=== PATIENT | male | born 1970 | race Caucasian/White ===

== ENCOUNTER → 2019-06-26 09:06 | Outpatient (BNVA) | payer SELFPAY | PROVIDERS: PCP Nurse Practitioner; Visit Provider Nurse Practitioner Family | DX: I10 Essential (primary) hypertension (principal); F17.200 Nicotine dependence, unspecified, uncomplicated; H00.15 Chalazion left lower eyelid; R06.2 Wheezing | CPT/HCPCS: 80061 ==

== ENCOUNTER → 2020-02-20 15:35 | Outpatient (BNVA) | payer OTHER, SELFPAY | PROVIDERS: PCP Nurse Practitioner; Visit Provider Nurse Practitioner Family | DX: M54.2 Cervicalgia (principal); M25.512 Pain in left shoulder; V89.2XXS Person injured in unspecified motor-vehicle accident, traffic, sequela | CPT/HCPCS: 72040; 73030 ==

== ENCOUNTER → 2020-04-07 14:50 | Outpatient (BNVA) | payer OTHER, SELFPAY | PROVIDERS: PCP Nurse Practitioner; Visit Provider Nurse Practitioner Family | DX: R07.89 Other chest pain (principal) | CPT/HCPCS: 71046 ==

== ENCOUNTER → 2020-11-13 15:59 | Outpatient (BNVA) | payer SELFPAY | PROVIDERS: PCP Nurse Practitioner; Visit Provider Family Medicine | DX: E78.5 Hyperlipidemia, unspecified (principal); I10 Essential (primary) hypertension; Z68.35 Body mass index [BMI] 35.0-35.9, adult; F17.210 Nicotine dependence, cigarettes, uncomplicated | CPT/HCPCS: 80053; 80061; 83721; 84443 ==

== ENCOUNTER 2021-12-22 14:14 | Emergency (ER) | payer SELFPAY ==
[2021-12-22 15:04] VITALS: BP 101/68; PULSE 108; RESP 16; TEMP 36.9; BMI 36.6
--- NOTE | 2021-12-22 15:04 | XRR_ITS ---
PROCEDURE INFORMATION: Exam: XR Chest Exam date and time: 12/22/2021 3:15 PM Age: 51 years old Clinical indication: Chest pressure; Patient HX: History--chest pain since yesterday TECHNIQUE: Imaging protocol: Radiologic exam of the chest. Views: 1 view. COMPARISON: CR XR chest 2V* [id number] 04/07/2020 2:49 PM FINDINGS: Lungs: Cardiac silhouette size, and vascularity are somewhat accentuated, likely related to poor inspiration/expansion however clinical correlation for mild CHF should be obtained. Upper lungs are clear. Lung bases are suboptimally assessed. Pleural spaces: No large pleural effusions however CP angles are partially excluded.. No pneumothorax. Heart/Mediastinum: As above. Bones/joints: No acute osseous findings. Other findings: Single view was submitted. XR/XR chest 1V portable [id number] IMPRESSION: 1. Accentuated cardiac silhouette size and vascularity. See discussion above. 2. No obvious acute consolidation. Suboptimal lung base assessment. Followup including lateral view may be obtained if clinically indicated.
--- NOTE | 2021-12-22 15:18 | ECG_ITS ---
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 Measurements Intervals [place] Rate: 99 P: 20 MD: 155 QRS: 81 QRSD: 86 T: 2 QT: 314 QTc: 403 Interpretive Statements SINUS RHYTHM Compared to ECG 03/27/2019 00:51:37 Sinus tachycardia no longer present Electronically Signed On 12-22-2021 17:28:27 CDT by Riccardo Marie M.D. [email or web address]
[2021-12-22 15:21] LABS: Basophils % 0.3 %; Eosinophils # 0.5 10^3/uL (0.0-0.8); Eosinophils % 5.9 %; Hematocrit 49.7 % (42.0-52.0); Hemoglobin 16.6 g/dL (11.7-16.6); Lymphocytes # 1.6 10^3/uL (0.8-4.8); Lymphocytes % 18.7 %; Mean Corpuscular HGB Conc 33.4 g/dL (30.0-36.0); Mean Corpuscular Hemoglobin 30.5 pg (28.0-34.0); Mean Corpuscular Volume 91.2 fl (80-94); Mean Platelet Volume 11.3 fL (7.4-10.4); Monocytes # 0.9 10^3/uL (0.2-0.9); Monocytes % 9.9 %; Neutrophils # 5.55 10^3/uL (1.8-7.7); Neutrophils % 64.4 %; Nucleated Red Blood Cells % 0 %; Platelet Count 152 10^3/cmm (130-400); Red Blood Count 5.45 10^6/uL (4.1-5.3); Red Cell Distribution Width 13.5 % (12.1-15.1); White Blood Count 8.6 10^3/uL (4.0-10.0)
--- NOTE | 2021-12-22 15:33 | ED_ITS ---
Documented by User: Clyde Peterson DO 12/23/21 08:23 HPI - Chest Pain General: Chief Complaint: Chest Pain Stated Complaint: upper abd pain Time Seen by Provider: 12/22/21 15:04 Source: patient Mode of arrival: ambulatory Limitations: no limitations History of Present Illness: 51-year-old male presents emergency room complaining of shortness of breath and chest scum for the last couple of weeks. Has not had any fever sweats or chills not anything that exacerbates or relieves it he also had some accompanying dizziness states it is worse when he bends over and stands up but has been happening more frequently. He had previously had an angiogram due to chest pain which he tells me was negative this was done about 8 years ago. He is currently on lisinopril as well as Lasix and potassium supplement. Has not had any recent medication changes. He is not diabetic and does not smoke. He has not noticed anything that exacerbates or relieves his symptoms of chest pain. MD complaint: chest pain Onset (ago): week(s) (2) Timing of current episode: episodic Prior episodes: Yes Onset: during rest and during exertion Pain location: left chest Pain radiation: none Severity: mild Quality: tightness Relieving factors: nothing Exacerbating factors: nothing Associated symptoms: Deny abdominal pain, diaphoresis, dyspnea, fever(s), leg edema, nausea, palpitations, sense of impending doom, syncope or vomiting Treatment prior to arrival: none Review of Systems Const: Denies: fever(s), chills, fatigue, malaise or diaphoresis ENMT: Denies: throat pain, ear or mastoid pain, nasal discharge or nasal conge stion Card: Reports: chest pain; Denies: palpitations, irregular heart rhythm or syncope Resp: Denies: dyspnea, productive cough or non-productive cough GI: Denies: abdominal pain, nausea or vomiting : Denies: flank pain, dysuria, urinary frequency or urinary urgency Skin/Breast: Denies: rash or pruritus PFSH ED PFSH: Medical History Dyslipidemia Hypertension Smoker Surgical History History of arthroscopic surgery of shoulder right 2014 History of surgery on left wrist cyst removed Family History Mother Cancer Hypertension Grandmother Diabetes Social History Second hand smoke exposure: No Smoking risk assessment/counseling performed?: Yes Alcohol intake: never Desire information about alcohol rehabilitation?: No Counseling given: No Desire information about substance/drug rehabilitation?: No Counseling given: No Adopted: No Caregiver/support person: No Lives independently: Yes Household members: significant other Housing: Manufactured/Mobile home Marital status: Number of children: 2 Highest education level completed: Some College, No Degree service: No Current occupational status: unemployed Pets and animals: No History of recent travel: No Physical Exam Const: GENERAL APPEARANCE: cooperative and comfortable ORIENTATION/CONSCIOUSNESS: Yes awake, Yes oriented to person, Yes oriented to place and Yes oriented to time HENMT: COMMON NORMALS: normocephalic and atraumatic HEAD & SCALP: no rmocephalic and atraumatic Neck/C-Spine: COMMON NORMALS: no JVD Resp: COMMON NORMALS: normal respiratory effort, No retractions, No use of accessory muscles and clear to auscultation bilaterally AUSCULTATION: clear to auscultation bilaterally Cardio: COMMON NORMALS: no JVD, regular rate, regular rhythm and No murmurs present (Cardio) RATE: regular rate RHYTHM: regular rhythm GI: COMMON NORMALS: Soft to palpation and No hepatosplenomegaly present AUSCULTATION: Yes normoactive bowel sounds PALPATION: Yes Soft to palpation, No Tenderness to palpation present (GI), No Guarding due to palpation present (GI) and Yes No hepatosplenomegaly present Extremity: COMMON NORMALS: normal to inspection, capillary refill normal, no clubbing, cyanosis or edema, no calf tenderness and no pedal edema Neuro: SENSORIUM/ORIENTATION: Yes oriented to person, Yes oriented to place and Yes oriented to time Skin: COMMON NORMALS: no rashes or lesions noted GENERAL SKIN EXAM: no rashes or lesions noted Course Vital Signs: Vital signs: Vital Signs Temperature 98.5 F 12/22/21 15:04 Pulse Rate 75 12/22/21 18:38 Respiratory Rate 18 12/22/21 18:38 Blood Pressure 101/68 12/22/21 18:38 Pulse Oximetry 97 12/22/21 18:38 MDM - Chest Pain Medical Decision Making Care signed out to Dr. Sim at change of shift. See final notes for diagnosis and disposition. Patient presents here with chest pains atypical in nature patient's troponins here are normal did have slightly elevated creatinine but he feels improved here after fluids was able to urinate could have some heat exposure as well causing his symptoms. Feel he is stable for discharge he is to follow-up his PCP in 2 to 4 days return if worsening he understands agrees to plan. Medical Records I reviewed the patient's medical records. Lab Data I reviewed the patient's lab results. : 12/22/21 15:10 12/22/21 15:10 Radiology Impressions Chest X-Ray 12/22/21 15:04 IMPRESSION: 1. Accentuated cardiac silhouette size and vascularity. See discussion above. 2. No obvious acute consolidation. Suboptimal lung base assessment. Followup including lateral view may be obtained if clinically indicated. Laboratory Results WBC 8.6 10^3/uL (4.0-10.0) 12/22/21 15:10 RBC 5.45 10^6/uL (4.1-5.3) H 12/22/21 15:10 Hgb 16.6 g/dL (11.7-16.6) 12/22/21 15:10 Hct 49.7 % (42.0-52.0) 12/22/21 15:10 MCV 91.2 fl (80-94) 12/22/21 15:10 MCH 30.5 pg (28.0-34.0) 12/22/21 15:10 MCHC 33.4 g/dL (30.0-36.0) 12/22/21 15:10 RDW 13.5 % (12.1-15.1) 12/22/21 15:10 Plt Count 152 10^3/cmm (130-400) 12/22/21 15:10 MPV 11.3 fL (7.4-10.4) H 12/22/21 15:10 Neut % (Auto) 64.4 % 12/22/21 15:10 Lymph % (Auto) 18.7 % 12/22/21 15:10 [place] % (Auto) 9.9 % 12/22/21 15:10 Eos % (Auto) 5.9 % 12/22/21 15:10 Baso % (Auto) 0.3 % 12/22/21 15:10 Neut # (Auto) 5.55 10^3/uL (1.8-7.7) 12/22/21 15:10 Lymph # (Auto) 1.6 10^3/uL (0.8-4.8) 12/22/21 15:10 [place] # (Auto) 0.9 10^3/uL (0.2-0.9) 12/22/21 15:10 Eos # (Auto) 0.5 10^3/uL (0.0-0.8) 12/22/21 15:10 Baso # (Auto) 0.0 10^3/uL (0.0-0.1) 12/22/21 15:10 Nucleated RBC % (auto) 0 % 12/22/21 15:10 Nucleated RBCs # 0.0 /100WBC 12/22/21 15:10 Sodium 140 mmol/L (136-145) 12/22/21 15:10 Potassium 4.7 mmol/L (3.5-5.1) 12/22/21 15:10 Chloride 100 mmol/L (98-107) 12/22/21 15:10 Carbon Dioxide 26 mmol/L (22-29) 12/22/21 15:10 Anion Gap 18.7 (5-19) 12/22/21 15:10 BUN 42 mg/dL (6-20) H 12/22/21 15:10 Creatinine 2.0 mg/dL (0.7-1.2) H 12/22/21 15:10 GFR Calculation 35.4 mL/min (90-130) L 12/22/21 15:10 Glucose 101 mg/dL (65-115) 12/22/21 15:10 Calculated Osmolality 301 mOsm/kg (285-295) H 12/22/21 15:10 Calcium 10.0 mg/dL (8.5-10.5) 12/22/21 15:10 Total Bilirubin 0.3 mg/dL (0.15-1.2) 12/22/21 15:10 AST 14 U/L (0-40) 12/22/21 15:10 ALT 14 U/L (0-41) 12/22/21 15:10 Alkaline Phosphatase 87 IU/L (40-130) 12/22/21 15:10 Troponin T Baseline 8 ng/L (0-15) 12/22/21 15:10 Troponin T 120 Minute 6.00 ng/L (0-15) 12/22/21 17:01 Delta Troponin T 2 ABS# (0-10) 12/22/21 17:01 Total Protein 8.5 g/dL (6.6-8.7) 12/22/21 15:10 Albumin 4.6 g/dL (3.5-5.2) 12/22/21 15:10 Globulin 3.9 g/dL (1.3-4.6) 12/22/21 15:10 Lipase 46 U/L (13-60) 12/22/21 15:10 Discharge Plan Discharge Patient Disposition: Home Clinical Impression: Chest pain Condition: Stable Prescriptions: No Action aspirin [Adult Low Dose Aspirin] 81 mg tablet,delayed release (DR/EC) 81 mg PO DAILY 0RF rizatriptan [Maxalt] 10 mg tablet See Rx Instructions PO .COMPLEX Qty: 14 2RF Rx Instructions: take 1 tab at onset of headache; if no relief may repeat 1 tab after at least 2 hrs; max = 2 tabs/24 hr PO furosemide 20 mg tablet See Rx Instructions .ROUTE .COMPLEX Qty: 30 0RF Dose Instruction: Take 1 tablet by mouth once daily Rx Instructions: Take 1 tablet by mouth once daily lisinopril 40 mg tablet See Rx Instructions .ROUTE .COMPLEX Qty: 30 3RF Dose Instruction: Take 1 tablet by mouth once daily Rx Instructions: Take 1 tablet by mouth once daily triamcinolone acetonide 0.1 % cream 1 applic topical BID Qty: 30 1RF potassium chloride 10 mEq capsule, extended release 10 meq PO DAILY Qty: 30 2RF Discharge Orders: Discharge ED (Routine); Ordered 12/22/21 Ordered By: Jorge Sim Referrals: Marla Cheatham, RUSSIAN HISTORY PROFESSOR-C [Primary Care Provider] - Discharge Diet: Advance as tolerated Discharge Activity: Resume usual activity Patient Instructions: Chest Pain (ED) Coding Level of Care Code ED Manager Of It for Chg Fwd Exam Comprehensive Documented by User: Jorge Sim MD 12/22/21 19:00 HPI - Chest Pain General: Chief Complaint: Chest Pain Stated Complaint: upper abd pain Time Seen by Provider: 12/22/21 15:04 PFSH ED PFSH: Medical History Dyslipidemia Hypertension Smoker Surgical History History of arthroscopic surgery of shoulder right 2014 History of surgery on left wrist cyst removed Family History Mother Cancer Hypertension Grandmother Diabetes Social History Second hand smoke exposure: No Smoking risk assessment/counseling performed?: Yes Alcohol intake: never Desire information about alcohol rehabilitation?: No Counseling given: No Desire information about substance/drug rehabilitation?: No Counseling given: No Adopted: No Caregiver/support person: No Lives independently: Yes Household members: significant other Housing: Manufactured/Mobile home Marital status: Number of children: 2 Highest education level completed: Some College, No Degree service: No Current occupational status: unemployed Pets and animals: No History of recent travel: No Course Vital Signs: Vital signs: Vital Signs Temperature 98.5 F 12/22/21 15:04 Pulse Rate 75 12/22/21 18:38 Respiratory Rate 18 12/22/21 18:38 Blood Pressure 101/68 12/22/21 18:38 Pulse Oximetry 97 12/22/21 18:38 MDM - Chest Pain Medical Decision Making Patient presents here with chest pains atypical in nature patient's troponins here are normal did have slightly elevated creatinine but he feels improved here after fluids was able to urinate could have some heat exposure as well causing his symptoms. Feel he is stable for discharge he is to follow-up his PCP in 2 to 4 days return if worsening he understands agrees to plan. Lab Data : 12/22/21 15:10 12/22/21 15:10 Radiology Impressions Chest X-Ray 12/22/21 15:04 IMPRESSION: 1. Accentuated cardiac silhouette size and vascularity. See discussion above. 2. No obvious acute consolidation. Suboptimal lung base assessment. Followup including lateral view may be obtained if clinically indicated. Laboratory Results WBC 8.6 10^3/uL (4.0-10.0) 12/22/21 15:10 RBC 5.45 10^6/uL (4.1-5.3) H 12/22/21 15:10 Hgb 16.6 g/dL (11.7-16.6) 12/22/21 15:10 Hct 49.7 % (42.0-52.0) 12/22/21 15:10 MCV 91.2 fl (80-94) 12/22/21 15:10 MCH 30.5 pg (28.0-34.0) 12/22/21 15:10 MCHC 33.4 g/dL (30.0-36.0) 12/22/21 15:10 RDW 13.5 % (12.1-15.1) 12/22/21 15:10 Plt Count 152 10^3/cmm (130-400) 12/22/21 15:10 MPV 11.3 fL (7.4-10.4) H 12/22/21 15:10 Neut % (Auto) 64.4 % 12/22/21 15:10 Lymph % (Auto) 18.7 % 12/22/21 15:10 [place] % (Auto) 9.9 % 12/22/21 15:10 Eos % (Auto) 5.9 % 12/22/21 15:10 Baso % (Auto) 0.3 % 12/22/21 15:10 Neut # (Auto) 5.55 10^3/uL (1.8-7.7) 12/22/21 15:10 Lymph # (Auto) 1.6 10^3/uL (0.8-4.8) 12/22/21 15:10 [place] # (Auto) 0.9 10^3/uL (0.2-0.9) 12/22/21 15:10 Eos # (Auto) 0.5 10^3/uL (0.0-0.8) 12/22/21 15:10 Baso # (Auto) 0.0 10^3/uL (0.0-0.1) 12/22/21 15:10 Nucleated RBC % (auto) 0 % 12/22/21 15:10 Nucleated RBCs # 0.0 /100WBC 12/22/21 15:10 Sodium 140 mmol/L (136-145) 12/22/21 15:10 Potassium 4.7 mmol/L (3.5-5.1) 12/22/21 15:10 Chloride 100 mmol/L (98-107) 12/22/21 15:10 Carbon Dioxide 26 mmol/L (22-29) 12/22/21 15:10 Anion Gap 18.7 (5-19) 12/22/21 15:10 BUN 42 mg/dL (6-20) H 12/22/21 15:10 Creatinine 2.0 mg/dL (0.7-1.2) H 12/22/21 15:10 GFR Calculation 35.4 mL/min (90-130) L 12/22/21 15:10 Glucose 101 mg/dL (65-115) 12/22/21 15:10 Calculated Osmolality 301 mOsm/kg (285-295) H 12/22/21 15:10 Calcium 10.0 mg/dL (8.5-10.5) 12/22/21 15:10 Total Bilirubin 0.3 mg/dL (0.15-1.2) 12/22/21 15:10 AST 14 U/L (0-40) 12/22/21 15:10 ALT 14 U/L (0-41) 12/22/21 15:10 Alkaline Phosphatase 87 IU/L (40-130) 12/22/21 15:10 Troponin T Baseline 8 ng/L (0-15) 12/22/21 15:10 Troponin T 120 Minute 6.00 ng/L (0-15) 12/22/21 17:01 Delta Troponin T 2 ABS# (0-10) 12/22/21 17:01 Total Protein 8.5 g/dL (6.6-8.7) 12/22/21 15:10 Albumin 4.6 g/dL (3.5-5.2) 12/22/21 15:10 Globulin 3.9 g/dL (1.3-4.6) 12/22/21 15:10 Lipase 46 U/L (13-60) 12/22/21 15:10 Discharge Plan Discharge Patient Disposition: Home Clinical Impression: Chest pain Condition: Stable Prescriptions: No Action aspirin [Adult Low Dose Aspirin] 81 mg tablet,delayed release (DR/EC) 81 mg PO DAILY 0RF rizatriptan [Maxalt] 10 mg tablet See Rx Instructions PO .COMPLEX Qty: 14 2RF Rx Instructions: take 1 tab at onset of headache; if no relief may repeat 1 tab after at least 2 hrs; max = 2 tabs/24 hr PO furosemide 20 mg tablet See Rx Instructions .ROUTE .COMPLEX Qty: 30 0RF Dose Instruction: Take 1 tablet by mouth once daily Rx Instructions: Take 1 tablet by mouth once daily lisinopril 40 mg tablet See Rx Instructions .ROUTE .COMPLEX Qty: 30 3RF Dose Instruction: Take 1 tablet by mouth once daily Rx Instructions: Take 1 tablet by mouth once daily triamcinolone acetonide 0.1 % cream 1 applic topical BID Qty: 30 1RF potassium chloride 10 mEq capsule, extended release 10 meq PO DAILY Qty: 30 2RF Discharge Orders: Discharge ED (Routine); Ordered 12/22/21 Ordered By: Jorge Sim Referrals: Marla Cheatham, RUSSIAN HISTORY PROFESSOR-C [Primary Care Provider] - Discharge Diet: Advance as tolerated Discharge Activity: Resume usual activity Patient Instructions: Chest Pain (ED) Coding Level of Care Code ED Manager Of It for Peggyg Fwd Exam Comprehensive
[2021-12-22 15:38] LABS: Troponin(5th) Baseline 8 ng/L (0-15)
[2021-12-22 15:47] LABS: Alanine Aminotransferase 14 U/L (0-41); Albumin Level 4.6 g/dL (3.5-5.2); Alkaline Phosphatase 87 IU/L (40-130); Anion Gap 18.7 (5-19); Aspartate Amino Transferase 14 U/L (0-40); Blood Urea Nitrogen 42 mg/dL (6-20); Carbon Dioxide 26 mmol/L (22-29); Chloride 100 mmol/L (98-107); Globulin 3.9 g/dL (1.3-4.6); Glomerular Filtration Rate 35.4 mL/min (90-130); Glucose 101 mg/dL (65-115); Lipase 46 U/L (13-60); Osmolality Calculated 301 mOsm/kg (285-295); Potassium 4.7 mmol/L (3.5-5.1); Sodium 140 mmol/L (136-145); Total Bilirubin 0.3 mg/dL (0.15-1.2); Total Protein 8.5 g/dL (6.6-8.7)
[2021-12-22] MEDS: sodium chloride 0.9% 1,000 ML 999 ML IV ×2 (16:56→16:58)
[2021-12-22 18:29] LABS: Troponin 5 2HR Delta 2 ABS# (0-10)
[2021-12-22 18:38] VITALS: BP 101/68; PULSE 75; RESP 18; O2SAT 97
== END 2021-12-22 19:16 | disposition home or self-care (01) ==
PROVIDERS: Emergency Medicine; Family Medicine; Emergency Provider Emergency Medicine; PCP Nurse Practitioner
DX: R07.9 Chest pain, unspecified (principal); Z79.82 Long term (current) use of aspirin; I10 Essential (primary) hypertension; E78.5 Hyperlipidemia, unspecified
CPT/HCPCS: 71045; 80053; 83690; 84484; 85025; 93005; 96360; 99285; J7030

== ENCOUNTER 2022-02-05 12:23 | Emergency (ER) | payer SELFPAY ==
[2022-02-05 12:36] VITALS: BP 121/82; PULSE 90; RESP 16; TEMP 36.8; O2SAT 96; BMI 36.6
--- NOTE | 2022-02-05 12:40 | ECG_ITS ---
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 Measurements Intervals [place] Rate: 87 P: 32 ME: 171 QRS: 40 QRSD: 97 T: 34 QT: 327 QTc: 394 Interpretive Statements SINUS RHYTHM INTERPRETATION BASED ON A DEFAULT AGE OF 40 YEARS Compared to ECG 12/22/2021 15:12:36 No significant changes Electronically Signed On 02-06-2022 9:19:51 CDT by Donny Scales M.D. [id number] f
--- NOTE | 2022-02-05 12:43 | XR_ITS ---
WS: [id number] Portable AP upright chest, 02/05/2022 Clinical Data: Chest Pain Comparison: Portable chest, 12/22/2021. Findings: No nodules, masses or effusions are seen. The heart is slightly enlarged. The pulmonary vas cularity is not increased. No pneumonia or pneumothorax is seen. XR/XR chest 1V portable [id number] Impression: Mild cardiomegaly.
--- NOTE | 2022-02-05 12:50 | W.ED.CHESTPA ---
HPI - Chest Pain General: Chief Complaint: Chest Pain Stated Complaint: Chest Pain Time Seen by Provider: 02/05/22 12:47 Source: patient and family Mode of arrival: ambulatory Limitations: no limitations History of Present Illness: This patient is in the emergency department today because he is concerned about fatigue upper chest and shoulder and arm pain. He states the symptoms of been coming on over the past week perhaps 2 weeks. He states he just does not feel right. He states he feels fatigued and less energetic than normal. 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 He denies any associated shortness of breath or nausea or sweating with the symptoms. He states he thinks he has been drinking quite a bit of fluids and been eating relatively normal. He has not had any other constitutional symptoms such as a cough, fever, joint pains body aches otherwise. He states he is not been exposed to any infectious disease that he is aware. No one else is ill at home. He is a tobacco user and occasionally wheezes but he does not use his inhaler very much. He states his sleep is been relatively normal although again he is felt this fatigue over the past 2 weeks. He states he is not sad or depressed. He does not drink alcohol. He has hypertension and takes lisinopril and previously took furosemide but is does no longer take that medication and its not clear why he was taking it. He states that he has been told he had heart failure he had no peripheral edema etc. MD complaint: chest heaviness and chest discomfort Onset: during exertion Pain location: substernal Pain radiation: left shoulder and right shoulder Quality: tightness and aching Relieving factors: rest Exacerbating factors: exertion Associated symptoms: Deny dyspnea, fever(s), nausea, palpitations or vomiting Risk Factors: Coronary artery disease risk factors: smoking history and hypertension Review of Systems Const: Denies: fever(s), chills or body aches Eyes: Denies: change in vision ENMT: Denies: odynophagia, dental pain, nasal discharge or nasal congestion Card: Reports: pre-syncope; Denies: palpitations, irregular heart rhythm or swelling of feet/ankles Resp: Reports: wheezing (Occasionally); Denies: dyspnea, productive cough or non-productive cough GI: Denies: nausea, vomiting or diarrhea : Denies: flank pain, difficulty urinating, dysuria or urinary frequency Skin/Breast: Denies: rash Neuro: Denies: headache(s), numbness in extremities, weakness in extremities, sensory changes or difficulty walking Psych: Denies: anxiety, depression, sleeping less or change in appetite Endo: Denies: polyuria or polydipsia Raj/Lymph: Denies: easy bruising PFSH ED PFSH: Medical History Dyslipidemia Hypertension Smoker Surgical History History of arthroscopic surgery of shoulder right 2014 History of surgery on left wrist cyst removed Family History Mother Cancer Hypertension Grandmother Diabetes Social History Smoking and tobacco status: never smoked Second hand smoke exposure: No Smoking risk assessment/counseling performed?: Yes Alcohol intake: never Desire information about alcohol rehabilitation?: No Counseling given: No Desire information about substance/drug rehabilitation?: No Counseling given: No Adopted: No Caregiver/support person: No Lives independently: Yes Household members: significant other Housing: Manufactured/Mobile home Marital status: Number of children: 2 Highest education level completed: Some College, No Degree service: No Current occupational status: unemployed Pets and animals: No History of recent travel: No Physical Exam Narrative: EXAM NARRATIVE: Patient is comfortable, cooperative, alert. Const: COMMON NORMALS: no acute distress, patient oriented x3, healthy appearing and alert NUTRITIONAL APPEARANCE: overweight HENMT: COMMON NORMALS: normocephalic, atraumatic, moist oral mucous membranes and oropharynx normal HEAD & SCALP: normocephalic and atraumatic FACE & SINUS: normal facial exam Eye: COMMON NORMALS: Equal, round and reactive pupils present, EOMs intact bilaterally and conjunctivae normal CONJUNCTIVA: Yes conjunctivae normal PUPIL: Yes Equal, round and reactive pupils present Neck/C-Spine: COMMON NORMALS: full ROM CERVICAL SPINE: No Cervical spine tenderness, No Paracervical muscle tenderness, No Paracervical spasm and No Trapezius muscle tenderness Lymph: LYMPHATIC: no lymphadenopathy noted Chest: COMMONS NORMALS: normal inspection of the chest and normal palpation of entire chest wall Resp: COMMON NORMALS: normal respiratory effort, No use of accessory muscles, clear to auscultation bilaterally and percussion normal EFFORT & INSPECTION: Yes able to speak in complete sentences AUSCULTATION: clear to auscultation bilaterally PERCUSSION: percussion normal Cardio: COMMON NORMALS: regular rate, regular rhythm, No murmurs present (Cardio) and Peripheral pulses 2+ throughout RATE: regular rate RHYTHM: regular rhythm PERIPHERAL PULSES: Peripheral pulses 2+ throughout GI: COMMON NORMALS: Normal to inspection, nondistended, normoactive bowel sounds present, Soft to palpation, non-tender and no masses PALPATION: Yes Soft to palpation : COMMON NORMALS: Yes no CVA tenderness BLADDER/KIDNEY EXAM: Yes no CVA tenderness Back/Pelvis: COMMON NORMALS: no CVA tenderness, thoracic and lumbar spine normal to inspection, no thoracic nor lumbar tenderness, thoraco-lumbar ROM normal and straight leg raise negative bilaterally Extremity: COMMON NORMALS: normal to inspection, full ROM, capillary refill normal, no joint enlargement, no clubbing, cyanosis or edema, no calf tenderness and no pedal edema Neuro: COMMON NORMALS: patient oriented x3, moves all extremities, no focal motor deficits, no sensory deficits noted and gait normal SENSORIUM/ORIENTATION: Yes alert CRANIAL NERVES: Yes CN normal except as noted Psych: COMMON NORMALS: mental status grossly normal and cooperative Skin: COMMON NORMALS: no rashes or lesions noted, no wounds and turgor normal GENERAL SKIN EXAM: no rashes or lesions noted and turgor normal Course Reevaluation(s): Reevaluation #1: Patient is remained pain-free since admission to the emergency department. He has received a liter of fluids while in the emergency department as well. His studies were reviewed with both he and his spouse and a plan of care was discussed. He is stable at this time to be discharged with outpatient follow-up. Time: 16:24 Vital Signs: Vital signs: Vital Signs Temperature 98.2 F 02/05/22 12:36 Pulse Rate 90 02/05/22 12:36 Respiratory Rate 16 02/05/22 12:36 Blood Pressure 121/82 02/05/22 12:36 Pulse Oximetry 96 02/05/22 12:36 Oxygen Delivery Me thod 02/05/22 12:36 MDM - Chest Pain Medical Decision Making Patient who presented to the emergency department with a history of having some symptoms suggestive of possible angina. He states he is notices some chest discomfort and some shoulder discomfort when he is at work. He works at quite a vigorous occupation at the [employer]. He states that that when he is at rest he usually does not develop any of these symptoms. His clinical examination was unrevealing for any signs of musculoskeletal etiology today. His work-up did not reveal any evidence of troponin elevation EKG changes or rhythm changes while in the emergency department. He did show signs of mild volume depletion and he was rehydrated in the emergency department. He is stable without any evidence of ACS or other worrisome condition at this time but he needs additional provocative testing and follow-up. His will call her gameroom technician on Tuesday to arrange a follow-up appointment. He is stable at this time we discussed return precautions and both he and his spouse acknowledged the discussion and were appreciative of care. Medical Records I reviewed the patient's medical records. Lab Data I reviewed the patient's lab results. : 02/05/22 13:19 02/05/22 13:19 Radiology Impressions Chest X-Ray 02/05/22 12:43 Impression: Mild cardiomegaly. Laboratory Results WBC 6.2 10^3/uL (4.0-10.0) 02/05/22 13:19 RBC 5.03 10^6/uL (4.1-5.3) 02/05/22 13:19 Hgb 15.2 g/dL (11.7-16.6) 02/05/22 13:19 Hct 48.0 % (42.0-52.0) 02/05/22 13:19 MCV 95.4 fl (80-94) H 02/05/22 13:19 MCH 30.2 pg (28.0-34.0) 02/05/22 13:19 MCHC 31.7 g/dL (30.0-36.0) 02/05/22 13:19 RDW 13.4 % (12.1-15.1) 02/05/22 13:19 Plt Count 144 10^3/cmm (130-400) 02/05/22 13:19 MPV 11.3 fL (7.4-10.4) H 02/05/22 13:19 Neut % (Auto) 58.6 % 02/05/22 13:19 Lymph % (Auto) 25.5 % 02/05/22 13:19 [place] % (Auto) 9.3 % 02/05/22 13:19 Eos % (Auto) 5.9 % 02/05/22 13:19 Baso % (Auto) 0.5 % 02/05/22 13:19 Neut # (Auto) 3.66 10^3/uL (1.8-7.7) 02/05/22 13:19 Lymph # (Auto) 1.6 10^3/uL (0.8-4.8) 02/05/22 13:19 [place] # (Auto) 0.6 10^3/uL (0.2-0.9) 02/05/22 13:19 Eos # (Auto) 0.4 10^3/uL (0.0-0.8) 02/05/22 13:19 Baso # (Auto) 0.0 10^3/uL (0.0-0.1) 02/05/22 13:19 Nucleated RBC % (auto) 0 % 02/05/22 13:19 Nucleated RBCs # 0.0 /100WBC 02/05/22 13:19 Sodium 141 mmol/L (136-145) 02/05/22 13:19 Potassium 4.8 mmol/L (3.5-5.1) 02/05/22 13:19 Chloride 102 mmol/L (98-107) 02/05/22 13:19 Carbon Dioxide 28 mmol/L (22-29) 02/05/22 13:19 Anion Gap 15.8 (5-19) 02/05/22 13:19 BUN 29 mg/dL (6-20) H 02/05/22 13:19 Creatinine 1.2 mg/dL (0.7-1.2) 02/05/22 13:19 GFR Calculation 63.8 mL/min (90-130) L 02/05/22 13:19 Glucose 97 mg/dL (65-115) 02/05/22 13:19 Calculated Osmolality 298 mOsm/kg (285-295) H 02/05/22 13:19 Calcium 9.5 mg/dL (8.5-10.5) 02/05/22 13:19 Total Bilirubin 0.4 mg/dL (0.15-1.2) 02/05/22 13:19 AST 15 U/L (0-40) 02/05/22 13:19 ALT 12 U/L (0-41) 02/05/22 13:19 Alkaline Phosphatase 81 U/L (40-130) 02/05/22 13:19 Troponin T Baseline 6 ng/L (0-15) 02/05/22 13:19 Troponin T 120 Minute 6.00 ng/L (0-15) 02/05/22 15:18 Delta Troponin T 0 ABS# (0-10) 02/05/22 15:18 Total Protein 7.0 g/dL (6.6-8.7) 02/05/22 13:19 Albumin 4.4 g/dL (3.5-5.2) 02/05/22 13:19 Globulin 2.6 g/dL (1.3-4.6) 02/05/22 13:19 EKG Data EKG 1: I personally reviewed and interpreted this EKG as follows: EKG interpretation time: 12:48 Interpretation: Resting EKG reveals ventricular rate of 87 bpm consistent with sinus rhythm. Intervals IA QTC are normal. QRS duration is normal. [place] is normal. No acute ST-T wave changes noted at this time. EKG 2: I personally reviewed and interpreted this EKG as follows: Interpretation: Second EKG this visit reveals normal sinus rhythm with a ventricular rate of 63 bpm. No change in this electrocardiogram compared with earlier cardiogram this date. Normal intervals and normal axis. No ST-T wave changes. Discharge Plan Discharge Patient Disposition: Home Clinical Impression: Chest pain, Essential hypertension Condition: Stable Prescriptions: New nitroglycerin 0.4 mg tablet, sublingual 0.4 mg sublingual Q5M PRN (Reason: chest pain) Qty: 60 0RF Rx Instructions: do not exceed 3 doses per episode No Action aspirin [Adult Low Dose Aspirin] 81 mg tablet,delayed release (DR/EC) 81 mg PO DAILY Krill Oil ([place] 3 and 6) 1000-130(40-80) mg Capsule 1 cap PO DAILY lisinopril 40 mg tablet 40 mg PO DAILY Discharge Orders: Discharge ED (Routine); Ordered 02/05/22 Ordered By: Vincent Torres Referrals: Marla Cheatham, TRANSPORTATION OPERATIONS MANAGER-C [Primary Care Provider] - Discharge Diet: Usual diet Discharge Activity: Increase activity as tolerated Patient Instructions: Opioid Safety Activity Restrictions/Additional Instructions: Call your spouse's gameroom technician on Tuesday to arrange a follow-up this coming week. We have also provided a prescription for nitroglycerin tablets to use should you develop chest pressure pain or discomfort. Use 1 of those under your tongue every 5 minutes for maximum of 3 tablets over 15 minutes. If you continue to have chest pain call 911 or proceed to the nearest emergency department immediately. Continue all your other usual medications. Also ensure that you drink at least 2 quarts of water or sports drinks daily. Coding Level of Care Code ED Toll Relief Operator for Efra Fwd Exam Comprehensive
--- NOTE | 2022-02-05 13:27 | PC.NURSE ---
pt placed on continuous spo2, nibp, and cm.
[2022-02-05 13:45] LABS: Basophils % 0.5 %; Eosinophils # 0.4 10^3/uL (0.0-0.8); Eosinophils % 5.9 %; Hemoglobin 15.2 g/dL (11.7-16.6); Lymphocytes # 1.6 10^3/uL (0.8-4.8); Lymphocytes % 25.5 %; Mean Corpuscular HGB Conc 31.7 g/dL (30.0-36.0); Mean Corpuscular Hemoglobin 30.2 pg (28.0-34.0); Mean Corpuscular Volume 95.4 fl (80-94); Mean Platelet Volume 11.3 fL (7.4-10.4); Monocytes # 0.6 10^3/uL (0.2-0.9); Monocytes % 9.3 %; Neutrophils # 3.66 10^3/uL (1.8-7.7); Neutrophils % 58.6 %; Nucleated Red Blood Cells % 0 %; Platelet Count 144 10^3/cmm (130-400); Red Blood Count 5.03 10^6/uL (4.1-5.3); Red Cell Distribution Width 13.4 % (12.1-15.1); White Blood Count 6.2 10^3/uL (4.0-10.0)
[2022-02-05 14:02] LABS: Alanine Aminotransferase 12 U/L (0-41); Albumin Level 4.4 g/dL (3.5-5.2); Alkaline Phosphatase 81 U/L (40-130); Anion Gap 15.8 (5-19); Aspartate Amino Transferase 15 U/L (0-40); Blood Urea Nitrogen 29 mg/dL (6-20); Calcium 9.5 mg/dL (8.5-10.5); Carbon Dioxide 28 mmol/L (22-29); Chloride 102 mmol/L (98-107); Globulin 2.6 g/dL (1.3-4.6); Glomerular Filtration Rate 63.8 mL/min (90-130); Glucose 97 mg/dL (65-115); Osmolality Calculated 298 mOsm/kg (285-295); Potassium 4.8 mmol/L (3.5-5.1); Sodium 141 mmol/L (136-145); Total Bilirubin 0.4 mg/dL (0.15-1.2)
[2022-02-05 14:10] LABS: Troponin(5th) Baseline 6 ng/L (0-15)
[2022-02-05] MEDS: sodium chloride 0.9% 1,000 ML 999 ML IV (14:53)
--- NOTE | 2022-02-05 15:11 | ECG_ITS ---
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 Measurements Intervals [place] Rate: 63 P: 24 WI: 155 QRS: 47 QRSD: 99 T: 34 QT: 376 QTc: 388 Interpretive Statements SINUS RHYTHM Compared to ECG 02/05/2022 12:40:52 No significant changes Electronically Signed On 02-06-2022 9:27:53 CDT by Donny Scales M.D. [id number]
[2022-02-05 15:30] VITALS: BP 127/88; PULSE 64; RESP 15; O2SAT 96
[2022-02-05 16:02] LABS: Troponin 5 2HR Delta 0 ABS# (0-10)
[2022-02-05 16:30] VITALS: BP 121/72; PULSE 82; RESP 17; O2SAT 97
== END 2022-02-05 16:53 | disposition home or self-care (01) ==
PROVIDERS: Emergency Medicine; Emergency Provider Emergency Medicine; PCP Nurse Practitioner
DX: R07.9 Chest pain, unspecified (principal); I10 Essential (primary) hypertension; Z79.82 Long term (current) use of aspirin; E78.5 Hyperlipidemia, unspecified
CPT/HCPCS: 71045; 80053; 84484; 85025; 93005; 99285; J7030

== ENCOUNTER 2022-03-21 19:12 | Emergency (ER) | payer SELFPAY ==
[2022-03-21 19:15] VITALS: BP 181/105; PULSE 81; RESP 18; TEMP 36.6; BMI 36.6
--- NOTE | 2022-03-21 19:30 | XRR_ITS ---
PROCEDURE INFORMATION: Exam: XR Chest Exam date and time: 03/21/2022 7:37 PM Age: 51 years old Clinical indication: Pain; Chest pressure; Additional info: Chest tightness TECHNIQUE: Imaging protocol: Radiologic exam of the chest. Views: 1 view. COMPARISON: CR XR chest 1V portable [id number] 02/05/2022 1:07 PM FINDINGS: Lungs: Lungs are clear bilaterally. Pleural spaces: No pleural effusion. No pneumothorax. Heart/Mediastinum: Stable mild enlargement of the cardiac silhouette. Mediastinal contours are unremarkable. Bones/joints: Unremarkable for age. XR/XR chest 1V portable [id number] IMPRESSION: 1. No acute cardiopulmonary process. 2. Incidental/nonacute findings are listed in the report.
--- NOTE | 2022-03-21 19:32 | ECG_ITS ---
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 Measurements Intervals [place] Rate: 85 P: 33 DE: 172 QRS: 9 QRSD: 104 T: 48 QT: 341 QTc: 407 Interpretive Statements SINUS RHYTHM Compared to ECG 02/05/2022 15:11:38 No significant changes Electronically Signed On 03-22-2022 21:19:23 CDT by Pat Zuniga M.D. [id number]
[2022-03-21] MEDS: nitroglycerin 1 gm/inch oint Pkt 1 INCH TOPICAL (19:58)
[2022-03-21] MEDS: aspirin 325 mg Tablet PO (19:58)
[2022-03-21 19:59] VITALS: BP 167/111; PULSE 85; RESP 16; O2SAT 95
[2022-03-21 19:59] LABS: Basophils % 0.7 %; Eosinophils # 0.3 10^3/uL (0.0-0.8); Eosinophils % 5.8 %; Hematocrit 47.5 % (42.0-52.0); Hemoglobin 15.3 g/dL (11.7-16.6); Lymphocytes # 1.6 10^3/uL (0.8-4.8); Lymphocytes % 27.8 %; Mean Corpuscular HGB Conc 32.2 g/dL (30.0-36.0); Mean Corpuscular Hemoglobin 30.7 pg (28.0-34.0); Mean Corpuscular Volume 95.4 fl (80-94); Mean Platelet Volume 11.5 fL (7.4-10.4); Monocytes # 0.6 10^3/uL (0.2-0.9); Monocytes % 9.4 %; Neutrophils # 3.27 10^3/uL (1.8-7.7); Neutrophils % 56.1 %; Nucleated Red Blood Cells % 0 %; Platelet Count 120 10^3/cmm (130-400); Red Blood Count 4.98 10^6/uL (4.1-5.3); Red Cell Distribution Width 13.5 % (12.1-15.1); White Blood Count 5.8 10^3/uL (4.0-10.0)
[2022-03-21] MEDS: ondansetron 2 mg/ML SDV 2 mL 4 MG IVP (19:59)
[2022-03-21 20:18] LABS: Troponin(5th) Baseline 6 ng/L (0-15)
--- NOTE | 2022-03-21 20:23 | ED_ITS ---
HPI - Chest Pain General: Chief Complaint: Chest Pain Stated Complaint: High B/P, right arm pian Time Seen by Provider: 03/21/22 19:35 Source: patient History of Present Illness: 51-year-old male presents with 2 to 3 days of chest and left neck discomfort. He denies any fever. He does report a chronic cough, as he is a smoker. He has no history of coronary disease. He checked his blood pressure today, and its been quite high. The highest was in the 180s systolic. He has been taking his lisinopril faithfully. He has had a mild headache today with his blood pressure being elevated. MD complaint: chest discomfort Pertinent past history: other Onset (ago): day(s) Timing of current episode: episodic Prior episodes: Yes Onset: during rest Pain location: left chest Pain radiation: neck Severity: moderate Quality: aching Relieving factors: nothing Exacerbating factors: nothing Context: other Associated symptoms: Reports palpitations; Deny abdominal pain, diaphoresis, dyspnea, fever(s), leg edema, nausea or vomiting Review of Systems Const: Denies: fever(s) or diaphoresis Eyes: Reports: change in vision (mild, resolved now. ) Card: Reports: chest pain and palpitations; Denies: edema Resp: Denies: dyspnea GI: Denies: abdominal pain, nausea or vomiting Neuro: Reports: headache(s) PFSH ED PFSH: Medical History Dyslipidemia Hypertension Smoker Surgical History History of arthroscopic surgery of shoulder right 2013 History of surgery on left wrist cyst removed Family History Mother Cancer Hypertension Grandmother Diabetes Social History Smoking and tobacco status: never smoked Second hand smoke exposure: No Smoking risk assessment/counseling performed?: Yes Alcohol intake: never Desire information about alcohol rehabilitation?: No Counseling given: No Desire information about substance/drug rehabilitation?: No Counseling given: No Adopted: No Caregiver/support person: No Lives independently: Yes Household members: significant other Housing: Manufactured/Mobile home Marital status: Number of children: 2 Highest education level completed: Some College, No Degree service: No Current occupational status: unemployed Pets and animals: No History of recent travel: No Physical Exam Const: COMMON NORMALS: no acute distress GENERAL APPEARANCE: cooperative and anxious; not ill appearing HENMT: COMMON NORMALS: atraumatic and Normal external nose present HEAD & S CALP: atraumatic FACE & SINUS: normal facial exam NOSE: Normal external nose present and Normal nares present Eye: COMMON NORMALS: Equal, round and reactive pupils present and EOMs intact bilaterally PUPIL: Yes Equal, round and reactive pupils present Neck/C-Spine: GENERAL: Yes trachea midline Chest: CHEST: Yes tenderness Resp: COMMON NORMALS: normal respiratory effort, No use of accessory muscles and clear to auscultation bilaterally AUSCULTATION: clear to auscultation bilaterally Cardio: COMMON NORMALS: regular rate and regular rhythm RATE: regular rate RHYTHM: regular rhythm GI: COMMON NORMALS: Normal to inspection, nondistended, normoactive bowel sounds present Extremity: COMMON NORMALS: no pedal edema Neuro: SOCO COMA SCALE: document GCS findings Soco coma scale eye openin g: Spontaneous Allen coma scale verbal response: Orientated Allen coma scale motor response: Obey commands Soco coma scale total score: 15 Psych: COMMON NORMALS: mental status grossly normal Skin: COMMON NORMALS: no rashes or lesions noted GENERAL SKIN EXAM: no rashes or lesions noted Course Vital Signs: Vital signs: Vital Signs Temperature 97.9 F 03/21/22 19:15 Pulse Rate 85 03/21/22 19:59 Respiratory Rate 16 03/21/22 19:59 Blood Pressure 158/90 03/21/22 20:41 Pulse Oximetry 98 03/21/22 20:41 Oxygen Delivery Me thod 03/21/22 20:41 MDM - Chest Pain Medical Decision Making Blood pressure now 158/90. Heart rate is 82. Sats 93% on room air. Respirations 16. He is more relaxed. Morphine and Versed were not given, due to the patient having to drive. Discomfort is gone. Headache is improved.. His EKG is normal, with a normal sinus rhythm, normal axis, and no acute ST changes. Rate is 85. His troponin is 6. With pain for 2 to 3 days, would expect his troponin to be elevated by now. His BMP is normal. Hemoglobin 15. Other labs are not remarkable. He will be allowed discharge home. We will set him up for an outpatient stress. Lab Data : 03/21/22 19:45 10/09/22 19:45 Radiology Impressions Chest X-Ray 03/21/22 19:30 IMPRESSION: 1. No acute cardiopulmonary process. 2. Incidental/nonacute findings are listed in the report. Laboratory Results WBC 5.8 10^3/uL (4.0-10.0) 03/21/22 19:45 RBC 4.98 10^6/uL (4.1-5.3) 03/21/22 19:45 Hgb 15.3 g/dL (11.7-16.6) 03/21/22 19:45 Hct 47.5 % (42.0-52.0) 03/21/22 19:45 MCV 95.4 fl (80-94) H 03/21/22 19:45 MCH 30.7 pg (28.0-34.0) 03/21/22 19:45 MCHC 32.2 g/dL (30.0-36.0) 03/21/22 19:45 RDW 13.5 % (12.1-15.1) 03/21/22 19:45 Plt Count 120 10^3/cmm (130-400) L 03/21/22 19:45 MPV 11.5 fL (7.4-10.4) H 03/21/22 19:45 Neut % (Auto) 56.1 % 03/21/22 19:45 Lymph % (Auto) 27.8 % 03/21/22 19:45 [place] % (Auto) 9.4 % 03/21/22 19:45 Eos % (Auto) 5.8 % 03/21/22 19:45 Baso % (Auto) 0.7 % 03/21/22 19:45 Neut # (Auto) 3.27 10^3/uL (1.8-7.7) 03/21/22 19:45 Lymph # (Auto) 1.6 10^3/uL (0.8-4.8) 03/21/22 19:45 [place] # (Auto) 0.6 10^3/uL (0.2-0.9) 03/21/22 19:45 Eos # (Auto) 0.3 10^3/uL (0.0-0.8) 03/21/22 19:45 Baso # (Auto) 0.0 10^3/uL (0.0-0.1) 03/21/22 19:45 Nucleated RBC % (auto) 0 % 03/21/22 19:45 Nucleated RBCs # 0.0 /100WBC 03/21/22 19:45 Sodium 142 mmol/L (136-145) 03/21/22 19:45 Potassium 4.1 mmol/L (3.5-5.1) 03/21/22 19:45 Chloride 106 mmol/L (98-107) 03/21/22 19:45 Carbon Dioxide 25 mmol/L (22-29) 03/21/22 19:45 Anion Gap 15.1 (5-19) 03/21/22 19:45 BUN 20 mg/dL (6-20) 03/21/22 19:45 Creatinine 1.1 mg/dL (0.7-1.2) 03/21/22 19:45 GFR Calculation 70.6 mL/min (90-130) L 03/21/22 19:45 Glucose 93 mg/dL (65-115) 03/21/22 19:45 Calculated Osmolality 296 mOsm/kg (285-295) H 03/21/22 19:45 Calcium 9.5 mg/dL (8.5-10.5) 03/21/22 19:45 Total Bilirubin 0.2 mg/dL (0.15-1.2) 03/21/22 19:45 AST 11 U/L (0-40) 03/21/22 19:45 ALT 10 U/L (0-41) 03/21/22 19:45 Alkaline Phosphatase 81 U/L (40-130) 03/21/22 19:45 Creatine Kinase 71 U/L (39-308) 03/21/22 19:45 Troponin T Baseline 6 ng/L (0-15) 03/21/22 19:45 NT-Pro-B Natriuret Pep 30 pg/mL (0-125) 03/21/22 19:45 Total Protein 7.1 g/dL (6.6-8.7) 03/21/22 19:45 Albumin 3.9 g/dL (3.5-5.2) 03/21/22 19:45 Globulin 3.2 g/dL (1.3-4.6) 03/21/22 19:45 Discharge Plan Discharge Patient Disposition: Home Clinical Impression: Chest pain, Hypertension Condition: Stable Prescriptions: No Action aspirin [Adult Low Dose Aspirin] 81 mg tablet,delayed release (DR/EC) 81 mg PO DAILY triamcinolone acetonide 0.1 % cream 1 applic topical BID Qty: 30 1RF Krill Oil ([place] 3 and 6) 1000-130(40-80) mg Capsule 1 cap PO DAILY lisinopril 40 mg tablet 40 mg PO DAILY nitroglycerin 0.4 mg tablet, sublingual 0.4 mg sublingual Q5M PRN (Reason: chest pain) Qty: 60 0RF Rx Instructions: do not exceed 3 doses per episode Discharge Orders: Discharge ED (Routine); Ordered 03/21/22 Ordered By: Michael Donohue Referrals: Winsome Carlson MD [Primary Care Provider] - 1-3 days Patient Instructions: Chest Pain (ED), Hypertension (ED) Activity Restrictions/Additional Instructions: Check your blood pressure twice daily. If your blood pressure is significantly elevated, and you are symptomatic, you may try your nitroglycerin to bring the blood pressure down. Return for any repeated episodes of chest discomfort, shortness of breath, or any other concerning symptoms. An outpatient stress test will be set up for you. You should get a call from case management this week regarding this. Results should go to your PCP. Report your blood pressure numbers to your doctor in follow-up this week. Coding Level of Care Code ED Director Reactor Projects for Efra Fwarturo Exam Comprehensive
[2022-03-21 20:25] LABS: NT Pro B Type Natriuretic Pept 30 pg/mL (0-125)
[2022-03-21 20:39] LABS: Alanine Aminotransferase 10 U/L (0-41); Albumin Level 3.9 g/dL (3.5-5.2); Alkaline Phosphatase 81 U/L (40-130); Anion Gap 15.1 (5-19); Aspartate Amino Transferase 11 U/L (0-40); Blood Urea Nitrogen 20 mg/dL (6-20); Calcium 9.5 mg/dL (8.5-10.5); Carbon Dioxide 25 mmol/L (22-29); Chloride 106 mmol/L (98-107); Creatine Phosphokinase 71 U/L (39-308); Globulin 3.2 g/dL (1.3-4.6); Glomerular Filtration Rate 70.6 mL/min (90-130); Glucose 93 mg/dL (65-115); Osmolality Calculated 296 mOsm/kg (285-295); Potassium 4.1 mmol/L (3.5-5.1); Sodium 142 mmol/L (136-145); Total Bilirubin 0.2 mg/dL (0.15-1.2); Total Protein 7.1 g/dL (6.6-8.7)
[2022-03-21 20:41] VITALS: BP 158/90; O2SAT 98
--- NOTE | 2022-03-23 12:27 | DCPLANNER ---
Addendum entered by Rhonda Lorenzana 08/31/22 09:02: Patient had a stress test scheduled - patient did attend appointment Original Note: stakeholder manager had message to schedule an outpatient stress test for patient. stakeholder manager called patient to confirm that patient wanted the stress test ordered and to confirm who patient sees for primary care. Patient stated that he did want the test ordered and that patient sees Dr. Carlson at [facility] for primary care. stakeholder manager faxed signed order to centralized scheduling, who will call patient with appointment information. stakeholder manager sent notification to the office of Dr. Carlson, informing primary care physician that the ER physician ordered stress test for patient.
== END 2022-03-21 21:11 | disposition home or self-care (01) ==
PROVIDERS: Emergency Provider Emergency Medicine; PCP Family Medicine
DX: R07.9 Chest pain, unspecified (principal); I10 Essential (primary) hypertension; E78.5 Hyperlipidemia, unspecified; Z79.82 Long term (current) use of aspirin
CPT/HCPCS: 71045; 80053; 82550; 83880; 84484; 85025; 93005; 96374; 99285; J2405

== ENCOUNTER 2022-03-24 16:34 | Emergency (ER) | payer SELFPAY ==
[2022-03-24 17:05] VITALS: BP 122/91; PULSE 84; RESP 18; TEMP 36.8; O2SAT 93; BMI 37.3
[2022-03-24 17:16] VITALS: BP 137/85; PULSE 82; RESP 18; O2SAT 94
--- NOTE | 2022-03-24 17:17 | ED_ITS ---
HPI - General Adult General: Chief complaint: General Medical Stated complaint: hypertension Time Seen by Provider: 03/24/22 17:17 History of Present Illness: 51-year-old male patient comes in today for complaints of elevated blood pressure. Patient also reported some left shoulder pain and radiating to neck along with a headache. Patient was given clonidine at the physician's office but it did not improve his blood pressure and he was referred to the ER. On arrival to the ER patient's blood pressures returned to normal. Patient reports improvement in his symptoms. Associated symptoms: Reports headache(s); Deny chest pain or dyspnea Review of Systems Const: Denies: fever(s) Card: Denies: chest pain Resp: Denies: dyspnea Musc: Reports: neck pain Neuro: Reports: headache(s) PFSH ED PFSH: Medical History Dyslipidemia Hypertension Smoker Surgical History History of arthroscopic surgery of shoulder right 2014 History of surgery on left wrist cyst removed Family History Mother Cancer Hypertension Grandmother Diabetes Social History Smoking and tobacco status: never smoked Second hand smoke exposure: No Smoking risk assessment/counseling performed?: Yes Alcohol intake: never Desire information about alcohol rehabilitation?: No Counseling given: No Desire information about substance/drug rehabilitation?: No Counseling given: No Adopted: No Caregiver/support person: No Lives independently: Yes Household members: significant other Housing: Manufactured/Mobile home Marital status: Number of children: 2 Highest education level completed: Some College, No Degree service: No Current occupational status: unemployed Pets and animals: No History of recent travel: No Physical Exam Const: COMMON NORMALS: alert HENMT: COMMON NORMALS: normocephalic HEAD & SCALP: normocephalic Eye: GENERAL EYE: appearance normal, both eyes and all related structures Neck/C-Spine: COMMON NORMALS: full ROM Resp: COMMON NORMALS: normal respiratory effort and clear to auscultation bilaterally AUSCULTATION: clear to auscultation bilaterally Cardio: COMMON NORMALS: regular rate and regular rhythm RATE: regular rate RHYTHM: regular rhythm Extremity: COMMON NORMALS: no pedal edema Neuro: SENSORIUM/ORIENTATION: Yes alert Skin: COMMON NORMALS: turgor normal GENERAL SKIN EXAM: turgor normal Course Vital Signs: Vital signs: Vital Signs Temperature 98.3 F 03/24/22 17:05 Pulse Rate 82 03/24/22 17:16 Respiratory Rate 18 03/24/22 17:16 Blood Pressure 137/85 03/24/22 17:16 Pulse Oximetry 94 03/24/22 17:16 Oxygen Delivery Me thod 03/24/22 17:16 MDM - General Adult Medical Decision Making Patient was sent to the emergency room from his primary care for concerns of a headache, left side shoulder pain, and elevated blood pressure. On arrival to the ER patient was normotensive. Respirations were even lungs were clear to auscultation. Patient was reporting improvement in headache and neck pain. Differential diagnosis includes hypertensive emergency, ACS, stroke syndrome, anxiety. CBC and CMP were unremarkable. Troponin initial was 6. EKG shows no ST elevation or signs of STEMI. Chest x-ray shows mild cardiomegaly but otherwise normal. CT of the head noted no acute intracranial hemorrhage mass- effect or signs. Patient has significant improvement. Reviewed exam with patient with recommendations for starting blood pressure medication and following up with primary care. Patient was started on blood pressure medication today at the primary care office and we will start that regimen and follow-up. Lab Data : 03/24/22 17:40 03/24/22 17:40 Radiology Impressions Chest X-Ray 03/24/22 17:23 IMPRESSION: Cardiomegaly, negative for infiltrate. Head CT 03/24/22 17:23 IMPRESSION: Negative for intracranial hemorrhage or mass effect Laboratory Results WBC 6.4 10^3/uL (4.0-10.0) 03/24/22 17:40 RBC 4.87 10^6/uL (4.1-5.3) 03/24/22 17:40 Hgb 15.0 g/dL (11.7-16.6) 03/24/22 17:40 Hct 45.7 % (42.0-52.0) 03/24/22 17:40 MCV 93.8 fl (80-94) 03/24/22 17:40 MCH 30.8 pg (28.0-34.0) 03/24/22 17:40 MCHC 32.8 g/dL (30.0-36.0) 03/24/22 17:40 RDW 13.2 % (12.1-15.1) 03/24/22 17:40 Plt Count 118 10^3/cmm (130-400) L 03/24/22 17:40 MPV 11.0 fL (7.4-10.4) H 03/24/22 17:40 Neut % (Auto) 60.1 % 03/24/22 17:40 Lymph % (Auto) 21.7 % 03/24/22 17:40 [place] % (Auto) 10.6 % 03/24/22 17:40 Eos % (Auto) 6.8 % 03/24/22 17:40 Baso % (Auto) 0.5 % 03/24/22 17:40 Neut # (Auto) 3.87 10^3/uL (1.8-7.7) 03/24/22 17:40 Lymph # (Auto) 1.4 10^3/uL (0.8-4.8) 03/24/22 17:40 [place] # (Auto) 0.7 10^3/uL (0.2-0.9) 03/24/22 17:40 Eos # (Auto) 0.4 10^3/uL (0.0-0.8) 03/24/22 17:40 Baso # (Auto) 0.0 10^3/uL (0.0-0.1) 03/24/22 17:40 Nucleated RBC % (auto) 0 % 03/24/22 17:40 Nucleated RBCs # 0.0 /100WBC 03/24/22 17:40 Sodium 138 mmol/L (136-145) 03/24/22 17:40 Potassium 4.0 mmol/L (3.5-5.1) 03/24/22 17:40 Chloride 102 mmol/L (98-107) 03/24/22 17:40 Carbon Dioxide 26 mmol/L (22-29) 03/24/22 17:40 Anion Gap 14.0 (5-19) 03/24/22 17:40 BUN 21 mg/dL (6-20) H 03/24/22 17:40 Creatinine 0.9 mg/dL (0.7-1.2) 03/24/22 17:40 GFR Calculation 89.0 mL/min (90-130) L 03/24/22 17:40 Glucose 95 mg/dL (65-115) 03/24/22 17:40 Calculated Osmolality 289 mOsm/kg (285-295) 03/24/22 17:40 Calcium 9.4 mg/dL (8.5-10.5) 03/24/22 17:40 Total Bilirubin 0.2 mg/dL (0.15-1.2) 03/24/22 17:40 AST 12 U/L (0-40) 03/24/22 17:40 ALT 11 U/L (0-41) 03/24/22 17:40 Alkaline Phosphatase 76 U/L (40-130) 03/24/22 17:40 Troponin T Baseline 6 ng/L (0-15) 03/24/22 17:40 NT-Pro-B Natriuret Pep 17 pg/mL (0-125) 03/24/22 17:40 Total Protein 7.2 g/dL (6.6-8.7) 03/24/22 17:40 Albumin 3.9 g/dL (3.5-5.2) 03/24/22 17:40 Globulin 3.3 g/dL (1.3-4.6) 03/24/22 17:40 EKG Data EKG 1: EKG interpretation date: 03/24/22 EKG interpretation time: 21:32 Prior EKG tracings: not available for review Interpretation: EKG shows a 81 bpm regular rhythm sinus. No ectopy or ST elevation is noted. No prior exam was available for comparison. Computer generated interpretation: Chest X-Ray 03/24/22 17:23 IMPRESSION: Cardiomegaly, negative for infiltrate. Head CT 03/24/22 17:23 IMPRESSION: Negative for intracranial hemorrhage or mass effect Discharge Plan Discharge Patient Disposition: Home Clinical Impression: Hypertension Condition: Stable Prescriptions: New clonidine HCl 0.1 mg tablet 0.1 mg PO BID Qty: 20 0RF No Action aspirin [Adult Low Dose Aspirin] 81 mg tablet,delayed release (DR/EC) 81 mg PO DAILY amlodipine 5 mg tablet 5 mg PO DAILY Qty: 30 3RF valsartan [Diovan] 160 mg tablet 160 mg PO DAILY Qty: 30 1RF triamcinolone acetonide 0.1 % cream 1 applic topical BID Qty: 30 1RF Krill Oil (Willis 3 and 6) 1000-130(40-80) mg Capsule 1 cap PO DAILY nitroglycerin 0.4 mg tablet, sublingual 0.4 mg sublingual Q5M PRN (Reason: chest pain) Qty: 60 0RF Rx Instructions: do not exceed 3 doses per episode Discharge Orders: Discharge ED (Routine); Ordered 03/24/22 Ordered By: Pradeep Mack Referrals: Winsome Carlson MD [Primary Care Provider] - Discharge Diet: Usual diet Discharge Activity: Increase activity as tolerated Patient Instructions: Hypertension (ED) Activity Restrictions/Additional Instructions: Use clonidine as needed for elevated blood pressure. Drink plenty of water. Continue with routine medications. Follow-up with primary care in 3 to 5 days for recheck. Return to ED for new concerns. Coding Level of Care Code ED Vitreo Retinal Surgeon for Peggyg Fwd Exam Comprehensive
--- NOTE | 2022-03-24 17:23 | XRR_ITS ---
PROCEDURE INFORMATION: Exam: XR Chest Exam date and time: 03/24/2022 5:40 PM Age: 51 years old Clinical indication: Other: Chest pain; Additional info: Hypertension, chest pain, headache TECHNIQUE: Imaging protocol: Radiologic exam of the chest. Views: 1 view. COMPARISON: CR (CHEST, ) 03/21/2022 7:37 PM FINDINGS: Lungs: Unremarkable. No consolidation. Pleural spaces: Unremarkable. No pleural effusion. No pneumothorax. Heart/Mediastinum: Cardiomegaly. Bones/joints: Unremarkable. XR/XR chest 1V portable [id number] IMPRESSION: Cardiomegaly, negative for infiltrate.
--- NOTE | 2022-03-24 17:23 | CTR_ITS ---
PROCEDURE INFORMATION: Exam: CT Head Without Contrast Exam date and time: 03/24/2022 6:48 PM Age: 51 years old Clinical indication: Pain; Headache; Additional info: Headache, hypertension TECHNIQUE: Imaging protocol: Computed tomography of the head without contrast. Radiation optimization: All CT scans at this facility use at least one of these dose optimization techniques: automated exposure control; mA and/or kV adjustment per patient size (includes targeted exams where dose is matched to clinical indication); or iterative reconstruction. COMPARISON: CR XR cervical spine 3V* [id number] 02/20/2020 3:36 PM RADIATION DOSE METRICS: Total DLP (mGy-cm): 1214.08 FINDINGS: Brain: Normal. No hemorrhage. Unremarkable white matter. No mass effect. Cerebral ventricles: No ventriculomegaly. Paranasal sinuses: Right maxillary sinus mucous retention cyst versus polyp partially visualized. Mastoid air cells: Visualized mastoid air cells are well aerated. Bones/joints: Unremarkable. No acute fracture. Soft tissues: Unremarkable. CT/CT head wo con* [id number] IMPRESSION: Negative for intracranial hemorrhage or mass effect
--- NOTE | 2022-03-24 17:24 | ECG_ITS ---
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 Measurements Intervals [place] Rate: 81 P: 12 HI: 165 QRS: 12 QRSD: 93 T: 38 QT: 344 QTc: 402 Interpretive Statements SINUS RHYTHM Compared to ECG 03/21/2022 19:32:11 No significant changes Electronically Signed On 03-25-2022 12:54:16 CDT by Nelly Mcghee M.D. [id number] f
[2022-03-24 17:51] LABS: Basophils % 0.5 %; Eosinophils # 0.4 10^3/uL (0.0-0.8); Eosinophils % 6.8 %; Hematocrit 45.7 % (42.0-52.0); Lymphocytes # 1.4 10^3/uL (0.8-4.8); Lymphocytes % 21.7 %; Mean Corpuscular HGB Conc 32.8 g/dL (30.0-36.0); Mean Corpuscular Hemoglobin 30.8 pg (28.0-34.0); Mean Corpuscular Volume 93.8 fl (80-94); Monocytes # 0.7 10^3/uL (0.2-0.9); Monocytes % 10.6 %; Neutrophils # 3.87 10^3/uL (1.8-7.7); Neutrophils % 60.1 %; Nucleated Red Blood Cells % 0 %; Platelet Count 118 10^3/cmm (130-400); Red Blood Count 4.87 10^6/uL (4.1-5.3); Red Cell Distribution Width 13.2 % (12.1-15.1); White Blood Count 6.4 10^3/uL (4.0-10.0)
[2022-03-24 18:21] LABS: Troponin(5th) Baseline 6 ng/L (0-15)
[2022-03-24 18:29] LABS: Alanine Aminotransferase 11 U/L (0-41); Albumin Level 3.9 g/dL (3.5-5.2); Alkaline Phosphatase 76 U/L (40-130); Aspartate Amino Transferase 12 U/L (0-40); Blood Urea Nitrogen 21 mg/dL (6-20); Calcium 9.4 mg/dL (8.5-10.5); Carbon Dioxide 26 mmol/L (22-29); Chloride 102 mmol/L (98-107); Globulin 3.3 g/dL (1.3-4.6); Glucose 95 mg/dL (65-115); NT Pro B Type Natriuretic Pept 17 pg/mL (0-125); Osmolality Calculated 289 mOsm/kg (285-295); Sodium 138 mmol/L (136-145); Total Bilirubin 0.2 mg/dL (0.15-1.2); Total Protein 7.2 g/dL (6.6-8.7)
== END 2022-03-24 19:50 | disposition home or self-care (01) ==
PROVIDERS: Emergency Provider Nurse Practitioner Family; PCP Family Medicine
DX: I10 Essential (primary) hypertension (principal); Z79.82 Long term (current) use of aspirin; E78.5 Hyperlipidemia, unspecified
CPT/HCPCS: 70450; 71045; 80053; 83880; 84484; 85025; 93005; 99285

== ENCOUNTER 2022-05-18 08:13 | Inpatient (IN) | payer MEDICAID, SELFPAY ==
[2022-05-18] VITALS (14 sets, daily range): BP systolic 129–161; BP diastolic 72–107; PULSE 75–106; RESP 12–18; TEMP 36.7; O2SAT 91–98
--- NOTE | 2022-05-18 08:22 | XR_ITS ---
WS: [id number] Portable AP upright chest, 05/18/2022 Clinical Data: Chest pain Comparison: Portable chest, 03/24/2022 Findings: No nodules, masses or effusions are seen. The heart is slightly enlarged. The pulmonary vas cularity is not increased. No pneumonia or pneumothorax is seen. Monitor leads are on the chest wall. XR/XR chest 1V portable [id number] Impression: Negative chest.
--- NOTE | 2022-05-18 08:29 | ECG_ITS ---
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 Measurements Intervals [place] Rate: 88 P: 31 LA: 172 QRS: 28 QRSD: 108 T: 48 QT: 349 QTc: 424 Interpretive Statements SINUS RHYTHM Compared to ECG 03/24/2022 17:01:34 No significant changes Electronically Signed On 05-18-2022 12:55:15 STONE DECORATOR by Nelly Mcghee M.D. [id number]
--- NOTE | 2022-05-18 08:36 | W.ED.CHESTPA ---
HPI - Chest Pain General: Chief Complaint: Chest Pain Stated Complaint: chest pain Time Seen by Provider: 05/18/22 08:22 Source: patient Mode of arrival: ambulatory History of Present Illness: 51-year-old male presents emergency room complaining of chest pain that he has had off and on for the last several months. He has been seen for twice in the emergency room is not had any stress testing done. Said chest pain that began yesterday with activity usually relieved with rest he has had some shortness of breath with it as well as some headache. When he arrived here he complained of pressure and a sensation of around 3 out of 10 while at rest it did improve if we give him nitroglycerin topically. He is brought. Not previously had any cardiac evaluation. He has been taking a baby aspirin daily which had been started on previously because of episodes of chest pain. Patient has a history of hypertension hyperlipidemia and tobacco use. MD complaint: chest pain Timing of current episode: episodic Prior episodes: Yes Onset: during exertion Pain radiation: back Severity: moderate Quality: tightness, aching and heaviness Relieving factors: nitroglycerin and rest Exacerbating factors: exertion Associated symptoms: Deny abdominal pain, diaphoresis, dyspnea, fever(s), leg edema, nausea, palpitations, sense of impending doom, syncope or vomiting Treatment prior to arrival: nitroglycerin Review of Systems Const: Denies: fever(s), chills, fatigue, malaise or diaphoresis ENMT: Denies: throat pain, ear or mastoid pain, nasal discharge or nasal congestion Card: Reports: chest pain; Denies: palpitations, irregular heart rhythm, edema or syncope Resp: Denies: dyspnea GI: Denies: abdominal pain, nausea or vomiting : Denies: flank pain, dysuria, urinary frequency or urinary urgency Skin/Breast: Denies: rash or pruritus PFSH ED PFSH: Medical History Dyslipidemia Hypertension Smoker Surgical History History of arthroscopic surgery of shoulder right 2013 History of surgery on left wrist cyst removed Family History Mother Cancer Hypertension Grandmother Diabetes Social History Smoking and tobacco status: never smoked Second hand smoke exposure: No Smoking risk assessment/counseling performed?: Yes Alcohol intake: never Desire information about alcohol rehabilitation?: No Counseling given: No Desire information about substance/drug rehabilitation?: No Counseling given: No Adopted: No Caregiver/support person: No Lives independently: Yes Household members: significant other Housing: Manufactured/Mobile home Marital status: Number of children: 2 Highest education level completed: Some College, No Degree service: No Current occupational status: unemployed Pets and animals: No History of recent travel: No Physical Exam Const: GENERAL APPEARANCE: cooperative and comfortable ORIENTATION/CONSCIOUSNESS: Yes awake, Yes oriented to person, Yes oriented to place and Yes oriented to time HENMT: COMMON NORMALS: normocephalic, atraumatic and hearing grossly normal bilaterally HEAD & SCALP: normocephalic and atraumatic Resp: COMMON NORMALS: normal respiratory effort, No retractions, No use of accessory muscles and clear to auscultation bilaterally AUSCULTATION: clear to auscultation bilaterally Cardio: COMMON NORMALS: regular rate, regular rhythm and No murmurs present (Cardio) RATE: regular rate RHYTHM: regular rhythm GI: COMMON NORMALS: Soft to palpation and No hepatosplenomegaly present AUSCULTATION: Yes normoactive bowel sounds PALPATION: Yes Soft to palpation, No Tenderness to palpation present (GI), No Guarding due to palpation present (GI) and Yes No hepatosplenomegaly present Extremity: COMMON NORMALS: normal to inspection, capillary refill normal, no clubbing, cyanosis or edema, no calf tenderness and no pedal edema Neuro: SENSORIUM/ORIENTATION: Yes oriented to person, Yes oriented to place and Yes oriented to time Skin: COMMON NORMALS: no rashes or lesions noted GENERAL SKIN EXAM: no rashes or lesions noted Course Vital Signs: Vital signs: Vital Signs Temperature 98.1 F 05/18/22 08:28 Pulse Rate 78 05/18/22 11:42 Respiratory Rate 18 05/18/22 08:28 Blood Pressure 147/92 05/18/22 11:42 Pulse Oximetry 93 05/18/22 11:42 Oxygen Delivery Me thod 05/18/22 11:42 MDM - Chest Pain Medical Decision Making Patient sounds like he is having progressively worsening anginal-like pain. Worse activity better with rest since also relieved with nitro he has multiple risk factors EKG does not show any acute his troponins initially was 6 his second troponin was also 6. Given his risk factors and escalating degree of symptoms the last several months will admit for early cardiac stress testing. He did get relief improvement of his discomfort with the application of topical nitroglycerin. Medical Records I reviewed the patient's medical records. Lab Data I reviewed the patient's lab results. 05/18/22 08:35 05/18/22 08:35 Radiology Impressions Chest X-Ray 05/18/22 08:22 Impression: Negative chest. Laboratory Results WBC 5.9 10^3/uL (4.0-10.0) 05/18/22 08:35 RBC 5.24 10^6/uL (4.1-5.3) 05/18/22 08:35 Hgb 16.1 g/dL (11.7-16.6) 05/18/22 08:35 Hct 49.5 % (42.0-52.0) 05/18/22 08:35 MCV 94.5 fl (80-94) H 05/18/22 08:35 MCH 30.7 pg (28.0-34.0) 05/18/22 08:35 MCHC 32.5 g/dL (30.0-36.0) 05/18/22 08:35 RDW 13.1 % (12.1-15.1) 05/18/22 08:35 Plt Count 141 10^3/cmm (130-400) 05/18/22 08:35 MPV 10.8 fL (7.4-10.4) H 05/18/22 08:35 Neut % (Auto) 60.0 % 05/18/22 08:35 Lymph % (Auto) 24.7 % 05/18/22 08:35 [place] % (Auto) 8.3 % 05/18/22 08:35 Eos % (Auto) 6.4 % 05/18/22 08:35 Baso % (Auto) 0.3 % 05/18/22 08:35 Neut # (Auto) 3.55 10^3/uL (1.8-7.7) 05/18/22 08:35 Lymph # (Auto) 1.5 10^3/uL (0.8-4.8) 05/18/22 08:35 [place] # (Auto) 0.5 10^3/uL (0.2-0.9) 05/18/22 08:35 Eos # (Auto) 0.4 10^3/uL (0.0-0.8) 05/18/22 08:35 Baso # (Auto) 0.0 10^3/uL (0.0-0.1) 05/18/22 08:35 Nucleated RBC % (auto) 0 % 05/18/22 08:35 Nucleated RBCs # 0.0 /100WBC 05/18/22 08:35 Sodium 139 mmol/L (136-145) 05/18/22 08:35 Potassium 4.2 mmol/L (3.5-5.1) 05/18/22 08:35 Chloride 102 mmol/L (98-107) 05/18/22 08:35 Carbon Dioxide 27 mmol/L (22-29) 05/18/22 08:35 Anion Gap 14.2 (5-19) 05/18/22 08:35 BUN 18 mg/dL (6-20) 05/18/22 08:35 Creatinine 1.0 mg/dL (0.7-1.2) 05/18/22 08:35 GFR Calculation 78.8 mL/min (90-130) L 05/18/22 08:35 Glucose 129 mg/dL (65-115) H 05/18/22 08:35 Estimat Average Glucose 114 05/18/22 08:25 Hemoglobin A1c 5.6 % (4.0-6.0) 05/18/22 08:25 Calculated Osmolality 292 mOsm/kg (285-295) 05/18/22 08:35 Calcium 9.4 mg/dL (8.5-10.5) 05/18/22 08:35 Total Bilirubin 0.3 mg/dL (0.15-1.2) 05/18/22 08:35 Direct Bilirubin 0.20 mg/dL (0.00-0.30) 05/18/22 08:35 AST 16 U/L (0-40) 05/18/22 08:35 ALT 12 U/L (0-41) 05/18/22 08:35 Alkaline Phosphatase 89 U/L (40-130) 05/18/22 08:35 Troponin T Baseline 6 ng/L (0-15) 05/18/22 08:35 Troponin T 120 Minute 6.00 ng/L (0-15) 05/18/22 10:38 Delta Troponin T 0 ABS# (0-10) 05/18/22 10:38 Total Protein 7.2 g/dL (6.6-8.7) 05/18/22 08:35 Albumin 4.1 g/dL (3.5-5.2) 05/18/22 08:35 Globulin 3.1 g/dL (1.3-4.6) 05/18/22 08:35 TSH 1.15 uIU/mL (0.27-4.20) 05/18/22 08:35 Discharge Plan Discharge Patient Disposition: Admitted As Inpatient Admit Provider: Eleno Monk Clinical Impression: Angina pectoris, Essential hypertension, Smoker, Dyslipidemia Condition: Stable Coding Level of Care Code ED Systems Librarian for Peggyg Fwd Exam Detailed
[2022-05-18] MEDS: aspirin 81 mg Chew Tablet 324 MG PO (08:43)
[2022-05-18] MEDS: nitroglycerin 1 gm/inch oint Pkt 1 INCH TOPICAL (08:47)
[2022-05-18 08:50] LABS: Basophils % 0.3 %; Eosinophils # 0.4 10^3/uL (0.0-0.8); Eosinophils % 6.4 %; Hematocrit 49.5 % (42.0-52.0); Hemoglobin 16.1 g/dL (11.7-16.6); Lymphocytes # 1.5 10^3/uL (0.8-4.8); Lymphocytes % 24.7 %; Mean Corpuscular HGB Conc 32.5 g/dL (30.0-36.0); Mean Corpuscular Hemoglobin 30.7 pg (28.0-34.0); Mean Corpuscular Volume 94.5 fl (80-94); Mean Platelet Volume 10.8 fL (7.4-10.4); Monocytes # 0.5 10^3/uL (0.2-0.9); Monocytes % 8.3 %; Neutrophils # 3.55 10^3/uL (1.8-7.7); Nucleated Red Blood Cells % 0 %; Platelet Count 141 10^3/cmm (130-400); Red Blood Count 5.24 10^6/uL (4.1-5.3); Red Cell Distribution Width 13.1 % (12.1-15.1); White Blood Count 5.9 10^3/uL (4.0-10.0)
[2022-05-18 09:08] LABS: Anion Gap 14.2 (5-19); Blood Urea Nitrogen 18 mg/dL (6-20); Calcium 9.4 mg/dL (8.5-10.5); Carbon Dioxide 27 mmol/L (22-29); Chloride 102 mmol/L (98-107); Creatinine Clr Calc Pharmacy 119.2293; Glomerular Filtration Rate 78.8 mL/min (90-130); Glucose 129 mg/dL (65-115); Osmolality Calculated 292 mOsm/kg (285-295); Potassium 4.2 mmol/L (3.5-5.1); Sodium 139 mmol/L (136-145)
[2022-05-18 09:09] LABS: Troponin(5th) Baseline 6 ng/L (0-15)
--- NOTE | 2022-05-18 10:46 | ECG_ITS ---
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 Measurements Intervals [place] Rate: 77 P: 29 IA: 176 QRS: 25 QRSD: 104 T: 46 QT: 366 QTc: 417 Interpretive Statements SINUS RHYTHM Compared to ECG 05/18/2022 08:29:11 No significant changes Electronically Signed On 05-18-2022 12:58:34 STOCKROOM SUPERVISOR by Nelly Mcghee M.D. [id number]
[2022-05-18 11:08] LABS: Troponin 5 2HR Delta 0 ABS# (0-10)
--- NOTE | 2022-05-18 13:09 | P.HP_ITS ---
Providers/Chief Complaint Admitting Physician: Eleno Monk MD Primary Care Provider: Winsome Carlson MD Chief Complaint: chest pain History of Present Illness Raul Morales is a 51 year old male who presents to the emergency department complaining of chest discomfort. He reports he has had at least 3 different episodes. His first episode was about a week ago, at work. It was chest pressure, occurring with exertion, and going away with rest. The next episode was yesterday. This episode was substernal lower chest discomfort, with radiation to his neck and jaw, occurring with exertion. He had some sublingual nitroglycerin given by the emergency department on a previous ER visit where blood pressure was markedly high. He reports he took this, and chest discomfort went away. Today, he had recurrence of his discomfort at work with exertion so he came to the emergency department, worried he might have a myocardial infarction on the job. He reports no history of heart disease in the past. He states he had a angiogram about 9 years ago for some discomfort at [place] and did not have significant disease at that time. He reports he does smoke, has a family history of heart disease, and is treated for hypertension. Other symptomatology occurring with the chest discomfort with flushing and shortness of breath. He had no nausea. He does report some anxiety at times. He reports he does not have significant heartburn, or stomach symptoms but he does use BC powder twice daily for muscle aches and pains. He has been given an aspirin, and started on some Nitropaste. Review of Systems General: Reports: 10 or more systems reviewed and unremarkable except in HPI and below Const: Denies: fever(s) Eyes: Denies: change in vision ENMT: Denies: throat pain Card: Reports: chest pain Resp: Denies: dyspnea GI: Denies: abdominal pain, nausea, hematochezia or melena : Denies: flank pain Musc: Denies: neck pain Skin/Breast: Denies: rash Neuro: Denies: headache(s) Psych: Reports: anxiety; Denies: depression Endo: Denies: polyuria Raj/Lymph: Denies: easy bruising All/Imm: Denies: urticaria Medications/Allergies Home Medications Medication Instructions Recorded Confirmed Last Taken Type aspirin 81 mg tablet,delayed 81 mg PO DAILY 06/25/19 05/18/22 05/18/22 History release (Adult Low Dose Aspirin) nitroglycerin 0.4 mg sublingual 0.4 mg sublingual Q5M PRN chest 02/05/22 1 07/19/21 05/17/22 Rx tablet pain #60 tabs amlodipine 5 mg tablet 5 mg PO DAILY #30 tabs 03/24/22 05/18/22 05/17/22 Rx valsartan 160 mg tablet (Diovan) 160 mg PO DAILY #30 tabs 03/24/22 05/18/22 05/18/22 Rx furosemide 20 mg tablet 20 mg PO DAILY 30 days #30 tabs 03/25/22 05/18/22 05/18/22 Rx clonidine HCl 0.1 mg tablet 0.1 mg PO BID PRN Hypertension 05/18/22 05/18/22 Unknown History ibuprofen 200 mg capsule 400 mg PO Q6H PRN Pain 05/18/22 05/18/22 Unknown History triamcinolone acetonide 0.1 % 1 applic topical BID PRN Rash 05/18/22 05/18/22 Unknown History topical cream Allergies Allergy/AdvReac Type Severity Reaction Status Date / Time simvastatin Allergy ADR-Muscle Verified 05/18/22 09:03 Pain PFSH Acute PFSH: Medical History Dyslipidemia Hypertension Smoker Surgical History History of arthroscopic surgery of shoulder right 2014 History of surgery on left wrist cyst removed Family History Mother Cancer Hypertension Grandmother Diabetes Social History Smoking and tobacco status: never smoked Second hand smoke exposure: No Smoking risk assessment/counseling performed?: Yes Alcohol intake: never Desire information about alcohol rehabilitation?: No Counseling given: No Desire information about substance/drug rehabilitation?: No Counseling given: No Adopted: No Caregiver/support person: No Lives independently: Yes Household members: significant other Housing: Manufactured/Mobile home Marital status: Number of children: 2 Highest education level completed: Some College, No Degree service: No Current occupational status: unemployed Pets and animals: No History of recent travel: No Vitals/I&O/Wt Last Vital Signs Temp 98.1 F 05/18/22 08:28 Pulse 78 05/18/22 11:42 Resp 18 05/18/22 08:28 BP 147/92 05/18/22 11:42 Pulse Ox 93 05/18/22 11:42 O2 Del Method 05/18/22 11:42 Weight last 48 hrs Weight 124.738 kg Physical Exam Narrative: General exam is a white male, somewhat nervous, reporting his discomfort is essentially gone currently. HEENT: Atraumatic normocephalic. Pupils equally round. Oropharynx clear. Neck is supple no lymphadenopathy or thyromegaly Cardiovascular regular in rhythm without murmur, no S3 or S4 Lungs clear no wheezing or crackles Abdomen is soft nontender with positive bowel sounds. No obvious organomegaly exams deferred Extremities no cyanosis clubbing or edema, cap refill brisk. Skin no rash Neuro no obvious focal deficits. Data 05/18/22 08:35 05/18/22 08:35 Other Labs: EKG is normal sinus rhythm, normal axis, no acute changes Chest x-ray demonstrates cardiomegaly but no infiltrate Blood sugar slightly elevated LFTs checked 2 months ago and normal Troponin 6 with repeat of 6 A&P Assessment and plan (1) Chest pain: Patient with 3 episodes of recurrent chest pain, occurring with exertion, with radiation to arms and jaw. Has relief with nitroglycerin. Troponins, negative EKG nondiagnostic Check echocardiogram Continue nitroglycerin ointment Continue aspirin Check lipid profile, TSH Cardiology consultation (2) Tobacco dependency: Nicotine patch. Discussed with patient. (3) Hypertension: Continue home medications Plan Add Protonix, avoid BC powder Other medical problems as listed in past medical history Full code Lovenox for DVT prophylaxis Attestations Medical Necessity Statement*: Will require less than 2 midnight stay for evaluation and treatment of chest discomfort. Coding Level of Care Code Acute Margarine Churn Operator for Chg Fwd Diagnoses Chest pain R07.9 Tobacco dependency F17.200 Hypertension I10
--- NOTE | 2022-05-18 13:16 | USCV_ITS ---
Raul Morales Age: 51 Gender: M : 1970 Exam Date: 05/18/2022 13:25 Ordering Phys: Eleno Monk MD Technologist: TIERRA [place] [facility] [place]: CHEST PAIN BP: 131 / 90 HR: 76 Rhythm: Sinus Technical Quality: Poor MEASUREMENTS (Male / Female) Normal Values 2D ECHO LV Ejection Fraction MOD 2C 40.2 % LV Ejection Fraction 2C AL 38.5 % LA Diameter 2.8 cm LA Width 3.2 cm LA Height 4.7 cm RA Width 3.8 cm RA Height 3.8 cm Aorta at Sinotubular Diameter 2.9 cm IVC Diameter 1.5 cm M-MODE Aortic Annulus Diameter 3.1 cm LA Ao Ratio MM 0.8 MV E Point Septal Separation 0.7 cm DOPPLER AV Peak Velocity 157.0 cm/s LVOT Peak Velocity 101.0 cm/s MV Peak Velocity 72.0 cm/s MV Area PHT 3.0 cm squared Mitral E to A Ratio 1.1 MV E' Velocity 72.0 cm/s TR Peak Velocity 142.3 cm/s TR Peak Gradient 8.1 mmHg TR Mean Velocity 114.7 cm/s TR Mean Gradient 5.4 mmHg TR Velocity Time Integral 35.8 cm TV Peak E Velocity 46.0 cm/s Right Atrial Pressure 3.0 mmHg Pulmonary Artery Systolic Pressu 11.1 mmHg PV Peak Velocity 124.0 cm/s RV Acceleration Time 0.1 s RV Ejection Time 0.2 s RV AcT/ET 0.4 FINDINGS Left Ventricle Examination is poor without echo contrast. Echo contrast reveals the left ventricular size and function are likely normal. The ejection fraction is probably 55 to 60%. Grade 1 diastolic dysfunction. Right Ventricle Normal right ventricular size and systolic function. Normal right ventricular systolic pressure. Right Atrium Right atrium not well visualized. Left Atrium Normal left atrial size. Mitral Valve Structurally normal mitral valve without significant stenosis or prolapse. There is no mitral regurgitation. Aortic Valve Structurally normal aortic valve without significant sclerosis or stenosis. There is no aortic regurgitation. Tricuspid Valve Tricuspid valve not well visualized. No tricuspid valve regurgitation. Pulmonic Valve Pulmonic valve not well visualized. Pericardium Normal pericardium without effusion. Aorta Normal ascending aorta dimension. IVC Inferior vena cava not visualized. CONCLUSIONS Examination is poor without echo contrast. Echo contrast reveals the left ventricular size and function are likely normal. The ejection fraction is probably 55 to 60%. Grade 1 diastolic dysfunction. There are no prior echocardiogram studies to compare. Dr. Donny Scales MD (Electronically Signed) Final Date: 18 May 2022 15:58 S
[2022-05-18 13:46] LABS: Alanine Aminotransferase 12 U/L (0-41); Albumin Level 4.1 g/dL (3.5-5.2); Alkaline Phosphatase 89 U/L (40-130); Aspartate Amino Transferase 16 U/L (0-40); Globulin 3.1 g/dL (1.3-4.6); Thyroid Stimulating Hormone 1.15 uIU/mL (0.27-4.20); Total Bilirubin 0.3 mg/dL (0.15-1.2); Total Protein 7.2 g/dL (6.6-8.7)
[2022-05-18] MEDS: perflutren protein-a microsphr 0.22 mg/mL SDV 3 mL IV (13:57)
[2022-05-18 13:59] LABS: Estmated Average Glucose 114; Hemoglobin A1C 5.6 % (4.0-6.0)
--- NOTE | 2022-05-18 14:23 | ECG_ITS ---
[facility] Test Date: 2022-05-18 Pat Name: Raul Morales Department: Room: 104 Gender: Male Watch Leader: : 1970 Requested By: Clyde Mayberry Order Number: [id number] Palak MD: Nelly Mcghee M.D. Measurements Intervals [place] Rate: 82 P: 34 AL: 182 QRS: 13 QRSD: 105 T: 43 QT: 370 QTc: 433 Interpretive Statements SINUS RHYTHM Compared to ECG 05/18/2022 10:46:27 No significant changes Electronically Signed On 05-18-2022 18:52:02 FUNCTIONAL MENTAL DISABILITY TEACHER by Nelly Mcghee M.D. [id number]
--- NOTE | 2022-05-18 14:47 | P.CONIM_ITS ---
Providers/Reason For Consult Consulting Physician/Specialty*: Cardiovascular medicine Reason for Consult*: Chest pain Requesting Physician: Lacho Attending Physician: Eleno Monk MD Primary Care Provider: Winsome Carlson MD History of Present Illness History of Present Illness Raul Morales is a 51 year old male with no known history of heart disease. He has risk factors in that he is slightly obese and is a smoker with dyslipidemia and hypertension. He had an angiogram in [place] about 10 years ago which he says was normal. He has been having chest pain for several days. The first 1 was about a week ago which was described as exertional pressure with radiation to his arms. It was relieved with rest. Yesterday he had a similar episode and took some nitroglycerin. This relieved the discomfort. He got the nitroglycerin after coming to the emergency room a week ago. He was back in the emergency room a second time and now today a third time with more episodes of pain. He was also here in March with an episode of chest pain. All of those work-ups have been negative. Review of Systems Narrative: Review of systems is negative. Medications/Allergies Home Medications Medication Instructions Recorded Confirmed Last Taken Type aspirin 81 mg tablet,delayed 81 mg PO DAILY 06/25/19 05/18/22 05/18/22 History release (Adult Low Dose Aspirin) nitroglycerin 0.4 mg sublingual 0.4 mg sublingual Q5M PRN chest 02/05/22 05/18/22 05/17/22 Rx tablet pain #60 tabs amlodipine 5 mg tablet 5 mg PO DAILY #30 tabs 03/24/22 05/18/22 05/17/22 Rx valsartan 160 mg tablet (Diovan) 160 mg PO DAILY #30 tabs 03/24/22 05/18/22 05/18/22 Rx furosemide 20 mg tablet 20 mg PO DAILY 30 days #30 tabs 03/25/22 05/18/22 05/18/22 Rx clonidine HCl 0.1 mg tablet 0.1 mg PO BID PRN Hypertension 05/18/22 05/18/22 Unknown History ibuprofen 200 mg capsule 400 mg PO Q6H PRN Pain 05/18/22 05/18/22 Unknown History triamcinolone acetonide 0.1 % 1 applic topical BID PRN Rash 05/18/22 05/18/22 Unknown History topical cream Allergies Allergy/AdvReac Type Severity Reaction Status Date / Time simvastatin Allergy ADR-Muscle Verified 05/18/22 09:03 Pain PFSH Acute PFSH: Medical History Dyslipidemia Hypertension Smoker Surgical History History of arthroscopic surgery of shoulder right 2014 History of surgery on left wrist cyst removed Family History Mother Cancer Hypertension Grandmother Diabetes Social History Smoking and tobacco status: never smoked Second hand smoke exposure: No Smoking risk assessment/counseling performed?: Yes Alcohol intake: never Desire information about alcohol rehabilitation?: No Counseling given: No Desire information about substance/drug rehabilitation?: No Counseling given: No Adopted: No Caregiver/support person: No Lives independently: Yes Household members: significant other Housing: Manufactured/Mobile home Marital status: Number of children: 2 Highest education level completed: Some College, No Degree service: No Current occupational status: unemployed Pets and animals: No History of recent travel: No Vitals/I&O/Wt Last Vital Signs Temp 98.1 F 05/18/22 08:28 Pulse 78 05/18/22 11:42 Resp 18 05/18/22 08:28 BP 147/92 05/18/22 11:42 Pulse Ox 93 05/18/22 11:42 O2 Del Method 05/18/22 11:42 Weight last 48 hrs Weight 275 lb Physical Exam Narrative: GENERAL: General he looks and feels well, is somewhat anxious. HEENT: Exam within normal limits. NECK: Supple without jugular vein distention. The carotid upstroke is normal without bruits. BACK: Exam normal. LUNGS: Clear. HEART: Regular rate and rhythm. ABDOMEN: Benign without organomegaly or tenderness. EXTREMITIES: No edema. NEUROLOGIC: Exam normal. SKIN: Unremarkable. Data 05/18/22 08:35 05/18/22 08:35 A&P Assessment and plan (1) Hypertension: (2) Tobacco dependency: (3) Chest pain: (4) Kidney stone: (5) Migraine headache without aura: (6) Dyslipidemia: (7) Smoker: Consult Attestations Medical Necessity Statement: He needs coronary angiography. He will keep coming back to the emergency room until the issue is settled. This could easily be anxiety but could also be coronary disease. His work-ups, troponins and EKGs have all been negative but he has several risk factors and his story is very consistent with angina pectoris. We will schedule him for 7:00 in the morning. Coding Level of Care Code New Pt Acute Instructional Consultant for Chg Fwd Patient Type New History Detailed Exam Detailed Medical Decision Making Moderate Complexity Diagnoses Hypertension I10 Tobacco dependency F17.200 Chest pain R07.9 Kidney stone N20.0 Migraine headache without aura G43.009 Dyslipidemia E78.5 Smoker F17.200
[2022-05-18] MEDS: nitroglycerin 1 gm/inch oint Pkt 0.5 INCH TOPICAL ×2 (15:33→20:28)
[2022-05-18 15:50] LABS: Anion Gap 13.9 (5-19); Blood Urea Nitrogen 17 mg/dL (6-20); Calcium 9.6 mg/dL (8.5-10.5); Carbon Dioxide 28 mmol/L (22-29); Chloride 99 mmol/L (98-107); Glomerular Filtration Rate 78.8 mL/min (90-130); Glucose 125 mg/dL (65-115); Osmolality Calculated 287 mOsm/kg (285-295); Potassium 3.9 mmol/L (3.5-5.1); Sodium 137 mmol/L (136-145)
[2022-05-18 16:14] LABS: Troponin 5 6HR Delta 0 ng/L (0-12)
[2022-05-18] MEDS: enoxaparin 40 mg/0.4 mL Syringe SUBCUT (17:11)
[2022-05-19] VITALS (64 sets, daily range): BP systolic 117–177; BP diastolic 71–118; PULSE 67–86; RESP 11–25; TEMP 36.7; O2SAT 91–98
[2022-05-19] MEDS: acetaminophen 325 mg Tablet 650 MG PO (00:04)
[2022-05-19 05:08] LABS: Basophils % 0.4 %; Eosinophils # 0.4 10^3/uL (0.0-0.8); Eosinophils % 5.4 %; Hematocrit 49.8 % (42.0-52.0); Hemoglobin 15.6 g/dL (11.7-16.6); Lymphocytes # 1.5 10^3/uL (0.8-4.8); Lymphocytes % 21.4 %; Mean Corpuscular HGB Conc 31.3 g/dL (30.0-36.0); Mean Corpuscular Hemoglobin 30.1 pg (28.0-34.0); Mean Platelet Volume 11.7 fL (7.4-10.4); Monocytes # 0.6 10^3/uL (0.2-0.9); Monocytes % 8.2 %; Neutrophils # 4.36 10^3/uL (1.8-7.7); Neutrophils % 64.3 %; Nucleated Red Blood Cells % 0 %; Platelet Count 133 10^3/cmm (130-400); Red Blood Count 5.19 10^6/uL (4.1-5.3); Red Cell Distribution Width 13.2 % (12.1-15.1); White Blood Count 6.8 10^3/uL (4.0-10.0)
[2022-05-19 05:25] LABS: Chol HDL Ratio 5.45 mg/dL (1.0-5.00); Cholesterol 229 mg/dL (0-200); HDL Cholesterol 42 mg/dL (60-100); LDL Cholesterol Calculated 156 mg/dL (50-129); LDL HDL Ratio 3.71 RATIO (0.00-3.22); Triglycerides 157 mg/dL (0-150)
[2022-05-19] MEDS: diphenhydrAMINE 50 mg Capsule PO (05:52)
[2022-05-19] MEDS: sodium chloride 0.9% 1,000 ML 50 ML IV (05:52)
--- NOTE | 2022-05-19 05:59 | XACV_ITS ---
Exam Room: [facility] Ht: 183 cm Wt: 124 kg BSA: 2.56 m2 Gender: Male : 1970 Any Known Allergies: Other Exam Priority: Routine Procedure(s): Procedure Description: Diagnostic procedure Procedure Description: PCI procedure Procedure Description: Left Heart Catheterization Procedure Description: Drug Eluting Coronary Stent Procedure Description: Coronary Angiography Diagnostic Cath Status: Urgent Diagnostic Findings * Heavy smoker with other risk factors with new onset angina, very typical discomfort. Angiography reveals right coronary artery dominance. The left main trifurcates into the left anterior descending, circumflex and ramus intermedius arteries. The LAD contains mild diffuse luminal irregularities throughout and in the midportion some more severe disease up to 30 or 40%. There is a large ramus intermedius artery with a 99% stenosis proximally. The circumflex is relatively small and contains mild diffuse luminal irregularities. The right coronary artery is a very large dominant vessel and ends distally as the posterior left ventricular branch and posterior descending artery. There are minor diffuse luminal irregularities. There is a 70% ostial posterior descending artery stenosis and then more distally multiple stenoses from 50 to 70%.. PCI Status: Urgent PCI LVEF Assessed: No PCI Indication: NSTE - ACS Interventional Findings * The ramus intermedius was primarily stented with a 4 by 15 stent. Good angiographic result. I chose to leave the right coronary artery alone since the culprit by angiography is clearly the ramus. We will plan stress testing in the future or he will be brought back for intervention if he remains symptomatic. Decision for PCI with Surgical Consult: No PCI for Multi-vessel Disease: No Conclusions 1. Severe stenosis proximal ramus intermedius followed by stenting. Stenosis of the posterior descending artery to be treated medically. Recommendations * Medical treatment for now. If symptomatic intervene on the right. Otherwise consider stress testing to assess ischemia in the posterior descending artery. Interventional RX Recommendation: PCI w/o planned CABG Diagnostic RX Recommendation: PCI w/o planned CABG Anticoagulation: Heparin Pressures Phase:Rest AO : 117 / 102 ( 110 ) @ 7:08:00 AM 123 / 88 ( 104 ) @ 7:20:00 AM Clinical Evaluation EBL: 5mL-10mL Procedural Details Procedure Consent Obtained. Admit Source: In Patient. Pre-Procedure Time Out. Identified patient by full name and date of as verbalized by the patient/guarantor. Does the consent match the physician's order: Yes. Accurate & Complete Informed Consent: Yes. Inpatient/Outpatient History & Physical on Chart: Yes. If H&P is completed, is and addenduem needed: No; If yes, is the addendum complete: N/A. Visualize and Verify Site with Patient/Guarantor: N/A. Relevant Radiology Images available: N/A. The risks, benefits, and alternatives of sedation and/or procedure were discussed by physician. The patient agrees to continue. Procedure started. [facility] Clinical Fraility Score: 3: Managing Well. 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 Chest Pain Symptom Assessment: Typical Angina Symptoms. Cardiovascular Instability: No,. Correct patient, site and procedure confirmed by cath team. Current diagnosis: Chest Pain. PERRLA. Strong, equal hand drill instructor bilaterally. Lungs clear x 5 lobes. IV Site on Arrival: 20 gauge in the left upper arm. IV Fluids: 0.9% NaCl at KVO. 0 mL infused prior to supervisor labor gang. Pre Procedural Pulses: right radial was 2+. Pre Procedural Pulses: bilateral dorsalis pedis was 3+. Oxygen started at 2liters/min via nasal canula. right groin was prepped with chloroprep then draped in the usual sterile fashion. right radial was prepped with chloroprep then draped in the usual sterile fashion. Baseline sample Acquired. HR: 72 BPM. Physician notified. Physician arrived. Physician scrubbed in. Immediate Pre-Procedure Time Out. Correct Patient: Yes; Correct Procedure: Yes; Correct Site: Yes; Correct Patient Position: Yes; Correct Supplies: Yes; Dried Flammable Prep: Yes; Blood Products Available: N/A;. Lidocaine 1% infiltrated to the right radial. Arterial access obtained. A 5 libyan TIG catheter in over wire. Multiple views taken of left coronary artery. Catheter redirected to the RCA. Catheter removed over the exchange wire. A 6 libyan JR4 catheter in over wire. Multiple views taken of right coronary artery. Catheter out. 6 libyan XB 3.5 guide catheter was inserted over the wire. [place] guidewire was advanced through the guide catheter to lesion in the Ramus. Inflation Number : 1 Roxie Moreno BIJAN [id number] ROCAEL -Lot Number# was prepped and advanced across the Ramus. The stent was deployed at 12 JOSELYN for 0:27 seconds. Results checked. Stent balloon out over wire. Wire out. Guide catheter out. A TR Band was successful obtaining hemostatsis at the Right Radial artery insertion site. Post Procedure: Pulses reassessed and unchanged. PERRLA. Strong, equal hand drill instructor bilaterally. No VTE prophylaxis required. Medication's Wasted: Nitro = 49.8 mg. Medication's Wasted: Heparin = 1000 units. Total IV fluids: 75 mL. Post-op diagnosis: Obstructive CAD. Estimated blood loss: 5mL-10mL. Responsiveness - Normal response to verbal stimuli; alert and oriented, PERRLA. Complications: none. Airway - Unaffected, no intervention required; spontaneous ventilation. Circulation: W/N/L, pulses unchanged. Nausea/Vomiting: No. Procedure completed. Patient transferred by wheelchair to CPRU. Vital chart was stopped. Access Site Site: Right Radial artery Sheath Size: 6 Fr Hemostasis Method: TR Band Hemostasis Success: Successful Procedure Medications Start: 6:54 AM Stop: 6:54 AM Medication: Versed Amount: 1 mg Route: I.V. Start: 6:54 AM Stop: 6:54 AM Medication: Fentanyl Amount: 50 mcg Route: I.V. Start: 6:57 AM Stop: 6:57 AM Medication: Versed Amount: 1 mg Route: I.V. Start: 6:58 AM Stop: 6:58 AM Medication: Versed Amount: 1 mg Route: I.V. Start: 6:59 AM Stop: 6:59 AM Medication: Fentanyl Amount: 50 mcg Route: I.V. Start: 7:06 AM Stop: 7:06 AM Medication: Nitrogylcerin Amount: 200 mcg Route: I.A. Start: 7:08 AM Stop: 7:08 AM Medication: Heparin Amount: 5000 units Route: I.V. Start: 7:21 AM Stop: 7:21 AM Medication: Versed Amount: 1 mg Route: I.V. I, the attending physician, have reviewed and verified all procedure medications. Yes, all medications given per verbal order History/Risk Factors Hypertension: Yes Dyslipidemia: Yes Peripheral Arterial Disease (PAD): No Myocardial Infarction (PA): No Obesity: Yes Tobacco Use: Current/Recent(w/in 1 year) Prior Interventions PCI: No CABG: No Valve Surgery: No Report Signatures Finalized by Dr. Donny Scales MD on 05/19/2022 07:57 AM
--- NOTE | 2022-05-19 07:30 | PC.NURSE ---
Around 07: Orders received from Dr. Scales, process manager, to give patient 600 mg Plavix PO. See AUG.
[2022-05-19] MEDS: clopidogrel 300 mg Tablet 600 MG PO (08:09)
[2022-05-19] MEDS: amlodipine 5 mg Tablet PO (08:41)
[2022-05-19] MEDS: losartan 50 mg Tablet 160 MG PO (08:41)
[2022-05-19] MEDS: sodium chloride 0.9% 1,000 ML 100 ML IV (08:41)
[2022-05-19] MEDS: FUROsemide 20 mg Tablet PO (08:43)
[2022-05-19] MEDS: pantoprazole DR 40 mg Tablet PO (08:43)
[2022-05-19] MEDS: metoprolol tartrate 50 mg Tablet PO ×2 (08:43→17:39)
--- NOTE | 2022-05-19 09:34 | P.PN_ITS ---
Subjective Subjective: Patient reports he is doing well. He just came back from angiogram, where a medicated stent was placed secondary to severe stenosis of ramus intermedius. Other diseases noted that is to be treated medically. Medications: Reviewed: Yes Vitals/I&O/Wt Last Vital Signs Temp 98.1 F 05/18/22 08:28 Pulse 80 05/19/22 07:30 Resp 18 05/19/22 07:30 BP 169/116 05/19/22 08:41 Pulse Ox 98 05/19/22 07:30 O2 Del Method 05/19/22 07:30 05/18/22 05/19/22 05/19/22 22:59 06:59 14:59 Intake Total 780 / 780 Balance 780 / 780 Weight last 48 hrs Weight 124.284 kg Weight 124.738 kg Physical Exam Narrative: General exam no distress currently Neck is supple no lymphadenopathy or thyromegaly Cardiovascular regular in rhythm without murmur, no S3 or S4 Lungs clear no wheezing or crackles Abdomen is soft nontender with positive bowel sounds. No obvious organomegaly Extremities no cyanosis clubbing or edema, cap refill brisk. Right wrist with band. No significant hematoma. Skin no rash Data 05/19/22 04:44 05/18/22 15:15 A&P Assessment and plan (1) Chest pain: Patient with 3 episodes of recurrent chest pain, occurring with exertion, with radiation to arms and jaw. Has relief with nitroglycerin. Troponins, negative EKG nondiagnostic Echocardiogram difficult study, preserved EF Angiogram today demonstrated coronary artery disease, with very stenotic ramus intermedius which was stented. Rest of disease will be treated medically. Plavix, aspirin, statin TSH checked and normal Appreciate cardiology consultation (2) Tobacco dependency: Nicotine patch. Discussed with patient. (3) Hypertension: Continue home medications Plan Add Protonix, avoid BC powder Other medical problems as listed in past medical history Full code Lovenox for DVT prophylaxis Attestations Medical Necessity Statement*: Needs continued hospitalization for close monitoring following cardiac intervention. Coding Level of Care Code Acute Gasoline Dragline Operator for Efra Wolff Diagnoses Chest pain R07.9 Tobacco dependency F17.200 Hypertension I10
[2022-05-19] MEDS: enoxaparin 40 mg/0.4 mL Syringe SUBCUT (17:39)
--- NOTE | 2022-05-19 18:03 | PC.NURSE ---
received from cardiac labor representative at 0820 via w/c.report received.pt alert and oriented x 4.sr on monitor.denies pain.right wrist with tr band on and inflated.right hand is warm to touch and with brisk capillary refill.no hematoma noted.palpable radial pulse noted distal to tr band .pt instructed in activity restrictions s/p radial artery procedure..and instructed to notify staff for any bleeding,pain,numbness,bruising...or for any concerns at all.pt verb understanding of instructions
--- NOTE | 2022-05-19 18:07 | PC.NURSE ---
tr band slowly deflated and eventually removed at 1500.site dressed with 2x2 gauze and secured with biocclusive drsg.right hand remains warm to touch and with brisk capillary refill.palpable radial pulse noted.no hematoma formation noted.pt instructed in activity restrictions s/p tr band removal...and instructed to notify staff for any bleeding,pain,numbness,bruising ,or for any concerns at all.pt verb understanding of instructions.
[2022-05-20 01:47] LABS: Basophils % 0.5 %; Eosinophils # 0.3 10^3/uL (0.0-0.8); Eosinophils % 5.4 %; Hematocrit 50.6 % (42.0-52.0); Hemoglobin 16.1 g/dL (11.7-16.6); Lymphocytes # 1.7 10^3/uL (0.8-4.8); Lymphocytes % 27.2 %; Mean Corpuscular HGB Conc 31.8 g/dL (30.0-36.0); Mean Corpuscular Hemoglobin 30.3 pg (28.0-34.0); Mean Corpuscular Volume 95.1 fl (80-94); Mean Platelet Volume 10.9 fL (7.4-10.4); Monocytes # 0.7 10^3/uL (0.2-0.9); Monocytes % 11.1 %; Neutrophils # 3.49 10^3/uL (1.8-7.7); Neutrophils % 55.6 %; Nucleated Red Blood Cells % 0 %; Platelet Count 138 10^3/cmm (130-400); Red Blood Count 5.32 10^6/uL (4.1-5.3); Red Cell Distribution Width 13.1 % (12.1-15.1); White Blood Count 6.3 10^3/uL (4.0-10.0)
[2022-05-20 02:09] LABS: Blood Urea Nitrogen 18 mg/dL (6-20); Calcium 9.3 mg/dL (8.5-10.5); Carbon Dioxide 28 mmol/L (22-29); Chloride 105 mmol/L (98-107); Glucose 99 mg/dL (65-115); Osmolality Calculated 292 mOsm/kg (285-295); Sodium 140 mmol/L (136-145)
[2022-05-20 02:13] LABS: Anion Gap 11.3 (5-19); Potassium 4.3 mmol/L (3.5-5.1)
[2022-05-20 03:54] VITALS: BP 117/78; PULSE 75; RESP 16; TEMP 36.8; O2SAT 95
[2022-05-20 04:02] VITALS: PULSE 66
--- NOTE | 2022-05-20 07:03 | P.PN_ITS ---
Subjective Subjective: aLyla has had an uneventful night. Yesterday at angiography was discovered to have a greater than 95% stenosis of the proximal ramus intermedius which is a very large artery. This was primarily stented. He also has some disease in the ostial and then distal posterior descending artery. This is a relatively small artery and was not intervened upon. My feeling was the culprit was the ramus. The procedure was done from the right radial artery. His night has been uneventful. No further chest discomfort. Vitals/I&O/Wt Last Vital Signs Temp 98.2 F 05/20/22 03:54 Pulse 66 05/20/22 04:02 Resp 16 05/20/22 03:54 BP 117/78 05/20/22 03:54 Pulse Ox 95 05/20/22 03:54 O2 Del Method 05/19/22 19:46 05/19/22 05/20/22 05/20/22 22:59 06:59 14:59 Intake Total 2386.667 / 3106.667 Output Total Balance 2385.667 / 3105.667 Weight last 48 hrs Weight 274 lb Weight 275 lb Physical Exam Narrative: GENERAL: In general he is awake alert and in no distress HEENT: Exam within normal limits. NECK: Supple without jugular vein distention. The carotid upstroke is normal without bruits. BACK: Exam normal. LUNGS: Clear. HEART: Regular rate and rhythm. ABDOMEN: Benign without organomegaly or tenderness. EXTREMITIES: No edema. The right radial artery is flat, dry without bleeding, hematoma or other vascular anomaly. There is 2+ pulse. NEUROLOGIC: Exam normal. SKIN: Unremarkable. Data 05/20/22 01:31 05/20/22 01:31 A&P Assessment and plan (1) Angina pectoris: (2) Hypertension: (3) Tobacco dependency: (4) Dyslipidemia: (5) Essential hypertension: Plan Discharge home today. We will follow him up in 7 to 10 days in the clinic. I have given him his activity instructions. No lifting over 5 pounds for 2 days. He may continue the amlodipine, aspirin, clonidine, Lasix, sublingual nitro and valsartan at home. I would add a beta-wilda, statin and Plavix. Attestations Medical Necessity Statement*: Home today. Coding Level of Care Code Established Pt Acute Stump Blower for Peggyg Fwd Patient Type Established History Detailed Exam Detailed Medical Decision Making Moderate Complexity Diagnoses Angina pectoris I20.9 Hypertension I10 Tobacco dependency F17.200 Dyslipidemia E78.5 Essential hypertension I10
[2022-05-20 07:11] VITALS: BP 135/91; PULSE 73; RESP 14; TEMP 36.9; O2SAT 93
--- NOTE | 2022-05-20 07:32 | PM.DCS ---
Discharge Providers Date of Admission: 05/19/22 14:02 Date of Discharge: May 20, 2022 Attending Provider at Admission: Eleno Monk MD Attending Provider at Discharge: Eleno Monk MD Primary Care Provider: Winsome Carlson MD Diagnoses at Discharge Discharge Diagnosis (1) Angina pectoris: Status: Acute (2) Hypertension: Status: Acute (3) Tobacco dependency: Status: Acute (4) Dyslipidemia: Status: Acute (5) Essential hypertension: Status: Chronic Reason for Visit Reason for Visit: chest pain Hospital Course Hospital Course Raul is a 51-year-old white male who presented through the emergency department with complaints of recurrent exertional chest discomfort. EKG was essentially normal, troponin negative, but history very convincing. He was admitted to the hospital, and cardiology consulted for his symptomatology. Echocardiogram was obtained which was essentially normal, EF preserved. Angiogram was recommended and this was performed May 21. This demonstrated significant atherosclerotic disease, with a flow-limiting lesion ramus intermedius that was intervened upon with a drug-eluting stent. Approach was right radial artery. Following the procedure he had no apparent complications, no recurrent chest discomfort. The following day, May 20, he was feeling well. Laboratory was normal. He had no significant hematoma at his right radial artery insertion site and it was thought he could be discharged home. I visited with him regarding the importance of Plavix. I also discussed with him taking a statin even though he listed this as an allergy. He indicated to me that he had had some muscle pain in the past with simvastatin. He was willing to try Lipitor, and let his primary care provider or inventory control specialist know should discomfort return. Other adjustments in his blood pressure medication were made, consistent with his new diagnosis of atherosclerotic heart disease. 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 echo wo/w contrast [id number] Routine Ultrasound 05/18/22 13:16 Completed Radiology Impressions Chest X-Ray 05/18/22 08:22 Impression: Negative chest. Laboratory Results WBC 6.3 10^3/uL (4.0-10.0) 05/20/22 01:31 RBC 5.32 10^6/uL (4.1-5.3) H 05/20/22 01:31 Hgb 16.1 g/dL (11.7-16.6) 05/20/22 01:31 Hct 50.6 % (42.0-52.0) 05/20/22 01:31 MCV 95.1 fl (80-94) H 05/20/22 01:31 MCH 30.3 pg (28.0-34.0) 05/20/22 01:31 MCHC 31.8 g/dL (30.0-36.0) 05/20/22 01:31 RDW 13.1 % (12.1-15.1) 05/20/22 01:31 Plt Count 138 10^3/cmm (130-400) 05/20/22 01:31 MPV 10.9 fL (7.4-10.4) H 05/20/22 01:31 Neut % (Auto) 55.6 % 05/20/22 01:31 Lymph % (Auto) 27.2 % 05/20/22 01:31 [place] % (Auto) 11.1 % 05/20/22 01:31 Eos % (Auto) 5.4 % 05/20/22 01:31 Baso % (Auto) 0.5 % 05/20/22 01:31 Neut # (Auto) 3.49 10^3/uL (1.8-7.7) 05/20/22 01:31 Lymph # (Auto) 1.7 10^3/uL (0.8-4.8) 05/20/22 01:31 [place] # (Auto) 0.7 10^3/uL (0.2-0.9) 05/20/22 01:31 Eos # (Auto) 0.3 10^3/uL (0.0-0.8) 05/20/22 01:31 Baso # (Auto) 0.0 10^3/uL (0.0-0.1) 05/20/22 01:31 Nucleated RBC % (auto) 0 % 05/20/22 01:31 Nucleated RBCs # 0.0 /100WBC 05/20/22 01:31 Sodium 140 mmol/L (136-145) 05/20/22 01:31 Potassium 4.3 mmol/L (3.5-5.1) 05/20/22 01:31 Chloride 105 mmol/L (98-107) 05/20/22 01:31 Carbon Dioxide 28 mmol/L (22-29) 05/20/22 01:31 Anion Gap 11.3 (5-19) 05/20/22 01:31 BUN 18 mg/dL (6-20) 05/20/22 01:31 Creatinine 0.9 mg/dL (0.7-1.2) 05/20/22 01:31 GFR Calculation 89.0 mL/min (90-130) L 05/20/22 01:31 Glucose 99 mg/dL (65-115) 05/20/22 01:31 Estimat Average Glucose 114 05/18/22 08:25 Hemoglobin A1c 5.6 % (4.0-6.0) 05/18/22 08:25 Calculated Osmolality 292 mOsm/kg (285-295) 05/20/22 01:31 Calcium 9.3 mg/dL (8.5-10.5) 05/20/22 01:31 Total Bilirubin 0.3 mg/dL (0.15-1.2) 05/18/22 08:35 Direct Bilirubin 0.20 mg/dL (0.00-0.30) 05/18/22 08:35 AST 16 U/L (0-40) 05/18/22 08:35 ALT 12 U/L (0-41) 05/18/22 08:35 Alkaline Phosphatase 89 U/L (40-130) 05/18/22 08:35 Troponin T Baseline 6 ng/L (0-15) 05/18/22 08:35 Troponin T 120 Minute 6.00 ng/L (0-15) 05/18/22 10:38 Delta Troponin T 0 ABS# (0-10) 05/18/22 10:38 Troponin T Hi Sens 6Hr 6.00 ng/L (0-15) 05/18/22 15:15 Troponin T Hi Sens 6Hr Delta 0 ng/L (0-12) 05/18/22 15:15 Total Protein 7.2 g/dL (6.6-8.7) 05/18/22 08:35 Albumin 4.1 g/dL (3.5-5.2) 05/18/22 08:35 Globulin 3.1 g/dL (1.3-4.6) 05/18/22 08:35 Triglycerides 157 mg/dL (0-150) H 05/19/22 04:44 Cholesterol 229 mg/dL (0-200) H 05/19/22 04:44 LDL Cholesterol, Calc 156 mg/dL (50-129) H 05/19/22 04:44 HDL Cholesterol 42 mg/dL (60-100) L 05/19/22 04:44 LDL/HDL Ratio 3.71 RATIO (0.00-3.22) H 05/19/22 04:44 Cholesterol/HDL Ratio 5.45 mg/dL (1.0-5.00) H 05/19/22 04:44 TSH 1.15 uIU/mL (0.27-4.20) 05/18/22 08:35 Vitals Last Vital Signs Temp 98.5 F 05/20/22 07:11 Pulse 73 05/20/22 07:11 Resp 14 05/20/22 07:11 BP 135/91 05/20/22 07:11 Pulse Ox 93 05/20/22 07:11 O2 Del Method 05/20/22 07:11 Discharge Plan Discharge Patient Disposition: Home Condition: Stable Prescriptions: New clopidogrel 75 mg Tablet 75 mg PO DAILY Qty: 30 11RF metoprolol tartrate 50 mg Tablet 50 mg PO BID Qty: 60 0RF atorvastatin 40 mg Tablet 40 mg PO BEDTIME Qty: 30 0RF aspirin 81 mg Tablet,Delayed Release (Dr/Ec) 81 mg PO DAILY Qty: 30 0RF Continued aspirin [Adult Low Dose Aspirin] 81 mg tablet,delayed release (DR/EC) 81 mg PO DAILY amlodipine 5 mg tablet 5 mg PO DAILY Qty: 30 3RF valsartan [Diovan] 160 mg tablet 160 mg PO DAILY Qty: 30 1RF furosemide 20 mg tablet 20 mg PO DAILY 30 Days Qty: 30 3RF nitroglycerin 0.4 mg tablet, sublingual 0.4 mg sublingual Q5M PRN (Reason: chest pain) Qty: 60 0RF Rx Instructions: do not exceed 3 doses per episode clonidine HCl 0.1 mg tablet 0.1 mg PO BID PRN (Reason: Hypertension) triamcinolone acetonide 0.1 % cream 1 applic topical BID PRN (Reason: Rash) ibuprofen 200 mg Capsule 400 mg PO Q6H PRN (Reason: Pain) Discharge Orders: Discharge Order (Routine); Ordered 05/20/22 Ordered By: Eleno Monk Referrals: Victorina Mccabe FNP [Nurse Practitioner] - 7-10 days (Assessment of right radial artery area and chemistry panel.) Winsome Carlson MD [Primary Care Provider] - 4-7 days Discharge Diet: Cardiac Discharge Activity: Increase activity as tolerated Patient Instructions: Opioid Safety, Pain Management Activity Restrictions/Additional Instructions: No lifting over bleeding or other anomalies of the right wrist. Take all medicine as prescribed Follow-up with cardiology, as directed and your primary care provider in 4 to 7 days Stop smoking Return for any recurrent pain Patient's Health Concerns: Chest pain Assessment: Coronary artery disease identified, coronary stenting performed Plan of Treatment: See above Discharge Attestations Time Spent in Discharge Care*: greater than 30 min Quality Metrics Clinical Quality Measures [ No reported AMI, CVA or VTE this stay] Coding Level of Care Code Acute [facility] note Diagnoses Angina pectoris I20.9 Hypertension I10 Tobacco dependency F17.200 Dyslipidemia E78.5 Essential hypertension I10
[2022-05-20] MEDS: clopidogrel 75 mg Tablet PO (09:01)
[2022-05-20] MEDS: aspirin 81 mg EC Tablet PO (09:01)
[2022-05-20] MEDS: metoprolol tartrate 50 mg Tablet PO (09:01)
[2022-05-20 09:15] VITALS: BP 135/91
[2022-05-20] MEDS: pantoprazole DR 40 mg Tablet PO (09:18)
[2022-05-20] MEDS: FUROsemide 20 mg Tablet PO (09:18)
[2022-05-20 09:19] VITALS: BP 135/91
[2022-05-20] MEDS: losartan 50 mg Tablet 160 MG PO (09:19)
[2022-05-20] MEDS: amlodipine 5 mg Tablet PO (09:20)
--- NOTE | 2022-05-20 10:08 | PC.CHAP ---
Pastoral Care Encounter/Spiritual Assessment Type of Contact [] Declined pick pack worker visit [] Patient/Family/Request visit [] Outpatient visit [] Follow-up visit [] Physician referral [] Code/Alert [x] Routine visit [] Staff referral [] Actively dying [] Patient sleeping [] Family support [] [] Out of room [] Palliative care [] [x] Receiving care in room [] Pre-surgical visit [] Trauma [] Long length of stay [] ICU visit [] Other: Relational/Emotional Strength [x] Patient feels connected with others/family/visitors/staff [] Distress [] Loneliness/isolation [] Abandonment Spirituality of Patient [x] Person of Faviola [] Attends [employer] of their [place] [x] Believes in Prayer [] Reads Bible or Congregational materials [] There are Spiritual issues to be addressed Sports Management Internship Interventions [x] Prayer [x] Active listening [x] Non-anxious presence [x] Spiritual/emotional support [] Crisis/trauma care [x] Spiritual counseling [] Bereavement support [] Provided bereavement packet [] Provided Bible/devotional materials [] Provided toy/stuffed animal, coloring book to patient or family member [] Provided Communion [] Anointing/[place] [] Salvation [x] Completed spiritual assessment [] Other: Impact on Illness or Injury [] Angry [] Fearful [] Anxious [] Often cries [] Exhaustion [] Unable to work [] Unable to attend adventist [] Unable to walk/stand [] Unable to read [] Unable to drive [] Unable to eat/drink [] Unable to sleep [] Unable to be with family [] Patient intubated [] Other: Summary had a stent proceeduer has a good attitude +1 has a good attitude well be going home Time spent with patient 10 mins
--- NOTE | 2022-05-20 12:55 | PC.NURSE ---
discharge instructions given and explained.pt verb understanding.discharged ambulatory to exit at 0915.sig other to drive pt home
== END 2022-05-20 09:15 | disposition home or self-care (01) | DRG 247 ==
LOC: ER 13:36 → CSU 14:03
PROVIDERS: Internal Medicine Cardiovascular Disease; Admitting Provider Internal Medicine; Emergency Provider Family Medicine; PCP Family Medicine; Visit Provider Internal Medicine
PROC: 027034Z Dilation of Coronary Artery, One Artery with Drug-eluting Intraluminal Device, Percutaneous Approach (ICD-10-PCS; principal; 2022-05-19 07:00)
PROC: 027034Z Dilation of Coronary Artery, One Artery with Drug-eluting Intraluminal Device, Percutaneous Approach (ICD-10-PCS; 2022-05-19 07:00)
DX: I25.119 Atherosclerotic heart disease of native coronary artery with unspecified angina pectoris (principal); I10 Essential (primary) hypertension; E78.5 Hyperlipidemia, unspecified; F17.200 Nicotine dependence, unspecified, uncomplicated; Z79.82 Long term (current) use of aspirin
CPT/HCPCS: 36415; 71045; 80048; 80061; 80076; 83036; 84443; 84484; 85025; 93005; 93454; 96365; 96372; 99152; 99153; 99285; C1769; C1874; C1887; C1894; C8929; C9600; G0378; J1644; J1650; J2250; J3010; J3490; J7030; Q0163; Q9956; Q9967

== ENCOUNTER → 2022-05-26 09:29 | Outpatient (BNVA) | payer MEDICAID, SELFPAY | PROVIDERS: PCP Family Medicine; Visit Provider Nurse Practitioner Family | DX: Z95.5 Presence of coronary angioplasty implant and graft (principal); I25.10 Atherosclerotic heart disease of native coronary artery without angina pectoris | CPT/HCPCS: 36415; 80048 ==

== ENCOUNTER 2022-08-30 06:29 | Outpatient (CLI) | payer MEDICAID, SELFPAY ==
[2022-08-30 06:46] VITALS: BMI 38.0
--- NOTE | 2022-08-30 07:08 | ECG_ITS ---
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 Interpretive Statements NAME OF STUDY: LEXISCAN SESTAMIBI STRESS TEST INDICATION: [Chest Pain, ] Procedure: At the baseline, the blood pressure was 128/93 mmHg with a heart rate of 62 bpm. The electrocardiogram showed normal sinus rhythm, normal axis with normal ST and T's. The Lexiscan was infused over a period of 20 seconds. A total of 0.4 mg of Lexiscan was infused. The stress phase was continued for a total of 5 minutes. Heart rate was at the end of stress phase was 84 bpm and a blood pressure of 138/96 mmHg. The EKG at the peak infusion revealed normal sinus rhythm with no significant ST-T wave changes. Sestamibi was injected 20 seconds after the Lexiscan infusion. Blood pressure at the end of recovery phase was 156/94 mmHg with a heart rate of 81 bpm. Conclusion: 1. Normal EKG response to Lexiscan infusion 2. No Lexiscan induced chest pain or cardiac arrhythmia. 3. Normal blood pressure and heart rate response. 4. Sestamibi/sestamibi perfusion scan pending; see separate report. Electronically Signed On 09-16-2022 12:04:28 CDT by Riccardo Marie M.D. [email or web address]
--- NOTE | 2022-08-30 07:09 | NMCV_ITS ---
NM kellie perf SPECT r/s* [id number] Carmen Raul Age: 51 Gender: M : 1970 Exam Date: 08/30/2022 07:47 Ordering Phys: Riccardo Marie M.D ([email or web address]) Technologist: KENZIE Celeste Exam Location: [facility] Indications: CHEST PAIN STRESS TEST [facility] IMAGE PROTOCOL Rest/Stress 1 Lexiscan Day Radiopharmaceutical Dose (mCi) Administration Site Administered by Rest: Tc-99m 10.6 IV KENZIE Moore Sestamibi Stress:Tc-99m 33.0 IV KENZIE Moore Sestamibi Rest: 30-Aug-2022 60 Discovery 630 Stress: 30-Aug-2022 30 Discovery 630 0.4mg Lexiscan. Images obtained in supine and prone position. SPECT RESULTS Technical Quality: Excellent Raw Data Analysis: Normal Image Corrections: No attenuation or motion correction applied Summed Stress Score: 2 Summed Rest Score: 3 Summed Difference Score: 0 PERFUSION FINDINGS There is a small in size mostly fixed perfusion defect noted in apical and apical inferior wall. This is consistent with small sized prior infarct with minimal monica-infarct ischemia in LAD territory. FUNCTIONAL RESULTS (calculated via Gated SPECT) Stress Image LV EF (%): 61 Stress EDV (mL):166 TID: 0.95 Stress ESV (mL):64 FUNCTIONAL FINDINGS: There is normal left ventricular systolic function. IMPRESSIONS 1. Small sized prior infarct in the LAD territory with minimal monica-infarct ischemia. 2. LV systolic function is normal. Riccardo Marie MD (Electronically Signed) Final Date: 05 September 2022 07:56 S
[2022-08-30] MEDS: regadenoson 0.4 Mg/5 ml Syringe IVP (08:24)
[2022-08-30 08:45] VITALS: BP 156/94; PULSE 85
== END 2022-08-30 06:30 | disposition home or self-care (01) ==
LOC: CDL 06:30
PROVIDERS: PCP Family Medicine; Visit Provider Internal Medicine
DX: R07.9 Chest pain, unspecified (principal)
CPT/HCPCS: 36415; 78452; 93017; 96374; A9500; J2785

== ENCOUNTER 2022-09-13 08:42 | Outpatient (CLI) | payer MEDICAID, SELFPAY ==
--- NOTE | 2022-09-13 08:54 | MR_ITS ---
WS: [id number] MRI LUMBAR SPINE NONCONTRAST TECHNIQUE: Sagittal T1, T2 and STIR imaging. Axial T1 and T2 imaging. CLINICAL INFORMATION: OTHER SPONDYLOSIS WITH RADICULOPATHY LUMBOSACRAL REGION COMPARISON: None. FINDINGS: Mild lumbar curve. No acute compression. No high-grade central canal stenosis. L1-L2: Mild facet arthropathy. Spinal canal and foramen are patent. L2-L3: Mild annular bulging. Slight effacement of the ventral thecal sac. Mild facet arthropathy. Sma ll foraminal protrusions with mild bilateral foraminal narrowing. Slight impingement on the exiting L 2 nerve roots bilaterally. L3-L4: Mild annular bulging. Small bilateral foraminal protrusions RIGHT greater than LEFT with mild RIGHT greater than LEFT foraminal narrowing. Mild facet arthropathy. L4-L5: Mild annular bulging. Slight effacement of ventral thecal sac. Bilateral foraminal protrusions with mild to moderate RIGHT greater than LEFT foraminal narrowing. Moderate facet arthropathy. Small facet effusions. L5-S1: No significant disc bulging. Mild facet arthropathy. Spinal canal and foramen are patent Partially visualized bilateral adrenal nodules likely adenomas but incompletely visualized. This can be followed up with adrenal protocol CT. MR/MR lumbar spine wo con* [id number] IMPRESSION: 1. Mild lumbar curve. No acute compression. No high-grade central canal stenos is. 2. Bilateral foraminal protrusions at L2-L3 L3-L4 with mild bilateral foramina l narrowing at these levels. Slight impingement on the exiting L2 and L3 nerve roots respectively. 3. Bilateral foraminal protrusions L4-L5 with mild to moderate bilateral hebert inal narrowing and impingement on the RIGHT greater than LEFT exiting L4 nerve roots. 4. Mild RIGHT L5-S1 bony foraminal narrowing. 5. Mild facet arthropathy L3-L5. 6. Partially visualized bilateral adrenal nodules likely adenomas but incomple tely visualized. This can be followed up with adrenal protocol CT.
== END 2022-09-13 08:43 | disposition home or self-care (01) ==
PROVIDERS: PCP Family Medicine; Visit Provider General Practice
DX: M51.36 Other intervertebral disc degeneration, lumbar region (principal); M47.27 Other spondylosis with radiculopathy, lumbosacral region; M47.896 Other spondylosis, lumbar region; M51.26 Other intervertebral disc displacement, lumbar region; M48.07 Spinal stenosis, lumbosacral region
CPT/HCPCS: 72148

== ENCOUNTER 2022-12-29 07:49 | Outpatient (CLI) | payer MEDICAID, SELFPAY ==
--- NOTE | 2022-12-29 08:00 | CTR_ITS ---
PROCEDURE INFORMATION: Exam: CT Abdomen And Pelvis Without And With Contrast Exam date and time: 12/29/2022 9:08 AM Age: 52 years old Clinical indication: Abnormal findings; Abnormal radiologic finding of the abdomen; Radiologic exam and body structure: MR adrenal; Additional info: Adrenal nodules per mri, adrenal protocol TECHNIQUE: Imaging protocol: Computed tomography of the abdomen and pelvis without and with contrast. Radiation optimization: All CT scans at this facility use at least one of these dose optimization techniques: automated exposure control; mA and/or kV adjustment per patient size (includes targeted exams where dose is matched to clinical indication); or iterative reconstruction. Contrast material: OMNI 350; Contrast volume: 95 ml; Contrast route: INTRAVENOUS (IV); REPORTING DATA: Count of CT and Cardiac NM exams in prior 12 months: This patient has received 2 known CTs and 0 known cardiac nuclear medicine studies in the 12 months prior to the current study. COMPARISON: MR lumbar spine wo con* [id number] 09/13/2022 10:09 AM RADIATION DOSE METRICS: Total DLP (mGy-cm): 2705.63 FINDINGS: Liver: Normal without focal lesions. Gallbladder and bile ducts: Normal. No calcified stones. No ductal dilation. Pancreas: Normal without ductal dilatation. Spleen: Normal. Adrenal glands: 2.5 x 2.2 cm right adrenal nodule and 1.3 cm left adrenal nodule show internal attenuation averaging less than 10 Hounsfield units on noncontrast sequence in keeping with lipid rich adenomas. Kidneys and ureters: Normal. No hydronephrosis. Stomach and bowel: No bowel dilatation or mucosal thickening. Mild colonic diverticulosis without findings of diverticulitis. Appendix: Normal. Intraperitoneal space: Unremarkable. No free air. No significant fluid collection. Vasculature: Mild systemic atherosclerotic calcification without abdominal aortic aneurysm. Lymph nodes: Unremarkable. No enlarged lymph nodes. Urinary bladder: Urinary bladder is unremarkable. Reproductive: Unremarkable as visualized. Bones/joints: No acute fracture. Mild degenerative changes along the imaged axial skeletal system. Scattered sclerotic foci in the bones are nonaggressive appearing. Soft tissues: Multiple areas of anterior abdominal wall wispy stranding likely on the basis of subcutaneous injections. Small fat containing bilateral inguinal hernias. CT/CT abdomen pelvis wo/w [id number] IMPRESSION: 1. Bilateral adrenal adenomas. 2. Additional chronic and incidental findings as above. COMMENTS: Consistent with the [employer]'s Incidental Findings Committee white paper (J Am Elizabeth Radiol 2017): For any incidental adrenal lesion greater than or equal to 1 cm but less than or equal to 4 cm classified in this report as benign, likely benign, or containing fat (including classification as an adenoma or myelolipoma), no follow-up imaging is recommended per consensus recommendations based on imaging criteria. Further lab evaluation could be pursued if warranted based on clinical findings.
[2022-12-29] MEDS: iohexol 350 mg/mL 500 mL Btl (per mL) IV (09:17)
== END 2022-12-29 07:50 | disposition home or self-care (01) ==
PROVIDERS: PCP Family Medicine; Visit Provider Nurse Practitioner Family
DX: D35.00 Benign neoplasm of unspecified adrenal gland (principal)
CPT/HCPCS: 74178; Q9967

== ENCOUNTER → 2023-02-10 12:05 | Outpatient (BNVA) | payer MEDICAID, SELFPAY | PROVIDERS: PCP Family Medicine; Visit Provider Family Medicine | DX: E78.5 Hyperlipidemia, unspecified (principal); I10 Essential (primary) hypertension; I48.91 Unspecified atrial fibrillation | CPT/HCPCS: 80053; 80061; 84443 ==

== ENCOUNTER → 2023-02-24 10:53 | Outpatient (BNVA) | payer MEDICAID, SELFPAY | PROVIDERS: PCP Family Medicine; Visit Provider Internal Medicine | DX: E27.8 Other specified disorders of adrenal gland (principal); I10 Essential (primary) hypertension | CPT/HCPCS: 36415; 80053; 82088; 84244 ==

== ENCOUNTER → 2023-03-01 08:50 | Outpatient (BNVA) | payer MEDICAID, SELFPAY | PROVIDERS: PCP Family Medicine; Visit Provider Family Medicine | DX: E27.8 Other specified disorders of adrenal gland (principal); I10 Essential (primary) hypertension | CPT/HCPCS: 82384; 82530; 82570 ==

== ENCOUNTER 2023-04-03 08:07 | Outpatient (CLI) | payer MEDICAID, SELFPAY ==
[2023-04-03 09:25] LABS: Total Volume Urine 1300 ml
[2023-04-03 09:44] LABS: Urine Creatinine 161 mg/dL (39-259)
== END 2023-04-03 08:08 | disposition home or self-care (01) ==
PROVIDERS: PCP Family Medicine; Visit Provider Internal Medicine
DX: E78.5 Hyperlipidemia, unspecified (principal); R31.9 Hematuria, unspecified
CPT/HCPCS: 82570

== ENCOUNTER 2023-11-06 15:03 | Inpatient (IN) | payer SELFPAY ==
[2023-11-06] VITALS (34 sets, daily range): BP systolic 127–161; BP diastolic 87–93; PULSE 61–87; RESP 8–23; TEMP 36.8; O2SAT 91–96; BMI 40.6
--- NOTE | 2023-11-06 15:04 | ECG_ITS ---
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 Measurements Intervals [place] Rate: 71 P: 36 AR: 191 QRS: 26 QRSD: 111 T: 40 QT: 361 QTc: 394 Interpretive Statements SINUS RHYTHM MODERATE INTRAVENTRICULAR CONDUCTION DELAY [110+ ms QRS DURATION] Compared to ECG 05/18/2022 15:01:57 Intraventricular conduction delay now present Electronically Signed On 11-07-2023 8:33:58 CDT by Pat Zuniga M.D. [id number]
--- NOTE | 2023-11-06 15:04 | XRR_ITS ---
PROCEDURE INFORMATION: Exam: XR Chest Exam date and time: 11/06/2023 3:47 PM Age: 52 years old Clinical indication: Pain; Chest pressure; Additional info: Cp TECHNIQUE: Imaging protocol: Radiologic exam of the chest. Views: 1 view. COMPARISON: CR XR chest 1V portable [id number] 05/18/2022 8:49 AM FINDINGS: Airway: The airways are patent. Lungs: Lungs are clear. Pleural spaces: No pleural effusions or pneumothorax. Heart/Mediastinum: Cardiomediastinal silhouette is magnified due to technique. The heart demonstrates mild diffuse enlargement. Bones/joints: No acute skeletal abnormality or aggressive osseous lesion. Soft tissues: No acute soft tissue findings. XR/XR chest 1V portable [id number] IMPRESSION: No acute thoracic pathology.
[2023-11-06 15:50] LABS: Basophils % 0.4 %; Eosinophils # 0.3 10^3/uL (0.0-0.8); Eosinophils % 5.2 %; Hematocrit 46.1 % (37-53); Lymphocytes % 20.2 %; Mean Corpuscular Hemoglobin 30.1 pg (27-33); Mean Corpuscular Volume 91.3 fl (82-101); Mean Platelet Volume 10.6 fL (7.4-10.4); Monocytes # 0.4 10^3/uL (0.2-0.9); Monocytes % 7.9 %; Neutrophils # 3.21 10^3/uL (1.8-7.7); Neutrophils % 66.3 %; Nucleated Red Blood Cells % 0 %; Platelet Count 126 10^3/cmm (157-399); Red Blood Count 5.05 10^6/uL (3.85-5.65); Red Cell Distribution Width 12.4 % (12.1-15.1); White Blood Count 4.84 10^3/uL (3.29-11.43)
--- NOTE | 2023-11-06 15:53 | ED_ITS ---
Documented by User: Jorge Sim MD 11/06/23 17:50 HPI - Chest Pain 2 General: Chief Complaint: Chest Pain Stated Complaint: Chest pain hand numb sob jaw and neck Time Seen by Provider: 11/06/23 15:44 Source: patient Mode of arrival: ambulatory Limitations: no limitations History of Present Illness: 52-year-old male states he started havin g chest pain today at 1130 states he had had a pressure type pain that is going into his jaw and right arm. States he did take a nitro and his pain resolved but states he did have another episode of pain just prior to arrival. Denies any severe pain currently denies any cough or fever no nausea. Does have a history of heart disease in the past. Associated symptoms: Deny abdominal pain, dyspnea, fever(s), nausea or vomiting Review of Systems 2 Const: Denies: fever(s), chills, body aches or change in appetite ENMT: Denies: throat pain or dental pain Card: Reports: chest pain Resp: Denies: dyspnea GI: Denies: abdominal pain, nausea, vomiting or diarrhea : Denies: dysuria Musc: Denies: neck pain or back pain Skin/Breast: Denies: rash Neuro: Denies: headache(s) PFSH ED 2 PFSH: Medical History Atherosclerosis of coronary artery Hypertension Dyslipidemia Smoker Surgical History History of surgery on left wrist cyst removed History of arthroscopic surgery of shoulder right 2013 Family History Mother Cancer Hypertension Grandmother Diabetes Social History Smoking and tobacco/nicotine status: never used tobacco/nicotine Second hand smoke exposure: No Alcohol intake: never Substance/Drug Use: never Adopted: No Caregiver/support person: No Lives independently: Yes Household members: significant other Housing: Manufactured/Mobile home Marital status: Number of children: 2 Highest education level completed: Some College, No Degree service: No Current occupational status: unemployed Pets and animals: No Physical Exam 2 Const: COMMON NORMALS: patient oriented x3 HENMT: COMMON NORMALS: normocephalic and atraumatic HEAD & SCALP: n ormocephalic and atraumatic Eye: COMMON NORMALS: conjunctivae normal CONJUNCTIVA: Yes conjunctivae normal Neck/C-Spine: COMMON NORMALS: full ROM and supple Chest: COMMONS NORMALS: normal inspection of the chest and normal palpation of entire chest wall Resp: COMMON NORMALS: normal respiratory effort, No retractions, No use of accessory muscles and clear to auscultation bilaterally AUSCULTATION: clear to auscultation bilaterally Cardio: COMMON NORMALS: regular rate, regular rhythm and No murmurs present (Cardio) RATE: regular rate RHYTHM: regular rhythm GI: COMMON NORMALS: Normal to inspection, nondistended, normoactive bowel sounds present, Soft to palpation, non-tender and no masses PALPATION: Yes Soft to palpation Extremity: COMMON NORMALS: normal to inspection and full ROM Neuro: COMMON NORMALS: patient oriented x3, moves all extremities and no focal motor deficits Psych: COMMON NORMALS: mental status grossly normal, Normal thought process present and cooperative THOUGHT PROCESS: Normal thought process present Skin: COMMON NORMALS: no rashes or lesions noted and no wounds GENERAL SKIN EXAM: no rashes or lesions noted Course 2 Vital Signs: Vital signs: Vital Signs Temperature 98.3 F 11/06/23 15:12 Pulse Rate 71 11/06/23 18:30 Respiratory Rate 12 11/06/23 18:30 Blood Pressure 160/93 11/06/23 15:12 Pulse Oximetry 93 11/06/23 18:30 Oxygen Delivery Me thod Room Air 11/06/23 15:12 MDM - Chest Pain Medical Decision Making Patient presents here with chest pain has been chest pain-free here his initial troponin here is negative EKG is normal patient's care turned over to Dr. Gil he has no signs of PE or dissection Medical Records I reviewed the patient's medical records. Lab Data I reviewed the patient's lab results. 11/06/23 15:43 11/06/23 15:43 Radiology Impressions Chest X-Ray 11/06/23 15:04 IMPRESSION: No acute thoracic pathology. Laboratory Results WBC 4.84 10^3/uL (3.29-11.43) 11/06/23 15:43 RBC 5.05 10^6/uL (3.85-5.65) 11/06/23 15:43 Hgb 15.20 g/dL (11.27-16.99) 11/06/23 15:43 Hct 46.1 % (37-53) 11/06/23 15:43 MCV 91.3 fl (82-101) 11/06/23 15:43 MCH 30.1 pg (27-33) 11/06/23 15:43 MCHC 33.0 g/dL (30-55) 11/06/23 15:43 RDW 12.4 % (12.1-15.1) 11/06/23 15:43 Plt Count 126 10^3/cmm (157-399) L 11/06/23 15:43 MPV 10.6 fL (7.4-10.4) H 11/06/23 15:43 Neut % (Auto) 66.3 % 11/06/23 15:43 Lymph % (Auto) 20.2 % 11/06/23 15:43 [place] % (Auto) 7.9 % 11/06/23 15:43 Eos % (Auto) 5.2 % 11/06/23 15:43 Baso % (Auto) 0.4 % 11/06/23 15:43 Neut # (Auto) 3.21 10^3/uL (1.8-7.7) 11/06/23 15:43 Lymph # (Auto) 1.0 10^3/uL (0.8-4.8) 11/06/23 15:43 [place] # (Auto) 0.4 10^3/uL (0.2-0.9) 11/06/23 15:43 Eos # (Auto) 0.3 10^3/uL (0.0-0.8) 11/06/23 15:43 Baso # (Auto) 0.0 10^3/uL (0.0-0.1) 11/06/23 15:43 Nucleated RBC % (auto) 0 % 11/06/23 15:43 Nucleated RBCs # 0.0 /100WBC 11/06/23 15:43 PT 13.80 SECONDS (12.1-14.9) 11/06/23 15:43 INR 1.03 (0.8-1.2) 11/06/23 15:43 Sodium 139 mmol/L (136-145) 11/06/23 15:43 Potassium 3.8 mmol/L (3.5-5.1) 11/06/23 15:43 Chloride 102 mmol/L (98-107) 11/06/23 15:43 Carbon Dioxide 28 mmol/L (22-29) 11/06/23 15:43 Anion Gap 12.8 (5-19) 11/06/23 15:43 BUN 20 mg/dL (6-20) 11/06/23 15:43 Creatinine 1.0 mg/dL (0.7-1.2) 11/06/23 15:43 GFR Calculation 78.5 mL/min (90-130) L 11/06/23 15:43 Glucose 143 mg/dL (65-115) H 11/06/23 15:43 Calculated Osmolality 293 mOsm/kg (285-295) 11/06/23 15:43 Calcium 9.0 mg/dL (8.5-10.5) 11/06/23 15:43 Total Bilirubin 0.3 mg/dL (0.15-1.2) 11/06/23 15:43 AST 17 U/L (0-40) 11/06/23 15:43 ALT 23 U/L (0-41) 11/06/23 15:43 Alkaline Phosphatase 90 U/L (40-130) 11/06/23 15:43 Troponin T Baseline 10 ng/L (0-15) 11/06/23 15:43 Troponin T 120 Minute 38.07 ng/L (0-15) H 11/06/23 18:25 Delta Troponin T 28.07 ABS# (0-10) H* 11/06/23 18:25 Total Protein 7.4 g/dL (6.6-8.7) 11/06/23 15:43 Albumin 4.2 g/dL (3.5-5.2) 11/06/23 15:43 Globulin 3.2 g/dL (1.3-4.6) 11/06/23 15:43 Lipase 26 U/L (13-60) 11/06/23 15:43 All radiology interpretation(s) finalized by discharge Discharge Plan Discharge Patient Disposition: Placed in Observation Clinical Impression: Non-ST elevated myocardial infarction (non-STEMI) Condition: Stable Prescriptions: No Action hydrocodone-acetaminophen 5-325 mg tablet 1 tab PO Q8H PRN coenzyme Q10 100 mg capsule 100 mg PO DAILY clopidogrel 75 mg tablet 75 mg PO DAILY Qty: 30 11RF valsartan 160 mg tablet See Rx Instructions .ROUTE .COMPLEX Qty: 30 2RF Dose Instruction: Take 1 tablet by mouth once daily Rx Instructions: Take 1 tablet by mouth once daily amlodipine 5 mg tablet See Rx Instructions .ROUTE .COMPLEX Qty: 30 2RF Dose Instruction: Take 1 tablet by mouth once daily Rx Instructions: Take 1 tablet by mouth once daily furosemide 20 mg tablet See Rx Instructions .ROUTE .COMPLEX Qty: 30 3RF Dose Instruction: Take 1 tablet by mouth once daily Rx Instructions: Take 1 tablet by mouth once daily atorvastatin 40 mg tablet See Rx Instructions .ROUTE .COMPLEX Qty: 30 3RF Dose Instruction: TAKE 1 TABLET BY MOUTH AT BEDTIME Rx Instructions: TAKE 1 TABLET BY MOUTH AT BEDTIME Eliquis 5 mg tablet See Rx Instructions .ROUTE .COMPLEX Qty: 180 3RF Dose Instruction: Take 1 tablet by mouth twice daily Rx Instructions: Take 1 tablet by mouth twice daily metoprolol tartrate 75 mg tablet See Rx Instructions .ROUTE .COMPLEX Qty: 180 3RF Dose Instruction: Take 1 tablet by mouth twice daily Rx Instructions: Take 1 tablet by mouth twice daily nitroglycerin 0.4 mg tablet, sublingual 0.4 mg sublingual Q5M PRN (Reason: chest pain) Qty: 60 0RF Rx Instructions: do not exceed 3 doses per episode clonidine HCl 0.1 mg tablet 0.1 mg PO BID PRN (Reason: Hypertension) triamcinolone acetonide 0.1 % cream 1 applic topical BID PRN (Reason: Rash) ibuprofen 200 mg Capsule 400 mg PO Q6H PRN (Reason: Pain) Referrals: Winsome Carlson MD [Primary Care Provider] - Coding Level of Care Code ED Glass Tube Bender for Chg Fwd Documented by User: Michael Gil DO 11/06/23 19:49 HPI - Chest Pain 2 General: Chief Complaint: Chest Pain Stated Complaint: Chest pain hand numb sob jaw and neck Time Seen by Provider: 11/06/23 15:44 PFSH ED 2 PFSH: Medical History Atherosclerosis of coronary artery Hypertension Dyslipidemia Smoker Surgical History History of surgery on left wrist cyst removed History of arthroscopic surgery of shoulder right 2013 Family History Mother Cancer Hypertension Grandmother Diabetes Social History Smoking and tobacco/nicotine status: never used tobacco/nicotine Second hand smoke exposure: No Alcohol intake: never Substance/Drug Use: never Adopted: No Caregiver/support person: No Lives independently: Yes Household members: significant other Housing: Manufactured/Mobile home Marital status: Number of children: 2 Highest education level completed: Some College, No Degree service: No Current occupational status: unemployed Pets and animals: No Course 2 Vital Signs: Vital signs: Vital Signs Temperature 98.3 F 11/06/23 15:12 Pulse Rate 71 11/06/23 18:30 Respiratory Rate 12 11/06/23 18:30 Blood Pressure 160/93 11/06/23 15:12 Pulse Oximetry 93 11/06/23 18:30 Oxygen Delivery Me thod Room Air 11/06/23 15:12 MDM - Chest Pain Medical Decision Making Patient presents here with chest pain has been chest pain-free here his initial troponin here is negative EKG is normal patient's care turned over to Dr. Gli he has no signs of PE or dissection Care transferred to myself at shift change awaiting on 2-hour troponin, 2-hour troponin came back elevated at 38 for delta of 28, patient is still pain-free at this time. Dr. Darby was consulted who agreed to place the patient in CSU obvious and start NSTEMI/ACS protocol, Dr. Zuniga was notified, Lab Data 11/06/23 15:43 11/06/23 15:43 Radiology Impressions Chest X-Ray 11/06/23 15:04 IMPRESSION: No acute thoracic pathology. Laboratory Results WBC 4.84 10^3/uL (3.29-11.43) 11/06/23 15:43 RBC 5.05 10^6/uL (3.85-5.65) 11/06/23 15:43 Hgb 15.20 g/dL (11.27-16.99) 11/06/23 15:43 Hct 46.1 % (37-53) 11/06/23 15:43 MCV 91.3 fl (82-101) 11/06/23 15:43 MCH 30.1 pg (27-33) 11/06/23 15:43 MCHC 33.0 g/dL (30-55) 11/06/23 15:43 RDW 12.4 % (12.1-15.1) 11/06/23 15:43 Plt Count 126 10^3/cmm (157-399) L 11/06/23 15:43 MPV 10.6 fL (7.4-10.4) H 11/06/23 15:43 Neut % (Auto) 66.3 % 11/06/23 15:43 Lymph % (Auto) 20.2 % 11/06/23 15:43 [place] % (Auto) 7.9 % 11/06/23 15:43 Eos % (Auto) 5.2 % 11/06/23 15:43 Baso % (Auto) 0.4 % 11/06/23 15:43 Neut # (Auto) 3.21 10^3/uL (1.8-7.7) 11/06/23 15:43 Lymph # (Auto) 1.0 10^3/uL (0.8-4.8) 11/06/23 15:43 [place] # (Auto) 0.4 10^3/uL (0.2-0.9) 11/06/23 15:43 Eos # (Auto) 0.3 10^3/uL (0.0-0.8) 11/06/23 15:43 Baso # (Auto) 0.0 10^3/uL (0.0-0.1) 11/06/23 15:43 Nucleated RBC % (auto) 0 % 11/06/23 15:43 Nucleated RBCs # 0.0 /100WBC 11/06/23 15:43 PT 13.80 SECONDS (12.1-14.9) 11/06/23 15:43 INR 1.03 (0.8-1.2) 11/06/23 15:43 Sodium 139 mmol/L (136-145) 11/06/23 15:43 Potassium 3.8 mmol/L (3.5-5.1) 11/06/23 15:43 Chloride 102 mmol/L (98-107) 11/06/23 15:43 Carbon Dioxide 28 mmol/L (22-29) 11/06/23 15:43 Anion Gap 12.8 (5-19) 11/06/23 15:43 BUN 20 mg/dL (6-20) 11/06/23 15:43 Creatinine 1.0 mg/dL (0.7-1.2) 11/06/23 15:43 GFR Calculation 78.5 mL/min (90-130) L 11/06/23 15:43 Glucose 143 mg/dL (65-115) H 11/06/23 15:43 Calculated Osmolality 293 mOsm/kg (285-295) 11/06/23 15:43 Calcium 9.0 mg/dL (8.5-10.5) 11/06/23 15:43 Total Bilirubin 0.3 mg/dL (0.15-1.2) 11/06/23 15:43 AST 17 U/L (0-40) 11/06/23 15:43 ALT 23 U/L (0-41) 11/06/23 15:43 Alkaline Phosphatase 90 U/L (40-130) 11/06/23 15:43 Troponin T Baseline 10 ng/L (0-15) 11/06/23 15:43 Troponin T 120 Minute 38.07 ng/L (0-15) H 11/06/23 18:25 Delta Troponin T 28.07 ABS# (0-10) H* 11/06/23 18:25 Total Protein 7.4 g/dL (6.6-8.7) 11/06/23 15:43 Albumin 4.2 g/dL (3.5-5.2) 11/06/23 15:43 Globulin 3.2 g/dL (1.3-4.6) 11/06/23 15:43 Lipase 26 U/L (13-60) 11/06/23 15:43 Discharge Plan Discharge Patient Disposition: Placed in Observation Clinical Impression: Non-ST elevated myocardial infarction (non-STEMI) Condition: Stable Prescriptions: No Action hydrocodone-acetaminophen 5-325 mg tablet 1 tab PO Q8H PRN coenzyme Q10 100 mg capsule 100 mg PO DAILY clopidogrel 75 mg tablet 75 mg PO DAILY Qty: 30 11RF valsartan 160 mg tablet See Rx Instructions .ROUTE .COMPLEX Qty: 30 2RF Dose Instruction: Take 1 tablet by mouth once daily Rx Instructions: Take 1 tablet by mouth once daily amlodipine 5 mg tablet See Rx Instructions .ROUTE .COMPLEX Qty: 30 2RF Dose Instruction: Take 1 tablet by mouth once daily Rx Instructions: Take 1 tablet by mouth once daily furosemide 20 mg tablet See Rx Instructions .ROUTE .COMPLEX Qty: 30 3RF Dose Instruction: Take 1 tablet by mouth once daily Rx Instructions: Take 1 tablet by mouth once daily atorvastatin 40 mg tablet See Rx Instructions .ROUTE .COMPLEX Qty: 30 3RF Dose Instruction: TAKE 1 TABLET BY MOUTH AT BEDTIME Rx Instructions: TAKE 1 TABLET BY MOUTH AT BEDTIME Eliquis 5 mg tablet See Rx Instructions .ROUTE .COMPLEX Qty: 180 3RF Dose Instruction: Take 1 tablet by mouth twice daily Rx Instructions: Take 1 tablet by mouth twice daily metoprolol tartrate 75 mg tablet See Rx Instructions .ROUTE .COMPLEX Qty: 180 3RF Dose Instruction: Take 1 tablet by mouth twice daily Rx Instructions: Take 1 tablet by mouth twice daily nitroglycerin 0.4 mg tablet, sublingual 0.4 mg sublingual Q5M PRN (Reason: chest pain) Qty: 60 0RF Rx Instructions: do not exceed 3 doses per episode clonidine HCl 0.1 mg tablet 0.1 mg PO BID PRN (Reason: Hypertension) triamcinolone acetonide 0.1 % cream 1 applic topical BID PRN (Reason: Rash) ibuprofen 200 mg Capsule 400 mg PO Q6H PRN (Reason: Pain) Referrals: Winsome Carlson MD [Primary Care Provider] - Coding Level of Care Code ED Glass Tube Bender for Efra Wolff
[2023-11-06 16:01] LABS: INR 1.03 (0.8-1.2)
[2023-11-06 16:08] LABS: Alanine Aminotransferase 23 U/L (0-41); Albumin Level 4.2 g/dL (3.5-5.2); Alkaline Phosphatase 90 U/L (40-130); Anion Gap 12.8 (5-19); Aspartate Amino Transferase 17 U/L (0-40); Blood Urea Nitrogen 20 mg/dL (6-20); Carbon Dioxide 28 mmol/L (22-29); Chloride 102 mmol/L (98-107); Creatinine Clr Calc Pharmacy 123.4337; Globulin 3.2 g/dL (1.3-4.6); Glomerular Filtration Rate 78.5 mL/min (90-130); Glucose 143 mg/dL (65-115); Lipase 26 U/L (13-60); Osmolality Calculated 293 mOsm/kg (285-295); Potassium 3.8 mmol/L (3.5-5.1); Sodium 139 mmol/L (136-145); Total Bilirubin 0.3 mg/dL (0.15-1.2); Total Protein 7.4 g/dL (6.6-8.7)
[2023-11-06 16:09] LABS: Troponin(5th) Baseline 10 ng/L (0-15)
[2023-11-06] MEDS: aspirin 81 mg Chew Tablet 324 MG PO (16:11)
--- NOTE | 2023-11-06 17:04 | ECG_ITS ---
[facility] Test Date: 2023-11-06 Pat Name: Raul Morales Department: Room: Gender: Male [employer]: : 1970 Requested By: Jorge Sim Order Number: [id number] Palak MD: Pat Zuniga M.D. Measurements Intervals [place] Rate: 65 P: 45 NC: 181 QRS: 42 QRSD: 103 T: 50 QT: 386 QTc: 404 Interpretive Statements SINUS RHYTHM WITH SINUS ARRHYTHMIA Compared to ECG 11/06/2023 15:06:31 Intraventricular conduction delay no longer present Electronically Signed On 11-07-2023 8:38:40 CDT by Pat Zuniga M.D. [id number]
[2023-11-06 19:04] LABS: Troponin 5 2HR 38.07 ng/L (0-15)
[2023-11-06 19:10] LABS: Troponin 5 2HR Delta 28.07 ABS# (0-10)
[2023-11-06] MEDS: clopidogrel 300 mg Tablet PO (20:03)
[2023-11-06] MEDS: heparin 5,000 unit/mL INJ 1 mL 4000 UNIT IVP (20:10)
--- NOTE | 2023-11-06 20:53 | P.HP_ITS ---
Providers/Chief Complaint 2 Admitting Physician: Annika Darby MD Primary Care Provider: Winsome Carlson MD Chief Complaint: Chest pain hand numb sob jaw and neck History of Present Illness Raul Morales is a 52 year old male With past medical history of hypertension, dyslipidemia, smoker, CAD status post PCI of ramus artery 2021, chronically on Eliquis secondary to A-fib presented to the hospital today with complaints of chest pain. 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 Pain was in the center of his chest and radiating down his right arm and also radiated up to his jaw. He felt a pressure in his jaw. He felt mildly short of breath at that time however was not nauseous. He went home took a nitro and felt better. Subsequently while he was watching TV the same chest pain started again and therefore patient took a second nitro. Pain got better then he came to the ER. In the ER it happened for the third time and he was given nitro and chewable aspirin. At this time when being seen patient denies any chest pain. He appears anxious and worried. is at the bedside. He has taken all his medications for the day the morning and evening doses. Denies chest pain shortness of breath nausea vomiting diarrhea constipation any other symptoms at this time. Medications/Allergies Home Medications Medication Instructions Recorded Confirmed Last Taken Type nitroglycerin 0.4 mg sublingual 0.4 mg sublingual Q5M PRN chest 02/05/22 07/27/23 05/17/22 Rx tablet pain #60 tabs clonidine HCl 0.1 mg tablet 0.1 mg PO BID PRN Hypertension 05/18/22 07/27/23 Unknown History ibuprofen 200 mg capsule 400 mg PO Q6H PRN Pain 05/18/22 07/27/23 Unknown History triamcinolone acetonide 0.1 % 1 applic topical BID PRN Rash 05/18/22 03/11/23 Unknown History topical cream coenzyme Q10 100 mg capsule 100 mg PO DAILY 01/19/23 07/27/23 Unknown History clopidogrel 75 mg tablet 75 mg PO DAILY #30 tabs 05/11/23 07/27/23 Unknown Rx valsartan 160 mg tablet See Rx Instructions .Route 07/06/23 07/27/23 Unknown Rx .COMPLEX #30 tabs hydrocodone 5 mg-acetaminophen 325 1 tab PO Q8H PRN 07/27/23 07/27/23 Unknown History mg tablet amlodipine 5 mg tablet See Rx Instructions .Route 08/23/23 Unknown Rx .COMPLEX #30 tabs apixaban 5 mg tablet (Eliquis) See Rx Instructions .Route 10/11/23 Unknown Rx .COMPLEX #180 tabs atorvastatin 40 mg tablet See Rx Instructions .Route 10/11/23 Unknown Rx .COMPLEX #30 tabs furosemide 20 mg tablet See Rx Instructions .Route 10/11/23 Unknown Rx .COMPLEX #30 tabs metoprolol tartrate 75 mg tablet See Rx Instructions .Route 10/11/23 Unknown Rx .COMPLEX #180 tabs Allergies Allergy/AdvReac Type Severity Reaction Status Date / Time simvastatin Allergy ADR-Muscle Verified 11/06/23 15:15 Pain PFSH Acute 2 PFSH: Medical History Atherosclerosis of coronary artery Hypertension Dyslipidemia Smoker Surgical History History of surgery on left wrist cyst removed History of arthroscopic surgery of shoulder right 2013 Family History Mother Cancer Hypertension Grandmother Diabetes Social History Smoking and tobacco/nicotine status: never used tobacco/nicotine Second hand smoke exposure: No Alcohol intake: never Substance/Drug Use: never Adopted: No Caregiver/support person: No Lives independently: Yes Household members: significant other Housing: Manufactured/Mobile home Marital status: Number of children: 2 Highest education level completed: Some College, No Degree service: No Current occupational status: unemployed Pets and animals: No Vitals/I&O/Wt Last Vital Signs Temp 98.3 F 11/06/23 15:12 Pulse 65 11/06/23 20:35 Resp 15 11/06/23 20:35 BP 161/93 11/06/23 20:35 Pulse Ox 92 11/06/23 20:35 O2 Del Method Room Air 11/06/23 20:19 Weight last 48 hrs Weight 136.078 kg Physical Exam 2 Narrative: General: Alert oriented x3, patient seen sitting up in bed appearing comfortable on room air at this time. HEENT: Normocephalic, atraumatic, EOMI, comfortably Cardio: Regular rate rhythm, normal S1-S2 Respiratory: Clear to auscultation bilaterally no wheezes no rhonchi. GI: Abdomen soft, nontender, nondistended, bowel sounds + Extremities: Pulses 2+, no edema, no cyanosis Data 11/06/23 15:43 11/06/23 15:43 A&P Assessment and plan (1) Essential hypertension: (2) Hypertension: (3) Stented coronary artery: (4) Atherosclerosis of coronary artery: (5) Non-ST elevated myocardial infarction (non-STEMI): (6) Atrial fibrillation: (7) Dyslipidemia: (8) Smoker: (9) Tobacco dependency: (10) Unstable angina: (11) Congestive heart failure: Plan #Unstable angina #CAD status post PCI 2020 with ROCAEL to ramus artery #Atrial fibrillation #GERD #Congestive heart failure #Chronic anticoagulation #Hypertension #Former smoker, quit 1 month ago -Continue aspirin, Plavix, heparin drip, atorvastatin 80, metoprolol 175 twice daily. Hold eliquis ? Initiate EKG nonischemic ? Initial troponin 10, delta troponin at 2 hours 28.07 ? Lipid profile, hemoglobin A1c, TSH, procalcitonin ordered ? Cardiology consulted ? N.p.o. at midnight for possible cath in a.m. ? Check PT/INR in a.m. ? DuoNeb 12 every 6 hours as needed ? Hold clonidine ? Continue valsartan, amlodipine ? Gentle fluid hydration with normal saline 75 cc/h in anticipation of angiogram in a.m. - Check echo Full code DVT prophylaxis: On heparin drip Attestations 2 Medical Necessity Statement*: Will require less than 2 midnight stay for evaluation and treatment of unstable angina Diagnoses Essential hypertension I10 Hypertension I10 Stented coronary artery Z95.5 Atherosclerosis of coronary artery I25.10 Non-ST elevated myocardial infarction (non-STEMI) I21.4 Atrial fibrillation I48.91 Dyslipidemia E78.5 Smoker F17.200 Tobacco dependency F17.200 Unstable angina I20.0 Congestive heart failure I50.9
--- NOTE | 2023-11-06 21:06 | P.CONIM_ITS ---
Providers/Reason For Consult 2 Consulting Physician/Specialty*: JT Zuniga MD/cardiology Reason for Consult*: Patient with chest pain and elevated troponin T Requesting Physician: Dr. Darby Attending Physician: Annika Darby MD Primary Care Provider: Winsome Carlson MD History of Present Illness History of Present Illness Raul Morales is a 52 year old male with a history of atherosclerotic heart disease, status post PCI, presenting with a prolonged episode of chest pain. He was found to have elevated troponin T with a 2-hour delta of 28. Cardiology consult is requested for further cardiac evaluation recommendations. This patient is known to have high blood pressure, dyslipidemia , ventricular arrhythmia and coronary artery disease. He had a PCI of the intermedius artery in May 2022. He apparently has been doing okay up until 11:00 this morning while he was at work, started having pain in the mid substernal region. The pain was radiating across the chest associated with some shortness of breath. He took 1 sublingual nitro which gave him some relief. The pain gradually eased off. Around 12 noon, he again started having the chest pain. Denies any the pain was around 8/10. Because of the recurrent episode of chest pain, he was brought to the emergency room. He had no other associated symptoms or radiation of pain. At the time of my examination, patient is pain-free. Since the coronary intervention in 2021, the patient has been doing okay. He had a Myocardial perfusion imaging last year, August which was essentially unremarkable. The angiogram in May 2022 revealed couple of 70% lesions in the PDA branch of the right coronary artery. Patient has no other relevant past medical history. He has been smoking a pack a day for more than 20 years. He quit smoking a month ago. He has a remote history of alcohol abuse and methamphetamine abuse. He quit both more than 5 years ago. His younger brother in his 30s of RV dysplasia,? Arrhythmogenic. His father had atrial fibrillation. Review of Systems 2 Narrative: CONSTITUTIONAL: No fever or chills. EYES: No blurring of vision or other visual disturbances lately. ENT: No hoarseness of voice, auditory disturbances or sore throat. CARDIOVASCULAR: As mentioned above. RESPIRATORY: No significant cough. GASTROINTESTINAL: No hematemesis or melena. GENITOURINARY: No dysuria or hematuria. INTEGUMENTARY: No skin rashes or history of skin cancer. NEURO: No transient ischemic attacks or amaurosis. PSYCHIATRIC: No history of psychosis or major depression. HEMATOLOGIC: No bleeding disorders or significant anemia. ENDOCRINE: No history of polyuria or polydipsia. MUSCULOSKELETAL: No recent joint pain or swelling. ALLERGY/IMMUNOLOGY: As mentioned above. Medications/Allergies Home Medications Medication Instructions Recorded Confirmed Last Taken Type nitroglycerin 0.4 mg sublingual 0.4 mg sublingual Q5M PRN chest 02/05/22 11/06/23 05/17/22 Rx tablet pain #60 tabs clonidine HCl 0.1 mg tablet 0.1 mg PO BID PRN Hypertension 05/18/22 11/06/23 Unknown History ibuprofen 200 mg capsule 400 mg PO Q6H PRN Pain 05/18/22 11/06/23 Unknown History coenzyme Q10 100 mg capsule 100 mg PO DAILY 01/19/23 11/06/23 Unknown History clopidogrel 75 mg tablet 75 mg PO DAILY #30 tabs 05/11/23 11/06/23 Unknown Rx valsartan 160 mg tablet See Rx Instructions .Route 07/06/23 11/06/23 Unknown Rx .COMPLEX #30 tabs hydrocodone 5 mg-acetaminophen 325 1 tab PO Q8H PRN Pain 07/27/23 11/06/23 Unknown History mg tablet amlodipine 5 mg tablet See Rx Instructions .Route 08/23/23 11/06/23 Unknown Rx .COMPLEX #30 tabs apixaban 5 mg tablet (Eliquis) See Rx Instructions .Route 10/11/23 11/06/23 Unknown Rx .COMPLEX #180 tabs atorvastatin 40 mg tablet See Rx Instructions .Route 10/11/23 11/06/23 Unknown Rx .COMPLEX #30 tabs furosemide 20 mg tablet See Rx Instructions .Route 10/11/23 11/06/23 Unknown Rx .COMPLEX #30 tabs metoprolol tartrate 75 mg tablet See Rx Instructions .Route 10/11/23 11/06/23 Unknown Rx .COMPLEX #180 tabs Allergies Allergy/AdvReac Type Severity Reaction Status Date / Time simvastatin Allergy ADR-Muscle Verified 11/06/23 15:15 Pain PFSH Acute 2 PFSH: Medical History Atherosclerosis of coronary artery Hypertension Dyslipidemia Smoker Surgical History History of surgery on left wrist cyst removed History of arthroscopic surgery of shoulder right 2014 Family History Mother Cancer Hypertension Grandmother Diabetes Social History Smoking and tobacco/nicotine status: never used tobacco/nicotine Second hand smoke exposure: No Alcohol intake: never Substance/Drug Use: never Adopted: No Caregiver/support person: No Lives independently: Yes Household members: significant other Housing: Manufactured/Mobile home Marital status: Number of children: 2 Highest education level completed: Some College, No Degree service: No Current occupational status: unemployed Pets and animals: No Vitals/I&O/Wt Last Vital Signs Temp 98.3 F 11/06/23 15:12 Pulse 65 11/06/23 20:35 Resp 15 11/06/23 20:35 BP 161/93 11/06/23 20:35 Pulse Ox 92 11/06/23 20:35 O2 Del Method Room Air 11/06/23 20:19 Weight last 48 hrs Weight 300 lb Physical Exam 2 Narrative: GENERAL: The patient is alert and oriented times three. Not in any acute distress. HEENT: No significant pallor, icterus or lymphadenopathy.Oral cavity: There are no mucous membrane lesions. NECK: Trachea appears to be central. No masses noted. No JVD or thyromegaly appreciated. RESPIRATORY: Chest is symmetrical. No intercostals muscle retraction or any accessory muscle activation. There is no chest wall tenderness. Breath sounds are heard bilaterally. No rales or rhonchi heard. No evidence of any consolidation. BREASTS: Deferred. HEART: The heart sounds are normal. No S3 or S4. No significant murmurs. No pericardial rub ABDOMEN: No vessel pulsations or distention. No tenderness. No organomegaly appreciated. Bowel sounds are normally heard. : Deferred. RECTAL: Deferred. LYMPHATIC: No lymphadenopathy noted in the neck. EXTREMITIES: No edema or cyanosis. No clubbing. MUSCULOSKELETAL: No acute joint deformities or swelling SKIN: There are no significant rashes or ecchymosis NEUROPSYCHIATRIC: The patient is alert and oriented x3. Appears to be in a good mood. No tremors or rigidity noted. Data 11/06/23 15:43 11/06/23 15:43 Other Labs: Laboratory Last Values WBC 4.84 10^3/uL (3.29-11.43) 11/06/23 15:43 RBC 5.05 10^6/uL (3.85-5.65) 11/06/23 15:43 Hgb 15.20 g/dL (11.27-16.99) 11/06/23 15:43 Hct 46.1 % (37-53) 11/06/23 15:43 MCV 91.3 fl (82-101) 11/06/23 15:43 MCH 30.1 pg (27-33) 11/06/23 15:43 MCHC 33.0 g/dL (30-55) 11/06/23 15:43 RDW 12.4 % (12.1-15.1) 11/06/23 15:43 Plt Count 126 10^3/cmm (157-399) L 11/06/23 15:43 MPV 10.6 fL (7.4-10.4) H 11/06/23 15:43 Neut % (Auto) 66.3 % 11/06/23 15:43 Lymph % (Auto) 20.2 % 11/06/23 15:43 [place] % (Auto) 7.9 % 11/06/23 15:43 Eos % (Auto) 5.2 % 11/06/23 15:43 Baso % (Auto) 0.4 % 11/06/23 15:43 Neut # (Auto) 3.21 10^3/uL (1.8-7.7) 11/06/23 15:43 Lymph # (Auto) 1.0 10^3/uL (0.8-4.8) 11/06/23 15:43 [place] # (Auto) 0.4 10^3/uL (0.2-0.9) 11/06/23 15:43 Eos # (Auto) 0.3 10^3/uL (0.0-0.8) 11/06/23 15:43 Baso # (Auto) 0.0 10^3/uL (0.0-0.1) 11/06/23 15:43 Nucleated RBC % (auto) 0 % 11/06/23 15:43 Nucleated RBCs # 0.0 /100WBC 11/06/23 15:43 PT 13.80 SECONDS (12.1-14.9) 11/06/23 15:43 INR 1.03 (0.8-1.2) 11/06/23 15:43 Sodium 139 mmol/L (136-145) 11/06/23 15:43 Potassium 3.8 mmol/L (3.5-5.1) 11/06/23 15:43 Chloride 102 mmol/L (98-107) 11/06/23 15:43 Carbon Dioxide 28 mmol/L (22-29) 11/06/23 15:43 Anion Gap 12.8 (5-19) 11/06/23 15:43 BUN 20 mg/dL (6-20) 11/06/23 15:43 Creatinine 1.0 mg/dL (0.7-1.2) 11/06/23 15:43 GFR Calculation 78.5 mL/min (90-130) L 11/06/23 15:43 Glucose 143 mg/dL (65-115) H 11/06/23 15:43 Calculated Osmolality 293 mOsm/kg (285-295) 11/06/23 15:43 Calcium 9.0 mg/dL (8.5-10.5) 11/06/23 15:43 Total Bilirubin 0.3 mg/dL (0.15-1.2) 11/06/23 15:43 AST 17 U/L (0-40) 11/06/23 15:43 ALT 23 U/L (0-41) 11/06/23 15:43 Alkaline Phosphatase 90 U/L (40-130) 11/06/23 15:43 Troponin T Baseline 10 ng/L (0-15) 11/06/23 15:43 Troponin T 120 Minute 38.07 ng/L (0-15) H 11/06/23 18:25 Delta Troponin T 28.07 ABS# (0-10) H* 11/06/23 18:25 Total Protein 7.4 g/dL (6.6-8.7) 11/06/23 15:43 Albumin 4.2 g/dL (3.5-5.2) 11/06/23 15:43 Globulin 3.2 g/dL (1.3-4.6) 11/06/23 15:43 Lipase 26 U/L (13-60) 11/06/23 15:43 Other data: EKG on 11/06/2023 Normal sinus rhythm with a sinus arrhythmia. Normal ST Ts. Myocardial perfusion imaging on 08/30/2022 1. Small sized prior infarct in the LAD territory with minimal monica-infarct ischemia. 2. LV systolic function is normal. Cardiac catheterization on 05/29/2022 * Heavy smoker with other risk factors with new onset angina, very typical discomfort. Angiography reveals right coronary artery dominance. The left main trifurcates into the left anterior descending, circumflex and ramus intermedius arteries. The LAD contains mild diffuse luminal irregularities throughout and in the midportion some more severe disease up to 30 or 40%. There is a large ramus intermedius artery with a 99% stenosis proximally. The circumflex is relatively small and contains mild diffuse luminal irregularities. The right coronary artery is a very large dominant vessel and ends distally as the posterior left ventricular branch and posterior descending artery. There are minor diffuse luminal irregularities. There is a 70% ostial posterior descending artery stenosis and then more distally multiple stenoses from 50 to 70%.. Echocardiogram on 05/18/2022 Examination is poor without echo contrast. Echo contrast reveals the left ventricular size and function are likely normal. The ejection fraction is probably 55 to 60%. Grade 1 diastolic dysfunction. There are no prior echocardiogram studies to compare. A&P Assessment and plan (1) Atherosclerotic heart disease of [place] coronary artery with unstable angina pectoris: Patient may be treated with beta-wilda, aspirin, Plavix, subcu Lovenox and statin. A limited 2D echocardiogram would be helpful to evaluate LV function and rule out any other pathology. Qualifiers: [place] vs. transplanted heart: [place] heart Qualified Code(s): I25.110 - Atherosclerotic heart disease of [place] coronary artery with unstable angina pectoris (2) Essential hypertension: Currently normotensive. May continue on the current medications. (3) Dyslipidemia: Continue on the current medications. (4) Non-ST elevated myocardial infarction (non-STEMI): As mentioned above. Patient requires a cardiac catheterization to further evaluate his coronary status. (5) Atrial fibrillation: Patient took his last dose of Eliquis this evening. The Eliquis may be held at this point. Patient may be treated with a subcu Lovenox. Other medications may be continued. Qualifiers: Atrial fibrillation type: paroxysmal Qualified Code(s): I48.0 - Paroxysmal atrial fibrillation Plan Patient requires a cardiac catheterization to further evaluate the coronary status. He may have to wait for 48 hours because of the Eliquis. Based on the clinical progress, further recommendations will be made. Thank you for the opportunity to evaluate this patient and make these recommendations Consult Attestations 2 Medical Necessity Statement: Patient requires continued hospital stay for close monitoring and further management Coding Level of Care Code 68170 Diagnoses Atherosclerosis of [place] coronary artery of [place] heart with unstable angina pectoris I25.110 [place] vs. transplanted heart: [place] heart Essential hypertension I10 Dyslipidemia E78.5 Non-ST elevated myocardial infarction (non-STEMI) I21.4 Paroxysmal atrial fibrillation I48.0 Atrial fibrillation type: paroxysmal
--- NOTE | 2023-11-06 21:09 | ECG_ITS ---
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 Measurements Intervals [place] Rate: 64 P: 42 MI: 188 QRS: 36 QRSD: 100 T: 39 QT: 377 QTc: 389 Interpretive Statements SINUS RHYTHM WITH SINUS ARRHYTHMIA Compared to ECG 11/06/2023 17:46:11 No significant changes Electronically Signed On 11-07-2023 8:40:19 CDT by Pat Zuniga M.D. [id number]
[2023-11-06 21:26] LABS: Procalcitonin 0.06 ng/mL (0-0.5); Thyroid Stimulating Hormone 1.04 uIU/mL (0.27-4.20)
[2023-11-06 21:34] LABS: Estmated Average Glucose 128; Hemoglobin A1C 6.1 % (4.0-6.0)
[2023-11-06 21:37] LABS: Chol HDL Ratio 4.22 mg/dL (1.0-5.00); Cholesterol 156 mg/dL (0-200); HDL Cholesterol 37 mg/dL (60-100); LDL Cholesterol Calculated 75 mg/dL (50-129); LDL HDL Ratio 2.03 RATIO (0.00-3.22); Triglycerides 222 mg/dL (0-150)
[2023-11-06] MEDS: sodium chloride 0.9% 1,000 ML 75 ML IV (21:46)
[2023-11-06] MEDS: pantoprazole 40 mg SDV IVP (22:07)
--- NOTE | 2023-11-06 22:17 | PC.NURSE ---
patient states he took his own eliquis at 6 pm, will start heparin gtt at 0600 am per telephone order from Dr Zuniga
[2023-11-07] VITALS (11 sets, daily range): BP systolic 101–140; BP diastolic 61–86; PULSE 59–77; RESP 12–22; TEMP 36.7–37.1; O2SAT 90–95
[2023-11-07 05:26] LABS: Basophils % 0.6 %; Eosinophils # 0.3 10^3/uL (0.0-0.8); Hematocrit 44.2 % (37-53); Lymphocytes # 1.1 10^3/uL (0.8-4.8); Lymphocytes % 22.6 %; Mean Corpuscular HGB Conc 33.3 g/dL (30-55); Mean Corpuscular Hemoglobin 30.4 pg (27-33); Mean Corpuscular Volume 91.3 fl (82-101); Mean Platelet Volume 10.9 fL (7.4-10.4); Monocytes # 0.5 10^3/uL (0.2-0.9); Monocytes % 10.2 %; Neutrophils # 3.07 10^3/uL (1.8-7.7); Neutrophils % 61.4 %; Nucleated Red Blood Cells % 0 %; Platelet Count 103 10^3/cmm (157-399); Red Blood Count 4.84 10^6/uL (3.85-5.65); Red Cell Distribution Width 12.5 % (12.1-15.1)
[2023-11-07 05:39] LABS: Albumin Level 3.8 g/dL (3.5-5.2); Alkaline Phosphatase 81 U/L (40-130); Blood Urea Nitrogen 18 mg/dL (6-20); Calcium 8.6 mg/dL (8.5-10.5); Carbon Dioxide 27 mmol/L (22-29); Chloride 104 mmol/L (98-107); Creatinine Clr Calc Pharmacy 123.8771; Globulin 2.7 g/dL (1.3-4.6); Glomerular Filtration Rate 78.5 mL/min (90-130); Glucose 102 mg/dL (65-115); Magnesium 1.9 mg/dL (1.7-2.3); Osmolality Calculated 292 mOsm/kg (285-295); Sodium 140 mmol/L (136-145); Total Bilirubin 0.3 mg/dL (0.15-1.2); Total Protein 6.5 g/dL (6.6-8.7)
[2023-11-07 05:40] LABS: Alanine Aminotransferase 19 U/L (0-41); Anion Gap 13.5 (5-19); Aspartate Amino Transferase 22 U/L (0-40); Potassium 4.5 mmol/L (3.5-5.1)
[2023-11-07] MEDS: losartan 50 mg Tablet PO (06:22)
[2023-11-07] MEDS: heparin drip 25,000 UNIT/500 ML PREMIX 38 UNIT IV (06:22)
--- NOTE | 2023-11-07 08:11 | P.PN_ITS ---
Subjective 2 Subjective: Patient is stable. No chest pain. Vitals/I&O/Wt Last Vital Signs Temp 98.3 F 11/07/23 07:01 Pulse 76 11/07/23 07:46 Resp 16 11/07/23 07:46 BP 140/86 11/07/23 07:01 Pulse Ox 95 11/07/23 07:46 O2 Del Method Room Air 11/07/23 07:46 11/06/23 11/07/23 11/07/23 22:59 06:59 14:59 Output Total 0 / 0 0 / 0 Balance 0 / 0 0 / 0 Weight last 48 hrs Weight 302 lb Weight 312 lb 9.6 oz Weight 300 lb Physical Exam 2 Narrative: GENERAL: Patient is alert, awake and oriented x3. [] NECK: No jugular vein distension. [] HEENT: No cyanosis. No icterus. No pallor. [] HEART: Regular S1 and S2. No murmur, rub or gallop. [] LUNGS: Clear to auscultate bilaterally. [] CENTRAL NERVOUS SYSTEM: Grossly nonfocal. [] EXTREMITIES: Lower extremities with 1+ edema bilaterally Data 11/08/23 08:08 11/08/23 08:08 A&P Assessment and plan (1) Non-ST elevated myocardial infarction (non-STEMI): (2) Atherosclerotic heart disease of [place] coronary artery with unstable angina pectoris: Qualifiers: [place] vs. transplanted heart: [place] heart Qualified Code(s): I25.110 - Atherosclerotic heart disease of [place] coronary artery with unstable angina pectoris (3) Essential hypertension: (4) Dyslipidemia: (5) Atrial fibrillation: Qualifiers: Atrial fibrillation type: paroxysmal Qualified Code(s): I48.0 - Paroxysmal atrial fibrillation Plan Patient has non-ST elevation MD. Echo shows normal LV systolic function. At this time chest pain-free. Continue aspirin. Continue holding Eliquis. Continue heparin drip. N.p.o. past midnight. Plan for coronary angiogram tomorrow. Thank you for involving us with care of this patient. We will continue to follow. Please call with questions. Attestations 2 Medical Necessity Statement*: Care expected to cross 2 midnights. Coding Level of Care Code Acute Code for [facility] Diagnoses Non-ST elevated myocardial infarction (non-STEMI) I21.4 Atherosclerosis of [place] coronary artery of [place] heart with unstable angina pectoris I25.110 [place] vs. transplanted heart: [place] heart Essential hypertension I10 Dyslipidemia E78.5 Paroxysmal atrial fibrillation I48.0 Atrial fibrillation type: paroxysmal
[2023-11-07] MEDS: metoprolol tartrate 25 mg Tablet 75 MG PO ×2 (09:25→17:08)
[2023-11-07] MEDS: aspirin 81 mg EC Tablet PO (09:25)
[2023-11-07] MEDS: clopidogrel 75 mg Tablet PO (09:25)
[2023-11-07 10:21] LABS: Iron 44 ug/dL (59-158)
[2023-11-07 10:32] LABS: Percent Saturation 16.7 % (20-50); Total Iron Binding Capacity 262 mcg/dl; Unsaturated Iron Binding 218 ug/dL (112-347)
[2023-11-07 10:36] LABS: Vitamin B12 342 pg/mL (232-1245)
--- NOTE | 2023-11-07 10:41 | USCV_ITS ---
Carmen Ellis Age: 52 Gender: M : 1970 Exam Date: 11/07/2023 13:01 Ordering Phys: Prabhakar Sanders MD Technologist: Exam Location: [facility] – [place] Indication: nstemi BP: 104 / 63 HR: 71 Rhythm: Sinus Technical Quality: Adequate MEASUREMENTS (Male / Female) Normal Values 2D ECHO LV Diastolic Diameter PLAX 5.0 cm 4.2 - 5.9 / 3.9 - 5.3 cm IVS Diastolic Thickness 1.0 cm 0.6 - 1.0 / 0.6 - 0.9 cm IVS Systolic Thickness 1.7 cm LVPW Diastolic Thickness 1.4 cm 0.6 - 1.0 / 0.6 - 0.9 cm LVPW Systolic Thickness 1.6 cm LVOT Diameter 2.0 cm LV Ejection Fraction 2D Teich 65.5 % LV Ejection Fraction MOD 2C 47.5 % LV Ejection Fraction 2C AL 48.8 % LA Diameter 3.3 cm RA Systolic Volume 4C AL 38.7 ml RA Systolic Volume 4C MOD 37.7 ml LA Sys Volume AL 65.8 cm cubed LA Sys Volume Index AL 24.8 cm cubed/m squared Aorta at Sinotubular Diameter 3.0 cm IVC Diameter 2.0 cm M-MODE LA Ao Ratio MM 1.0 AV Cusp Separation MM 2.5 cm DOPPLER AV Peak Velocity 138.0 cm/s LVOT Peak Velocity 113.0 cm/s AV Area Cont Eq vti 2.7 cm squared AV Area Cont Eq pk 2.6 cm squared MV Peak Velocity 82.0 cm/s MV Area PHT 4.0 cm squared TV Peak Velocity 169.5 cm/s TR Peak Velocity 208.0 cm/s TR Peak Gradient 17.3 mmHg TV Peak E Velocity 100.0 cm/s Right Atrial Pressure 3.0 mmHg Pulmonary Artery Systolic Pressu 20.3 mmHg PV Peak Velocity 95.0 cm/s FINDINGS Left Ventricle Left ventricle is normal in size. LV systolic function is normal with EF of 55-60%. No regional wall motion abnormalities are seen. Right Ventricle Normal in size and function. Right Atrium Normal in size. Left Atrium Normal in size. Mitral Valve Structurally normal mitral valve. Trace mitral regurgitation. Aortic Valve Grossly normal. No significant stenosis or regurgitation. Tricuspid Valve Insufficient TR jet to calculate RVSP. Pulmonic Valve Not well visualized Pericardium Normal Aorta Normal in size IVC Appears to be normal CONCLUSIONS LV systolic function is normal with EF of 55-60% Trace mitral regurgitation Compared to prior echocardiogram from 2021, no significant changes are seen Riccardo Marie MD (Electronically Signed) Final Date: 07 Nov 2023 15:11 S
[2023-11-07] MEDS: sodium chloride 0.9% 1,000 ML 75 ML IV ×2 (10:50→22:47)
[2023-11-07 14:04] LABS: Partial Thromboplastin Time 132.7 SECONDS (23.9-36.7)
--- NOTE | 2023-11-07 14:53 | P.PN_ITS ---
Subjective 2 Subjective: Admitted overnight. H&P and labs appreciated. Patient sitting comfortably in bed. Denies any further chest pain. Vitals appreciated. Denies any nausea vomiting, headache. Lab work appreciated. Vitals/I&O/Wt Last Vital Signs Temp 98.4 F 11/07/23 10:57 Pulse 68 11/07/23 10:57 Resp 22 H 11/07/23 10:57 BP 104/63 11/07/23 10:57 Pulse Ox 94 11/07/23 10:57 O2 Del Method Room Air 11/07/23 10:57 11/06/23 11/07/23 11/07/23 22:59 06:59 14:59 Intake Total 1520.2 / 1520.2 Output Total 0 / 0 0 / 0 300 / 300 Balance 0 / 0 0 / 0 1220.2 / 1220.2 Weight last 48 hrs Weight 136.985 kg Weight 141.793 kg Weight 136.078 kg Physical Exam 2 Narrative: General: Alert oriented x3, patient seen sitting up in bed appearing comfortable on room air at this time. HEENT: Normocephalic, atraumatic, EOMI, comfortably Cardio: Regular rate rhythm, normal S1-S2 Respiratory: Clear to auscultation bilaterally no wheezes no rhonchi. GI: Abdomen soft, nontender, nondistended, bowel sounds + Extremities: Pulses 2+, no edema, no cyanosis Data 11/07/23 05:15 11/07/23 05:15 A&P Assessment and plan (1) Non-ST elevated myocardial infarction (non-STEMI): Cardiology has been consulted. Appreciate troponin cycled. Repeat troponin levels in AM. Continue with heparin drip. Plan for cardiac angiogram in AM. Continue with aspirin, Plavix, statin, beta-wilda. Check echocardiogram. Appreciate A1c, lipid panel. N.p.o. after midnight. (2) Atrial fibrillation: Heart rate so far stable. Continue with home dose of metoprolol. Switch Eliquis to heparin drip for now Qualifiers: Atrial fibrillation type: paroxysmal Qualified Code(s): I48.0 - Paroxysmal atrial fibrillation (3) Essential hypertension: Goal blood pressure less than 140/90 mmHg. Pressures at goal for now. Continue with home dose of metoprolol and Cozaar. (4) Stented coronary artery: (5) Atherosclerosis of coronary artery: (6) Dyslipidemia: (7) Smoker: (8) Tobacco dependency: (9) Unstable angina: (10) Congestive heart failure: Plan Type 2 diabetes mellitus: No past medical history. A1c 6.1. Patient will do okay with lifestyle modification. For now we will change her diet to carb consistent. Full code Cardiac diet carb consistent, n.p.o. after midnight. Heparin drip will be sufficient for DVT prophylaxis Protonix for PUD prophylaxis Attestations 2 Medical Necessity Statement*: Raul Morales is being changed to inpatient status as stay will now exceed 2 midnights. Ongoing hospital care is necessary for non-ST elevation CA who is on home dose of Eliquis while cardiac angiogram is awaited Diagnoses Non-ST elevated myocardial infarction (non-STEMI) I21.4 Paroxysmal atrial fibrillation I48.0 Atrial fibrillation type: paroxysmal Essential hypertension I10 Stented coronary artery Z95.5 Atherosclerosis of coronary artery I25.10 Dyslipidemia E78.5 Smoker F17.200 Tobacco dependency F17.200 Unstable angina I20.0 Congestive heart failure I50.9
[2023-11-07 18:49] LABS: Partial Thromboplastin Time 139.5 SECONDS (23.9-36.7)
[2023-11-07] MEDS: heparin drip 25,000 UNIT/500 ML PREMIX 27 UNIT IV (19:32)
[2023-11-07] MEDS: atorvastatin 40 mg Tablet 80 MG PO (20:15)
[2023-11-07] MEDS: pantoprazole 40 mg SDV IVP (20:16)
[2023-11-08] VITALS (57 sets, daily range): BP systolic 101–172; BP diastolic 65–105; PULSE 58–92; RESP 9–26; TEMP 36.6–36.9; O2SAT 74–97
[2023-11-08 01:30] LABS: Partial Thromboplastin Time 97.1 SECONDS (23.9-36.7)
--- NOTE | 2023-11-08 05:27 | XACV_ITS ---
Exam Room: [facility] Ht: 183 cm Wt: 137 kg BSA: 2.70 m2 Gender: Male : 1970 Any Known Allergies: Other Exam Priority: Routine Procedure(s): Procedure Description: Diagnostic procedure Procedure Description: PCI procedure Procedure Description: Drug Eluting Coronary Stent Procedure Description: PTCA Procedure Description: Miscellaneous Procedure Description: ACT Procedure Description: Coronary Angiography Diagnostic Cath Status: Urgent Diagnostic Findings * Left Main has mild luminal irregularities. * Circumflex has no significant disease. Has a large sized OM branches with patent LAD stent.. * Proximal LAD has moderate 40 to 50% stenosis. * Mid LAD is subtotally occluded with DINESH I-II flow. . * RCA has diffuse mild luminal irregularities. Posterior Descending Right: mild to moderate 40% ostial stenosis, DINESH: 3 flow. Has diffuse disease and PDA.. * Coronary angiography shows right dominance. PCI Status: Urgent PCI Indication: NSTE - ACS Interventional Findings * Procedure detail: We engaged the left main artery with XB 3.5 guide catheter. IV heparin was administered to maintain anticoagulation. Run-through wire was used to cross the mid LAD subtotal occlusion. We predilated the stenosis with 2.5 x 15 mm semicompliant balloon. This was followed by placement of 3.0 x 38 mm resolute Bijan drug-eluting stent. Following placement of stent, there was no reflow in the vessel and patient had chest pain symptoms. Nitroglycerin and Cardene was administered. This restored DINESH-3 flow. At this time guidewire and guide catheter were removed. Patient left the [employer] in a stable condition.. * Mid Left Anterior Descendin% stenosis treated with a AB TREK 2.50X15 RX BALLOON, and MDT R BIJAN 3.0X38 ROCAEL. 0% residual stenosis, DINESH: 3 flow. Conclusions 1. Subtotal thrombotic occlusion of mid LAD. 2. S/p successful revascularization with 1 stent.. 3. Mid Left Anterior Descending was treated with a Balloon, and Drug Eluting Stent. Recommendations * Dual antiplatelet therapy with aspirin and Plavix. * High intensity statin therapy. * Outpatient cardiology follow up in 2-4 weeks. Interventional RX Recommendation: PCI w/o planned CABG Diagnostic RX Recommendation: PCI w/o planned CABG Anticoagulation: Heparin Pressures Phase:Rest AO : 137 / 113 ( 124 ) @ 7:20:00 AM 132 / 99 ( 116 ) @ 7:25:00 AM 166 / 114 ( 139 ) @ 7:32:00 AM 141 / 104 ( 123 ) @ 7:36:00 AM Clinical Evaluation EBL: 5mL-10mL Procedural Details Procedure Consent Obtained. Admit Source: In Patient. Pre-Procedure Time Out. Identified patient by full name and date of as verbalized by the patient/guarantor. Does the consent match the physician's order: Yes. Accurate & Complete Informed Consent: Yes. Inpatient/Outpatient History & Physical on Chart: Yes. If H&P is completed, is and addenduem needed: No; If yes, is the addendum complete: N/A. Visualize and Verify Site with Patient/Guarantor: N/A. Relevant Radiology Images available: N/A. The risks, benefits, and alternatives of sedation and/or procedure were discussed by physician. The patient agrees to continue. Procedure started. [facility] Clinical Fraility Score: 3: Managing Well. [employer] Indications: ACS > 24 hours. Chest Pain Symptom Assessment: Typical Angina Symptoms. Correct patient, site and procedure confirmed by cath team. Current diagnosis: NSTEMI. PERRLA. Strong, equal hand tune up mechanic bilaterally. Lungs clear x 5 lobes. IV Site on Arrival: 20 gauge in the left anticubital. IV Fluids: 0.9% NaCl at 75ml/hr. 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 Pre Procedural Pulses: bilateral radial was 3+. Oxygen started at 2liters/min via nasal canula. right groin was prepped with chloroprep then draped in the usual sterile fashion. right radial was prepped with chloroprep then draped in the usual sterile fashion. Pre Procedural Pulses: bilateral dorsalis pedis was 2+. Physician notified. Baseline sample Acquired. HR: 66 BPM. Equipment: 6F - Radial. Cardiac Cath Pack. ACIST Manifold Kit Model BT 2000. Heparinized Saline (2 units/mL), 1000 mL bag. Patient's family in the [employer] lab[employer] waiting room. Dr. Marie will update at the completion of the procedure. Jennifer Mann RN was relieved by Joann Elaine RN, [facility] as monitoring person. Physician arrived. Physician scrubbed in. Immediate Pre-Procedure Time Out. Correct Patient: Yes; Correct Procedure: Yes; Correct Site: Yes; Correct Patient Position: Yes; Correct Supplies: Yes; Dried Flammable Prep: Yes; Blood Products Available: N/A;. Lidocaine 1% infiltrated to the right radial. Arterial access obtained. A 5 sami TIG catheter in over the exchange J wire. Multiple views taken of left coronary artery. Catheter redirected to the RCA. Multiple views taken of right coronary artery. Catheter removed over the exchange J wire. 6 sami XB 3.5 guide catheter was inserted over the exchange J wire. Runthrough guidewire was advanced through the guide catheter to lesion in the mid LAD. Inflation number : 1 A AB TREK 2.50X15 RX BALLOON was prepped and advanced across the Mid LAD , then inflated to 10 JOSELYN for 0:07 seconds. Inflation number: 2 The AB TREK 2.50X15 RX BALLOON was reinflated across the Mid LAD, to 8 JOSELYN for 0:07 seconds. Results checked. Inflation number: 3 The AB TREK 2.50X15 RX BALLOON was reinflated across the Mid LAD, to 8 JOSELYN for 0:06 seconds. Inflation number: 4 The AB TREK 2.50X15 RX BALLOON was reinflated across the Mid LAD, to 8 JOSELYN for 0:04 seconds. Balloon out. Results checked. Inflation Number : 5 A MARTIN Moreno BIJAN 3.0X38 ROCAEL -Lot Number# [id number] was prepped and advanced across the Mid LAD. The stent was deployed at 16 JOSELYN for 0:14 seconds. Exp. . Stent balloon out over wire. ACT drawn. Results out of range HI. Will redraw. Wire out. Results checked. Guide catheter out over the exchange J wire. Dr. Marie scrubbed out. ACT drawn. Results 321 seconds. Therapeutic limits - pre-heparin administration 90-150 seconds and monitoring heparin during a vascular procedure >250 seconds. A TR Band was successful obtaining hemostatsis at the Right Radial artery insertion site. Post Procedure: Pulses reassessed and unchanged. PERRLA. Strong, equal hand tune up mechanic bilaterally. No VTE prophylaxis required. Post-op diagnosis: Subtotal occlusion of the mid LAD s/p PCI with ROCAEL x1. Complications: none. Estimated blood loss: 5mL-10mL. Medication's Wasted: Lidocaine 1% = 18 mL. Medication's Wasted: Nitro = 49.5 mg. Medication's Wasted: Heparin = 3000 units. Total IV fluids: 70 mL. PCI Indication: NSTE. Responsiveness - Normal response to verbal stimuli; alert and oriented, PERRLA. Airway - Unaffected, no intervention required; spontaneous ventilation. Circulation: W/N/L, pulses unchanged. Nausea/Vomiting: No. Procedure completed. Patient transferred by bed to 1st floor. Vital chart was stopped. Access Site Site: Right Radial artery Sheath Size: 6 Fr Hemostasis Method: TR Band Hemostasis Success: Successful Procedure Medications Start: 6:08 AM Stop: 6:08 AM Medication: Versed Amount: 1 mg Route: I.V. Start: 6:10 AM Stop: 6:10 AM Medication: Fentanyl Amount: 25 mcg Route: I.V. Start: 6:13 AM Stop: 6:13 AM Medication: Versed Amount: 1 mg Route: I.V. Start: 6:15 AM Stop: 6:15 AM Medication: Nitrogylcerin Amount: 200 mcg Route: I.A. Start: 6:17 AM Stop: 6:17 AM Medication: Heparin Amount: 5000 units Route: I.V. Start: 6:21 AM Stop: 6:21 AM Medication: Fentanyl Amount: 25 mcg Route: I.V. Start: 6:28 AM Stop: 6:28 AM Medication: Heparin Amount: 6000 units Route: I.V. Start: 6:30 AM Stop: 6:30 AM Medication: Heparin Amount: 1000 units Route: I.V. Start: 6:31 AM Stop: 6:31 AM Medication: Fentanyl Amount: 25 mcg Route: I.V. Start: 6:32 AM Stop: 6:32 AM Medication: Nitrogylcerin Amount: 300 mcg Route: I.C. Start: 6:35 AM Stop: 6:35 AM Medication: Cardene Amount: 500 mcg Route: I.C. Start: 6:35 AM Stop: 6:35 AM Medication: Heparin Amount: 1000 units Route: I.V. Start: 6:36 AM Stop: 6:36 AM Medication: Fentanyl Amount: 25 mcg Route: I.V. Start: 6:42 AM Stop: 6:42 AM Medication: Aggrastat 12.5 mg/250 mL Amount: 69 ml Route: I.V. bolus Start: 6:42 AM Stop: 6:42 AM Medication: Aggrastat 12.5 mg/250 mL Amount: 25 ml/hr Route: I.V. bolus Start: 6:59 AM Stop: 6:59 AM Medication: Plavix Amount: 300 mg Route: P.O. I, the attending physician, have reviewed and verified all procedure medications. Yes, all medications given per verbal order History/Risk Factors Hypertension: Yes Dyslipidemia: Yes Peripheral Arterial Disease (PAD): No Myocardial Infarction ([place]): No Obesity: Yes Renal Disease: No Tobacco Use: Current/Recent(w/in 1 year) Prior Interventions PCI: Yes CABG: No Valve Surgery: No Date of PCI: 05/19/2022 Report Signatures Finalized by Riccardo Marie MD on 11/13/2023 09:07 PM
--- NOTE | 2023-11-08 06:11 | W.PM.OPSUD ---
Surgery/Procedure H&P Update DATE OF PROCEDURE: November 08, 2023 DATE H&P PERFORMED: 11/06/23 H&P UPDATE INFORMATION: I have reviewed H&P completed within last 30 days, I have examined patient prior to procedure and No changes to prior documentation PREOP DIAGNOSIS: NSTEMI PRIMARY INDICATION FOR PROCEDURE: NSTEMI PLANNED PROCEDURE: Left heart cath with possible percutaneous coronary intervention PATIENT REASSESSED PRIOR TO SEDATION, WITH NO CHANGE NOTED: Yes PHYSICAL EXAM: alert, oriented x 3, clear to auscultation bilaterally and regular rate & rhythm AIRWAY EVAL/ANESTHESIA PLAN: normal airway, ASA III, Local Anesthesia, Risks, benefits & alternatives of sedation and/or procedure discussed and Patient agrees to continue as planned
--- NOTE | 2023-11-08 07:13 | P.PN_ITS ---
Subjective 2 Subjective: Patient had critical mid LAD 95 to 99% stenosis underwent successful revascularization with 1 stent. Had some chest discomfort post procedure which later resolved. Vitals/I&O/Wt Last Vital Signs Temp 98.5 F 11/08/23 04:00 Pulse 69 11/08/23 04:00 Resp 16 11/08/23 04:00 BP 113/80 11/08/23 04:00 Pulse Ox 96 11/08/23 04:00 O2 Del Method Room Air 11/08/23 04:00 11/07/23 11/08/23 11/08/23 22:59 06:59 14:59 Intake Total 1280.583 / 2800.783 423.25 / 3224.033 Output Total 400 / 700 700 / 1400 Balance 880.583 / 2100.783 -276.75 / 1824.033 Weight last 48 hrs Weight 308 lb Weight 302 lb Weight 312 lb 9.6 oz Weight 300 lb Physical Exam 2 Narrative: GENERAL: Patient is alert, awake and oriented x3. [] NECK: No jugular vein distension. [] HEENT: No cyanosis. No icterus. No pallor. [] HEART: Regular S1 and S2. No murmur, rub or gallop. [] LUNGS: Clear to auscultate bilaterally. [] CENTRAL NERVOUS SYSTEM: Grossly nonfocal. [] EXTREMITIES: Lower extremities with 1+ edema bilaterally Data 11/09/23 03:29 11/09/23 03:29 A&P Assessment and plan (1) Non-ST elevated myocardial infarction (non-STEMI): (2) Atherosclerotic heart disease of [place] coronary artery with unstable angina pectoris: Qualifiers: [place] vs. transplanted heart: [place] heart Qualified Code(s): I25.110 - Atherosclerotic heart disease of [place] coronary artery with unstable angina pectoris (3) Essential hypertension: (4) Dyslipidemia: (5) Atrial fibrillation: Qualifiers: Atrial fibrillation type: paroxysmal Qualified Code(s): I48.0 - Paroxysmal atrial fibrillation Plan Patient's coronary angiogram demonstrated critical mid LAD stenosis status post successful revascularization with 1 stent.Had some chest discomfort postprocedure which resolved. We will resume Eliquis tomorrow. Can continue with aspirin and Plavix for today. Thank you for involving us with care of this patient. We will continue to follow. Please call with questions. Attestations 2 Medical Necessity Statement*: Care expected to cross 2 midnights. Coding Level of Care Code Acute Code for [facility] Fwd Diagnoses Non-ST elevated myocardial infarction (non-STEMI) I21.4 Atherosclerosis of [place] coronary artery of [place] heart with unstable angina pectoris I25.110 [place] vs. transplanted heart: [place] heart Essential hypertension I10 Dyslipidemia E78.5 Paroxysmal atrial fibrillation I48.0 Atrial fibrillation type: paroxysmal
[2023-11-08] MEDS: tirofiban 5 MG/100 ML PREMIX 25 MG IV (08:10)
[2023-11-08] MEDS: aspirin 81 mg EC Tablet PO (08:11)
[2023-11-08] MEDS: metoprolol tartrate 25 mg Tablet 75 MG PO ×2 (08:11→17:23)
[2023-11-08 08:34] LABS: Basophils % 0.3 %; Eosinophils # 0.2 10^3/uL (0.0-0.8); Eosinophils % 3.8 %; Hematocrit 47.7 % (37-53); Lymphocytes # 1.1 10^3/uL (0.8-4.8); Lymphocytes % 19.1 %; Mean Corpuscular HGB Conc 32.7 g/dL (30-55); Mean Corpuscular Hemoglobin 30.5 pg (27-33); Mean Corpuscular Volume 93.3 fl (82-101); Mean Platelet Volume 10.8 fL (7.4-10.4); Monocytes # 0.5 10^3/uL (0.2-0.9); Monocytes % 8.9 %; Nucleated Red Blood Cells % 0 %; Platelet Count 139 10^3/cmm (157-399); Red Blood Count 5.11 10^6/uL (3.85-5.65); Red Cell Distribution Width 12.6 % (12.1-15.1); White Blood Count 5.82 10^3/uL (3.29-11.43)
[2023-11-08 08:57] LABS: Troponin T (5th) Once 41 ng/L (0-15)
[2023-11-08 09:00] LABS: Alanine Aminotransferase 20 U/L (0-41); Albumin Level 4.2 g/dL (3.5-5.2); Alkaline Phosphatase 86 U/L (40-130); Anion Gap 13.3 (5-19); Aspartate Amino Transferase 18 U/L (0-40); Blood Urea Nitrogen 13 mg/dL (6-20); Calcium 8.6 mg/dL (8.5-10.5); Carbon Dioxide 27 mmol/L (22-29); Chloride 102 mmol/L (98-107); Creatinine Clr Calc Pharmacy 156.5092; Globulin 3.2 g/dL (1.3-4.6); Glomerular Filtration Rate 101.5 mL/min (90-130); Glucose 122 mg/dL (65-115); Osmolality Calculated 287 mOsm/kg (285-295); Potassium 4.3 mmol/L (3.5-5.1); Sodium 138 mmol/L (136-145); Total Bilirubin 0.8 mg/dL (0.15-1.2); Total Protein 7.4 g/dL (6.6-8.7)
--- NOTE | 2023-11-08 09:13 | PC.CHAP ---
Pastoral Care Encounter/Spiritual Assessment Type of Contact [] Declined surgical coordinator visit [] Patient/Family/Request visit [] Outpatient visit [] Follow-up visit [] Physician referral [] Code/Alert [x] Routine visit [] Staff referral [] Actively dying [] Patient sleeping [] Family support [] [] Out of room [] Palliative care [] [] Receiving care in room [] Pre-surgical visit [] Trauma [] Long length of stay [] ICU visit [] Other: Relational/Emotional Strength [x] Patient feels connected with others/family/visitors/staff [] Distress [] Loneliness/isolation [] Abandonment Spirituality of Patient [x] Person of Faviola [] Attends Oriental Orthodox of their Faviola [x] Believes in Prayer [] Reads Bible or Sikh materials [] There are Spiritual issues to be addressed Paper Cutter Interventions [x] Prayer [x] Active listening [] Non-anxious presence [x] Spiritual/emotional support [] Crisis/trauma care [] Spiritual counseling [] Bereavement support [] Provided bereavement packet [] Provided Bible/devotional materials [] Provided toy/stuffed animal, coloring book to patient or family member [] Provided Communion [] Anointing/[place] [] Salvation [x] Completed spiritual assessment [] Other: Impact on Illness or Injury [] Angry [] Fearful [] Anxious [] Often cries [] Exhaustion [] Unable to work [] Unable to attend evangelical [] Unable to walk/stand [] Unable to read [] Unable to drive [] Unable to eat/drink [] Unable to sleep [] Unable to be with family [] Patient intubated [] Other: Summary Time spent with patient 5 min
[2023-11-08 09:15] LABS: Folate Level 4.5 ng/mL (4.5-32.2)
--- NOTE | 2023-11-08 09:24 | PC.NURSE ---
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 no hematoma present. pt on aggrastat bag was almost empty. no order was put in for this medication prior to or after transfer. ANGELO Mccann notified from [facility] and placed an order. pt will continue aggrastat until 11:30. Patient is alert and oriented and was educated regarding activity restrictions. Nurse will continue to monitor Q15m
[2023-11-08 09:32] LABS: Partial Thromboplastin Time > 250.0 SECONDS (23.9-36.7)
--- NOTE | 2023-11-08 11:02 | ECG_ITS ---
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 Measurements Intervals [place] Rate: 60 P: 28 [place]: 184 QRS: 6 QRSD: 108 T: 26 QT: 367 QTc: 369 Interpretive Statements SINUS RHYTHM ST ELEVATION, PROBABLY EARLY REPOLARIZATION [ST ELEVATION WITH NORMALLY INFLECTED T-WAVE] Compared to ECG 11/06/2023 21:09:26 ST (T wave) deviation now present Early repolarization now present Sinus arrhythmia no longer present Electronically Signed On 11-08-2023 16:49:07 CDT by Riccardo Marie M.D. [email or web address]
[2023-11-08] MEDS: HYDROcodone-acetaminophen 5-325 mg Tablet 1 TAB PO ×2 (12:30→19:51)
--- NOTE | 2023-11-08 12:38 | P.PN_ITS ---
Subjective 2 Subjective: No acute vents overnight. Patient has remained chest pain-free. Today morning underwent cardiac angiogram and PCI to LAD complete cath report not currently available. Patient on examination denies any nausea vomiting, chest pain or heaviness. Hemodynamically stable. Vitals/I&O/Wt Last Vital Signs Temp 98.4 F 11/08/23 12:00 Pulse 66 11/08/23 12:00 Resp 14 11/08/23 12:00 BP 159/97 11/08/23 12:00 Pulse Ox 95 11/08/23 12:00 O2 Del Method Room Air 11/08/23 12:00 11/07/23 11/08/23 11/08/23 22:59 06:59 14:59 Intake Total 1280.583 / 2800.783 423.25 / 3224.033 1780 / 1780 Output Total 400 / 700 700 / 1400 Balance 880.583 / 2100.783 -276.75 / 5491.503 7709 / 1780 Weight last 48 hrs Weight 139.706 kg Weight 136.985 kg Weight 141.793 kg Weight 136.078 kg Physical Exam 2 Narrative: General: Alert oriented x3, patient seen sitting up in bed appearing comfortable on room air at this time. HEENT: Normocephalic, atraumatic, EOMI, comfortably Cardio: Regular rate rhythm, normal S1-S2 Respiratory: Clear to auscultation bilaterally no wheezes no rhonchi. GI: Abdomen soft, nontender, nondistended, bowel sounds + Extremities: Pulses 2+, no edema, no cyanosis Data 11/08/23 08:08 11/08/23 08:08 A&P Assessment and plan (1) Non-ST elevated myocardial infarction (non-STEMI): Post PCI. Continue aspirin, Plavix, beta-wilda, statin. Stop heparin drip. Echocardiogram showed EF of 55% without regional wall motion abnormality, trace MR. Appreciate A1c, lipid panel. Restart cardiac carb consistent diet. (2) Atrial fibrillation: Rate controlled. Continue with home dose of metoprolol. Will restart Eliquis in evening. Patient currently on Aggrastat post PCI. Qualifiers: Atrial fibrillation type: paroxysmal Qualified Code(s): I48.0 - Paroxysmal atrial fibrillation (3) Essential hypertension: Blood pressure slightly elevated today. Will continue to monitor. Goal blood pressure less than 140/90 mmHg. Continue with home dose of metoprolol and Cozaar. Uptitrate medications as per goal blood pressure. (4) Stented coronary artery: (5) Atherosclerosis of coronary artery: (6) Dyslipidemia: (7) Smoker: (8) Tobacco dependency: (9) Unstable angina: (10) Congestive heart failure: Plan Type 2 diabetes mellitus: No past medical history. A1c 6.1. Patient will do okay with lifestyle modification. For now we will change her diet to carb consistent. Thrombocytopenia: Chronic. Baseline seems to be around 126 to 147. Currently 139. Continue to monitor. Full code Cardiac diet carb consistent Eliquis will be sufficient for DVT prophylaxis. Currently on Aggrastat. Protonix for PUD prophylaxis Attestations 2 Medical Necessity Statement*: Requires further hospitalization for management of non-ST elevation VT post PCI to LAD in a patient with history of A-fib with RVR Diagnoses Non-ST elevated myocardial infarction (non-STEMI) I21.4 Paroxysmal atrial fibrillation I48.0 Atrial fibrillation type: paroxysmal Essential hypertension I10 Stented coronary artery Z95.5 Atherosclerosis of coronary artery I25.10 Dyslipidemia E78.5 Smoker F17.200 Tobacco dependency F17.200 Unstable angina I20.0 Congestive heart failure I50.9
--- NOTE | 2023-11-08 14:30 | PC.NURSE ---
TR band removed per protocol. Dressing in place. No bleeding or hematoma present.
[2023-11-08] MEDS: atorvastatin 40 mg Tablet 80 MG PO (19:50)
[2023-11-08] MEDS: temazepam 15 mg Capsule PO (19:52)
[2023-11-08] MEDS: pantoprazole 40 mg SDV IVP (19:52)
[2023-11-09] VITALS (8 sets, daily range): BP systolic 110–146; BP diastolic 73–83; PULSE 71–90; RESP 11–18; TEMP 36.6–36.8; O2SAT 90–97
[2023-11-09] MEDS: HYDROcodone-acetaminophen 5-325 mg Tablet 1 TAB PO (02:52)
[2023-11-09] MEDS: ibuprofen 200 mg Tablet 400 MG PO (04:14)
[2023-11-09 04:16] LABS: Basophils % 0.3 %; Eosinophils # 0.3 10^3/uL (0.0-0.8); Eosinophils % 4.4 %; Hematocrit 44.8 % (37-53); Lymphocytes % 14.8 %; Mean Corpuscular HGB Conc 32.4 g/dL (30-55); Mean Corpuscular Hemoglobin 29.9 pg (27-33); Mean Corpuscular Volume 92.4 fl (82-101); Mean Platelet Volume 10.8 fL (7.4-10.4); Monocytes # 0.8 10^3/uL (0.2-0.9); Monocytes % 11.2 %; Neutrophils # 4.82 10^3/uL (1.8-7.7); Nucleated Red Blood Cells % 0 %; Platelet Count 121 10^3/cmm (157-399); Red Blood Count 4.85 10^6/uL (3.85-5.65); Red Cell Distribution Width 12.5 % (12.1-15.1); White Blood Count 6.98 10^3/uL (3.29-11.43)
[2023-11-09 04:40] LABS: Alanine Aminotransferase 21 U/L (0-41); Albumin Level 3.8 g/dL (3.5-5.2); Alkaline Phosphatase 79 U/L (40-130); Anion Gap 13.2 (5-19); Aspartate Amino Transferase 42 U/L (0-40); Blood Urea Nitrogen 14 mg/dL (6-20); Calcium 9.2 mg/dL (8.5-10.5); Carbon Dioxide 27 mmol/L (22-29); Chloride 107 mmol/L (98-107); Creatinine Clr Calc Pharmacy 139.1193; Globulin 3.4 g/dL (1.3-4.6); Glomerular Filtration Rate 88.6 mL/min (90-130); Glucose 110 mg/dL (65-115); Osmolality Calculated 297 mOsm/kg (285-295); Potassium 4.2 mmol/L (3.5-5.1); Sodium 143 mmol/L (136-145); Total Bilirubin 0.6 mg/dL (0.15-1.2); Total Protein 7.2 g/dL (6.6-8.7)
[2023-11-09] MEDS: losartan 50 mg Tablet PO (05:10)
--- NOTE | 2023-11-09 06:48 | PM.PN ---
Subjective Subjective: Patient is doing well. no chest pain. Had PCI of mid LAD yesterday with 1 stent Vitals/I&O/Wt Last Vital Signs Temp 98.2 F 11/09/23 03:57 Pulse 86 11/09/23 05:57 Resp 18 11/09/23 03:57 BP 146/83 11/09/23 05:10 Pulse Ox 97 11/09/23 03:57 O2 Del Method Nasal Cannula 11/09/23 03:57 O2 Flow Rate 2 11/09/23 00:00 11/08/23 11/08/23 11/09/23 14:59 22:59 06:59 Intake Total 2140 / 2139 250 / 2390 Output Total 2049 / 2049 900 / 2950 Balance 214 / 2139 -1800 / 340 -900 / -560 Weight last 48 hrs Weight 306 lb 9 oz Weight 308 lb Physical Exam Narrative: GENERAL: Patient is alert, awake and oriented x3. [] NECK: No jugular vein distension. [] HEENT: No cyanosis. No icterus. No pallor. [] HEART: Regular S1 and S2. No murmur, rub or gallop. [] LUNGS: Clear to auscultate bilaterally. [] CENTRAL NERVOUS SYSTEM: Grossly nonfocal. [] EXTREMITIES: Lower extremities with 1+ edema bilaterally Data 11/09/23 03:29 11/09/23 03:29 A&P Assessment and plan (1) Non-ST elevated myocardial infarction (non-STEMI): (2) Atherosclerotic heart disease of [place] coronary artery with unstable angina pectoris: Qualifiers: [place] vs. transplanted heart: [place] heart Qualified Code(s): I25.110 - Atherosclerotic heart disease of [place] coronary artery with unstable angina pectoris (3) Essential hypertension: (4) Dyslipidemia: (5) Atrial fibrillation: Qualifiers: Atrial fibrillation type: paroxysmal Qualified Code(s): I48.0 - Paroxysmal atrial fibrillation Plan Patient had PCI of critical mid LAD stenosis with 1 stent to yesterday. Did doing well today with no chest pain. We are resuming Eliquis. Continue Plavix. At time of discharge can stop aspirin. Thank you for involving us with care of this patient. Patient is stable to be discharged from cardiology standpoint. Please call with questions. Attestations Medical Necessity Statement*: Care expected to cross 2 midnights. Coding Level of Care Code Acute Code for [facility] Fwd Diagnoses Non-ST elevated myocardial infarction (non-STEMI) I21.4 Atherosclerosis of [place] coronary artery of [place] heart with unstable angina pectoris I25.110 [place] vs. transplanted heart: [place] heart Essential hypertension I10 Dyslipidemia E78.5 Paroxysmal atrial fibrillation I48.0 Atrial fibrillation type: paroxysmal
[2023-11-09] MEDS: aspirin 81 mg EC Tablet PO (08:34)
[2023-11-09] MEDS: metoprolol tartrate 25 mg Tablet 75 MG PO (08:34)
[2023-11-09] MEDS: clopidogrel 75 mg Tablet PO (08:34)
[2023-11-09] MEDS: apixaban 5 mg Tablet PO (09:13)
--- NOTE | 2023-11-09 09:56 | PM.DCS ---
Discharge Providers Date of Admission: 11/07/23 14:58 Date of Discharge: November 09, 2023 Attending Provider at Admission: Annika Darby MD Attending Provider at Discharge: Prabhakar Sanders MD Consults: Cardiology: Dr. Marie Primary Care Provider: Winsome Carlson MD Diagnoses at Discharge Discharge Diagnosis (1) Non-ST elevated myocardial infarction (non-STEMI): Status: Acute (2) Atherosclerotic heart disease of [place] coronary artery with unstable angina pectoris: Status: Acute Qualifiers: [place] vs. transplanted heart: [place] heart Qualified Code(s): I25.110 - Atherosclerotic heart disease of [place] coronary artery with unstable angina pectoris (3) Essential hypertension: Status: Chronic (4) Dyslipidemia: Status: Acute (5) Atrial fibrillation: Status: Acute Qualifiers: Atrial fibrillation type: paroxysmal Qualified Code(s): I48.0 - Paroxysmal atrial fibrillation Reason for Visit Reason for Visit: Chest pain hand numb sob jaw and neck Brief History: History as per HPI: Raul Morales is a 52 year old male With past medical history of hypertension, dyslipidemia, smoker, CAD status post PCI of ramus artery 2021, chronically on Eliquis secondary to A-fib presented to the hospital today with complaints of chest pain. 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 Pain was in the center of his chest and radiating down his right arm and also radiated up to his jaw. He felt a pressure in his jaw. He felt mildly short of breath at that time however was not nauseous. He went home took a nitro and felt better. Subsequently while he was watching TV the same chest pain started again and therefore patient took a second nitro. Pain got better then he came to the ER. In the ER it happened for the third time and he was given nitro and chewable aspirin. At this time when being seen patient denies any chest pain. He appears anxious and worried. is at the bedside. He has taken all his medications for the day the morning and evening doses. Denies chest pain shortness of breath nausea vomiting diarrhea constipation any other symptoms at this time. Hospital Course Hospital Course Patient was admitted to the hospital further evaluation and management of chest pain in setting of non-ST elevation [place]. He was started on heparin drip. Cardiology was consulted. Echocardiogram was done which showed EF of 55 to 60% without regional wall motion malady and trace MR. He underwent cardiac angiogram and PCI to mid LAD with 1 ROCAEL on 11/07. His hospitalization was otherwise unremarkable. He has been discharged in hemodynamically stable condition with advised to take aspirin, Plavix and Eliquis for next 1 month. He is to follow-up with his primary care provider and nurse practitioner from cardiology within next [address] Neri within next 1 month. Physical Exam Narrative: General: Alert oriented x3, patient seen sitting up in bed appearing comfortable on room air at this time. HEENT: Normocephalic, atraumatic, EOMI, comfortably Cardio: Regular rate rhythm, normal S1-S2 Respiratory: Clear to auscultation bilaterally no wheezes no rhonchi. GI: Abdomen soft, nontender, nondistended, bowel sounds + Extremities: Pulses 2+, no edema, no cyanosis Discharge Data Studies Completed and Pending Completed Studies During Hospitalization Category Date Time Status XR chest 1V portable [id number] Stat Exams 11/06/23 15:04 Completed CV. 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 Echocardiogram: CONCLUSIONS LV systolic function is normal with EF of 55-60% Trace mitral regurgitation Compared to prior echocardiogram from 2021, no significant changes are seen Riccardo Marie MD (Electronically Signed) Final Date: 07 Nov 2023 15:11 Laboratory Results WBC 6.98 10^3/uL (3.29-11.43) 11/09/23 03:29 RBC 4.85 10^6/uL (3.85-5.65) 11/09/23 03:29 Hgb 14.50 g/dL (11.27-16.99) 11/09/23 03:29 Hct 44.8 % (37-53) 11/09/23 03:29 MCV 92.4 fl (82-101) 11/09/23 03:29 MCH 29.9 pg (27-33) 11/09/23 03:29 MCHC 32.4 g/dL (30-55) 11/09/23 03: RDW 12.5 % (12.1-15.1) 11/09/23 03: Plt Count 121 10^3/cmm (157-399) L 11/09/23 03: MPV 10.8 fL (7.4-10.4) H 11/09/23 03: Neut % (Auto) 69.0 % 11/09/23 03: Lymph % (Auto) 14.8 % 11/09/23 03: [place] % (Auto) 11.2 % 11/09/23 03: Eos % (Auto) 4.4 % 11/09/23 03: Baso % (Auto) 0.3 % 11/09/23 03: Neut # (Auto) 4.82 10^3/uL (1.8-7.7) 11/09/23 03: Lymph # (Auto) 1.0 10^3/uL (0.8-4.8) 11/09/23 03: [place] # (Auto) 0.8 10^3/uL (0.2-0.9) 11/09/23 03: Eos # (Auto) 0.3 10^3/uL (0.0-0.8) 11/09/23 03: Baso # (Auto) 0.0 10^3/uL (0.0-0.1) 11/09/23 03: Nucleated RBC % (auto) 0 % 11/09/23 03: Nucleated RBCs # 0.0 /100WBC 11/09/23 03: PT 13.80 SECONDS (12.1-14.9) 11/06/23 15:43 INR 1.03 (0.8-1.2) 11/06/23 15:43 APTT > 250.0 SECONDS (23.9-36.7) H* D 11/08/23 08:08 Sodium 143 mmol/L (136-145) 11/09/23 03: Potassium 4.2 mmol/L (3.5-5.1) 11/09/23 03: Chloride 107 mmol/L (98-107) 11/09/23 03: Carbon Dioxide 27 mmol/L (22-29) 11/09/23 03:29 Anion Gap 13.2 (5-19) 11/09/23 03:29 BUN 14 mg/dL (6-20) 11/09/23 03:29 Creatinine 0.9 mg/dL (0.7-1.2) 11/09/23 03:29 GFR Calculation 88.6 mL/min (90-130) L 11/09/23 03:29 Glucose 110 mg/dL (65-115) 11/09/23 03:29 Estimat Average Glucose 128 11/06/23 15:43 Hemoglobin A1c 6.1 % (4.0-6.0) H 11/06/23 15:43 Calculated Osmolality 297 mOsm/kg (285-295) H 11/09/23 03:29 Calcium 9.2 mg/dL (8.5-10.5) 11/09/23 03: Magnesium 2.0 mg/dL (1.7-2.3) 11/09/23 03:29 Iron 44 ug/dL (59-158) L 11/07/23 05:15 TIBC 262 mcg/dl 11/07/23 05:15 % Saturation 16.7 % (20-50) L 11/07/23 05:15 Unsat Iron Binding 218 ug/dL (112-347) 11/07/23 05:15 Total Bilirubin 0.6 mg/dL (0.15-1.2) 11/09/23 03:29 AST 42 U/L (0-40) H 11/09/23 03:29 ALT 21 U/L (0-41) 11/09/23 03:29 Alkaline Phosphatase 79 U/L (40-130) 11/09/23 03:29 Troponin T 5th Gen ng/L 41 ng/L (0-15) H 11/08/23 08:08 Troponin T Baseline 10 ng/L (0-15) 11/06/23 15:43 Troponin T 120 Minute 38.07 ng/L (0-15) H 11/06/23 18:25 Delta Troponin T 28.07 ABS# (0-10) H* 11/06/23 18:25 Troponin T Hi Sens 6Hr 63.00 ng/L (0-15) H 11/06/23 21:56 Troponin T Hi Sens 6Hr Delta 53.00 ng/L (0-12) H* 11/06/23 21:56 Total Protein 7.2 g/dL (6.6-8.7) 11/09/23 03:29 Albumin 3.8 g/dL (3.5-5.2) 11/09/23 03:29 Globulin 3.4 g/dL (1.3-4.6) 11/09/23 03:29 Triglycerides 222 mg/dL (0-150) H 11/06/23 18:25 Cholesterol 156 mg/dL (0-200) 11/06/23 18:25 LDL Cholesterol, Calc 75 mg/dL (50-129) 11/06/23 18:25 HDL Cholesterol 37 mg/dL (60-100) L 11/06/23 18:25 LDL/HDL Ratio 2.03 RATIO (0.00-3.22) 11/06/23 18:25 Cholesterol/HDL Ratio 4.22 mg/dL (1.0-5.00) 11/06/23 18:25 Lipase 26 U/L (13-60) 11/06/23 15:43 Vitamin B12 342 pg/mL (232-1245) 11/07/23 05:15 Folate 4.5 ng/mL (4.5-32.2) 11/08/23 08:08 Procalcitonin 0.06 ng/mL (0-0.5) 11/06/23 18:25 TSH 1.04 uIU/mL (0.27-4.20) 11/06/23 18:25 Vitals Last Vital Signs Temp 97.9 F 11/09/23 08:00 Pulse 82 11/09/23 08:00 Resp 16 11/09/23 08:00 BP 110/73 11/09/23 08:00 Pulse Ox 94 11/09/23 07:50 O2 Del Method Room Air 11/09/23 07:50 O2 Flow Rate 2 11/09/23 00:00 Discharge Plan Discharge Patient Disposition: Home Condition: Stable Prescriptions: New atorvastatin 40 mg Tablet 80 mg PO BEDTIME Qty: 60 0RF aspirin 81 mg Tablet,Delayed Release (Dr/Ec) 81 mg PO DAILY Qty: 30 0RF Continued hydrocodone-acetaminophen 5-325 mg tablet 1 tab PO Q8H PRN (Reason: Pain) coenzyme Q10 100 mg capsule 100 mg PO DAILY clopidogrel 75 mg tablet 75 mg PO DAILY Qty: 30 11RF valsartan 160 mg tablet See Rx Instructions .ROUTE .COMPLEX Qty: 30 2RF Dose Instruction: Take 1 tablet by mouth once daily Rx Instructions: Take 1 tablet by mouth once daily furosemide 20 mg tablet See Rx Instructions .ROUTE .COMPLEX Qty: 30 3RF Dose Instruction: Take 1 tablet by mouth once daily Rx Instructions: Take 1 tablet by mouth once daily Eliquis 5 mg tablet See Rx Instructions .ROUTE .COMPLEX Qty: 180 3RF Dose Instruction: Take 1 tablet by mouth twice daily Rx Instructions: Take 1 tablet by mouth twice daily metoprolol tartrate 75 mg tablet See Rx Instructions .ROUTE .COMPLEX Qty: 180 3RF Dose Instruction: Take 1 tablet by mouth twice daily Rx Instructions: Take 1 tablet by mouth twice daily nitroglycerin 0.4 mg tablet, sublingual 0.4 mg sublingual Q5M PRN (Reason: chest pain) Qty: 60 0RF Rx Instructions: do not exceed 3 doses per episode clonidine HCl 0.1 mg tablet 0.1 mg PO BID PRN (Reason: Hypertension) ibuprofen 200 mg Capsule 400 mg PO Q6H PRN (Reason: Pain) Discontinued amlodipine 5 mg tablet See Rx Instructions .ROUTE .COMPLEX Qty: 30 2RF Dose Instruction: Take 1 tablet by mouth once daily Rx Instructions: Take 1 tablet by mouth once daily atorvastatin 40 mg tablet See Rx Instructions .ROUTE .COMPLEX Qty: 30 3RF Dose Instruction: TAKE 1 TABLET BY MOUTH AT BEDTIME Rx Instructions: TAKE 1 TABLET BY MOUTH AT BEDTIME Discharge Orders: Discharge Order (Routine); Ordered 11/09/23 Ordered By: Prabhakar Sanders Referrals: Victorina Mccabe FNP [Nurse Practitioner] - 12/07/23 2:30 pm Winsome Carlson MD [Primary Care Provider] - 11/16/23 2:40 pm Discharge Diet: Regular and Cardiac Discharge Activity: Resume usual activity and Increase activity as tolerated Patient Instructions: Aspirin (By mouth) (John Extra Strength, John Aspirin [facility],..., Atorvastatin (By mouth) (Lipitor, Atorvaliq), Heart Failure (DC), Coronary Angioplasty (DC), CHF Stoplight, Opioid Safety, Post Angiogram Home Care Instructions, Post Heart Attack Stoplight Activity Restrictions/Additional Instructions: Follow-up with [facility] within next 1 week to 10 days. For now continue taking aspirin, Plavix and Eliquis. Discharge Attestations Time Spent in Discharge Care*: greater than 30 min Specific Discharge Activities: educating patient, educating and/or supporting family/caregiver, discussing with pcp/other providers, discussing with ed case manager/social workers/dc planners, documenting/other paperwork and evaluating patient/reviewing data Time Spent in Smoking Cessation: more than 10 minutes Status at Discharge: Cognitive status at discharge: cognitively intact, Behavioral status at discharge: cooperative, Functional status at discharge: independent ambulation, Overall status at discharge: patient is back to baseline Quality Metrics Clinical Quality Measures [ Acute Myocardial Infaction { Clinical Trial Participant: No; Contraindication to aspirin: None; Aspirin prescribed; Contraindication to statin: None; Statin prescribed; Contraindication to PCI: None; PCI performed; Contraindication to Fibrinolytics: None; fibrinolytics given}] Coding Level of Care Code 55786 Total time (in minutes) for Discharge: 60 Diagnoses Non-ST elevated myocardial infarction (non-STEMI) I21.4 Atherosclerosis of [place] coronary artery of [place] heart with unstable angina pectoris I25.110 [place] vs. transplanted heart: [place] heart Essential hypertension I10 Dyslipidemia E78.5 Paroxysmal atrial fibrillation I48.0 Atrial fibrillation type: paroxysmal
--- NOTE | 2023-11-09 11:35 | PC.NURSE ---
Discharge Note Patient discharged to home via POV accompanied by family. Discharge instructions reviewed with patient and/or public relations representative. Mobile pharmacy medications and/or prescriptions provided. Belongings/home medications returned.
== END 2023-11-09 11:15 | disposition home or self-care (01) | DRG 322 ==
LOC: ER 20:10 → CSU 20:37
PROVIDERS: Internal Medicine; Admitting Provider Internal Medicine; Emergency Provider Emergency Medicine; PCP Family Medicine; Visit Provider Student in an Organized Health Care Education/Training Program
PROC: 027034Z Dilation of Coronary Artery, One Artery with Drug-eluting Intraluminal Device, Percutaneous Approach (ICD-10-PCS; principal; 2023-11-08 05:50)
PROC: 027034Z Dilation of Coronary Artery, One Artery with Drug-eluting Intraluminal Device, Percutaneous Approach (ICD-10-PCS; 2023-11-08 05:50)
DX: I21.4 Non-ST elevation (NSTEMI) myocardial infarction (principal); I11.0 Hypertensive heart disease with heart failure; I50.9 Heart failure, unspecified; E78.5 Hyperlipidemia, unspecified; Z87.891 Personal history of nicotine dependence; I25.110 Atherosclerotic heart disease of native coronary artery with unstable angina pectoris; Z95.5 Presence of coronary angioplasty implant and graft; Z79.01 Long term (current) use of anticoagulants; I48.0 Paroxysmal atrial fibrillation; Z79.02 Long term (current) use of antithrombotics/antiplatelets; D69.6 Thrombocytopenia, unspecified
CPT/HCPCS: 36415; 71045; 80053; 80061; 82607; 82746; 83036; 83540; 83550; 83690; 83735; 84145; 84443; 84484; 85025; 85347; 85610; 85730; 93005; 93306; 93454; 94664; 96365; 96374; 96375; 97161; 99152; 99153; 99291; C1725; C1769; C1874; C1887; C1894; C9113; C9600; G0378; J1644; J2250; J3010; J3490; J7030; Q9967

== ENCOUNTER → 2023-12-07 14:56 | Outpatient (BNVA) | payer SELFPAY | PROVIDERS: PCP Family Medicine; Visit Provider Nurse Practitioner Family | DX: I25.10 Atherosclerotic heart disease of native coronary artery without angina pectoris (principal) | CPT/HCPCS: 36415; 80048 ==

== ENCOUNTER 2024-03-03 16:01 | Emergency (ER) | payer OTHER, SELFPAY ==
[2024-03-03] VITALS (12 sets, daily range): BP systolic 116–160; BP diastolic 74–94; PULSE 63–81; RESP 12–19; TEMP 36.6; O2SAT 93–99
--- NOTE | 2024-03-03 16:19 | XRR_ITS ---
PROCEDURE INFORMATION: Exam: XR Chest Exam date and time: 03/03/2024 4:58 PM Age: 53 years old Clinical indication: Pain; Chest pressure; Prior surgery; Surgery date: 1-6 months; Surgery type: Cardiac stents x2 (last one October 2023); Additional info: Chest pain TECHNIQUE: Imaging protocol: Radiologic exam of the chest. Views: 1 view. COMPARISON: CR XR chest 1V portable [id number] 11/06/2023 3:47 PM FINDINGS: Lungs: Lungs appear clear without consolidation. Pleural spaces: No pneumothorax or pleural effusion. Heart/Mediastinum: Mild cardiomegaly which may be secondary to technique. Bones/joints: Regional osseous structures are unremarkable. XR/XR chest 1V portable [id number] IMPRESSION: No radiographically apparent acute cardiopulmonary disease.
--- NOTE | 2024-03-03 16:19 | ECG_ITS ---
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 Measurements Intervals [place] Rate: 71 P: 30 [place]: 176 QRS: 11 QRSD: 106 T: 30 QT: 370 QTc: 404 Interpretive Statements SINUS RHYTHM Compared to ECG 11/08/2023 11:02:58 ST (T wave) deviation no longer present Early repolarization no longer present Electronically Signed On 03-03-2024 19:54:23 CDT by Pat Zuniga M.D. [id number]
[2024-03-03 16:35] LABS: Basophils % 0.4 %; Eosinophils # 0.2 10^3/uL (0.0-0.8); Eosinophils % 4.4 %; Hematocrit 43.5 % (37-53); Lymphocytes # 1.1 10^3/uL (0.8-4.8); Lymphocytes % 22.5 %; Mean Corpuscular HGB Conc 32.4 g/dL (30-55); Mean Corpuscular Hemoglobin 30.3 pg (27-33); Mean Corpuscular Volume 93.5 fl (82-101); Mean Platelet Volume 10.2 fL (7.4-10.4); Monocytes # 0.5 10^3/uL (0.2-0.9); Monocytes % 10.9 %; Neutrophils # 3.06 10^3/uL (1.8-7.7); Neutrophils % 61.6 %; Nucleated Red Blood Cells % 0 %; Platelet Count 143 10^3/cmm (157-399); Red Blood Count 4.65 10^6/uL (3.85-5.65); Red Cell Distribution Width 12.4 % (12.1-15.1); White Blood Count 4.97 10^3/uL (3.29-11.43)
[2024-03-03 16:51] LABS: Troponin(5th) Baseline < 6 ng/L (0-15)
--- NOTE | 2024-03-03 16:54 | ECG_ITS ---
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 Measurements Intervals [place] Rate: 71 P: 9 [place]: 143 QRS: 15 QRSD: 97 T: 35 QT: 368 QTc: 401 Interpretive Statements SINUS RHYTHM Compared to ECG 03/03/2024 16:04:34 No significant changes Electronically Signed On 03-03-2024 20:06:49 CDT by Pat Zuniga M.D. [id number]
[2024-03-03 16:58] LABS: Alanine Aminotransferase 19 U/L (0-41); Albumin Level 4.2 g/dL (3.5-5.2); Alkaline Phosphatase 94 U/L (40-130); Anion Gap 12.8 (5-19); Aspartate Amino Transferase 17 U/L (0-40); Blood Urea Nitrogen 21 mg/dL (6-20); Calcium 9.3 mg/dL (8.5-10.5); Carbon Dioxide 30 mmol/L (22-29); Chloride 103 mmol/L (98-107); Creatinine Clr Calc Pharmacy 119.8386; Globulin 2.8 g/dL (1.3-4.6); Glomerular Filtration Rate 78.2 mL/min (90-130); Glucose 118 mg/dL (65-115); Osmolality Calculated 298 mOsm/kg (285-295); Potassium 3.8 mmol/L (3.5-5.1); Sodium 142 mmol/L (136-145); Total Bilirubin 0.3 mg/dL (0.15-1.2)
--- NOTE | 2024-03-03 16:59 | ED_ITS ---
HPI - Chest Pain 2 General: Chief Complaint: Chest Pain Stated Complaint: Chest Pain, SOB Time Seen by Provider: 03/03/24 16:37 History of Present Illness: 53-year-old male presents to the emergen cy department chief complaint of ongoing intermittent chest pain over the last couple of days patient Dors that he had a recent cardiac stenting couple months ago by Dr. Neri patient Dors is he took 2 nitroglycerin earlier today with minimal improvement of his symptoms he also reported he has some shortness of breath and palpitations patient reports currently he is having just a little bit of chest pressure with no radiation patient denies any recent infections or illnesses or any other associated symptoms. Patient reports he has been taking his medications including Eliquis as prescribed. Associated symptoms: Reports palpitations; Deny abdominal pain, dyspnea, fever(s), nausea or vomiting Related Data Home Medications Medication Instructions Recorded Confirmed clonidine HCl 0.1 mg tablet 0.1 mg PO BID PRN Hypertension 05/18/22 12/07/23 ibuprofen 200 mg capsule 400 mg PO Q6H PRN Pain 05/18/22 12/07/23 coenzyme Q10 100 mg capsule 100 mg PO DAILY 01/19/23 12/07/23 hydrocodone 5 mg-acetaminophen 325 1 tab PO Q8H PRN Pain 07/27/23 12/07/23 mg tablet atorvastatin 40 mg tablet 40 mg PO BEDTIME 12/07/23 Previous Rx's Medication Instructions Recorded nitroglycerin 0.4 mg sublingual 0.4 mg sublingual Q5M PRN chest 02/05/22 tablet pain #60 tabs clopidogrel 75 mg tablet 75 mg PO DAILY #30 tabs 05/11/23 apixaban 5 mg tablet (Eliquis) See Rx Instructions .Route 10/11/23 .COMPLEX #180 tabs amlodipine 5 mg tablet 5 mg PO DAILY #90 tabs 11/30/23 valsartan 160 mg tablet See Rx Instructions .Route 01/06/24 .COMPLEX #30 tabs metoprolol tartrate 50 mg tablet 75 mg (1.5 x 50 mg) PO BID #270 01/25/24 tabs furosemide 20 mg tablet See Rx Instructions .Route 02/23/24 .COMPLEX #30 tabs Allergies Allergy/AdvReac Type Severity Reaction Status Date / Time simvastatin Allergy ADR-Muscle Verified 03/03/24 16:13 Pain Review of Systems 2 General: Reports: 10 or more systems reviewed and unremarkable except in HPI and below Const: Denies: fever(s), chills, fatigue or malaise Eyes: Denies: change in vision or blurry vision Card: Reports: chest pain, palpitations and dyspnea on exertion; Denies: edema Resp: Denies: dyspnea or productive cough GI: Denies: abdominal pain, nausea or vomiting : Denies: flank pain Musc: Denies: extremity pain or extremity swelling Skin/Breast: Denies: rash or pruritus Neuro: Denies: headache(s) Psych: Denies: anxiety or depression Raj/Lymph: Denies: easy bleeding All/Imm: Denies: urticaria, throat swelling or facial swelling PFSH ED 2 PFSH: Medical History Coronary artery disease Atherosclerosis of coronary artery Hypertension Dyslipidemia Smoker Surgical History Stented coronary artery History of surgery on left wrist cyst removed History of arthroscopic surgery of shoulder right 2014 Family History Mother Cancer Hypertension Grandmother Diabetes Social History Smoking and tobacco/nicotine status: never used tobacco/nicotine Second hand smoke exposure: No Alcohol intake: never Substance/Drug Use: never Adopted: No Caregiver/support person: No Lives independently: Yes Household members: significant other Housing: Manufactured/Mobile home Marital status: Number of children: 2 Highest education level completed: Some College, No Degree service: No Current occupational status: unemployed 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 HENMT: COMMON NORMALS: normocephalic and atraumatic HEAD & SCALP: n ormocephalic and atraumatic Eye: COMMON NORMALS: Equal, round and reactive pupils present and EOMs intact bilaterally PUPIL: Yes Equal, round and reactive pupils present Neck/C-Spine: COMMON NORMALS: full ROM, supple and no JVD Lymph: LYMPHATIC: no lymphadenopathy noted Chest: COMMONS NORMALS: normal inspection of the chest and normal palpation of entire chest wall Resp: COMMON NORMALS: normal respiratory effort, No retractions and clear to auscultation bilaterally EFFORT & INSPECTION: Yes able to speak in complete sentences and Yes symmetric chest movement AUSCULTATION: clear to auscultation bilaterally Cardio: COMMON NORMALS: no JVD, regular rate and regular rhythm RATE: r egular rate RHYTHM: regular rhythm GI: COMMON NORMALS: Normal to inspection, nondistended, normoactive bowel sounds present, Soft to palpation and non-tender INSPECTION: Yes normal to inspection PALPATION: Yes Soft to palpation : COMMON NORMALS: Yes no CVA tenderness BLADDER/KIDNEY EXAM: Yes no CVA tenderness Back/Pelvis: COMMON NORMALS: no CVA tenderness Extremity: COMMON NORMALS: normal to inspection and full ROM Neuro: COMMON NORMALS: patient oriented x3, CN's II-XII intact bilaterally, moves all extremities and no focal motor deficits Psych: COMMON NORMALS: mental status grossly normal, Normal thought process present, cooperative and normal affect THOUGHT PROCESS: Normal thought process present Skin: COMMON NORMALS: no rashes or lesions noted GENERAL SKIN EXAM: no rashes or lesions noted Course 2 Vital Signs: Vital signs: Vital Signs Temperature 97.9 F 03/03/24 16:07 Pulse Rate 65 03/03/24 18:15 Respiratory Rate 12 03/03/24 18:15 Blood Pressure 131/78 03/03/24 18:00 Pulse Oximetry 97 03/03/24 18:15 Oxygen Delivery Me thod Room Air 03/03/24 16:07 MDM - Chest Pain Medical Decision Making Due to patient's symptoms and condition lab work and imaging will be obtained we will can to follow EKG appears unremarkable with no ST segment elevations or depressions will continue to follow with aspirin and nitro for this patient. Patient's initial troponin and repeat troponin both came back unremarkable the patient has had no additional pain throughout his time emergency department patient is stable for discharge home it appears to be more anginal equivalent pain patient advised to continue his nitroglycerin as previously prescribed further follow-up with his kitchen clerk as if needed which to return the interim if any of his symptoms persist or worse. Lab Data 03/03/24 16:29 03/03/24 16:29 Laboratory Results WBC 4.97 10^3/uL (3.29-11.43) 03/03/24 16:29 RBC 4.65 10^6/uL (3.85-5.65) 03/03/24 16: Hgb 14.10 g/dL (11.27-16.99) 03/03/24 16: Hct 43.5 % (37-53) 03/03/24 16: MCV 93.5 fl (82-101) 03/03/24 16: MCH 30.3 pg (27-33) 03/03/24 16: MCHC 32.4 g/dL (30-55) 03/03/24 16: RDW 12.4 % (12.1-15.1) 03/03/24: Plt Count 143 10^3/cmm (157-399) L 03/03/24: MPV 10.2 fL (7.4-10.4) 03/03/24 16: Neut % (Auto) 61.6 % 03/03/24 16: Lymph % (Auto) 22.5 % 03/03/24 16: [place] % (Auto) 10.9 % 03/03/24 16: Eos % (Auto) 4.4 % 03/03/24: Baso % (Auto) 0.4 % 03/03/24: Neut # (Auto) 3.06 10^3/uL (1.8-7.7) 03/03/24: Lymph # (Auto) 1.1 10^3/uL (0.8-4.8) 03/03/24: [place] # (Auto) 0.5 10^3/uL (0.2-0.9) 03/03/24 16: Eos # (Auto) 0.2 10^3/uL (0.0-0.8) 03/03/24: Baso # (Auto) 0.0 10^3/uL (0.0-0.1) 03/03/24: Nucleated RBC % (auto) 0 % 03/03/24: Nucleated RBCs # 0.0 /100WBC 03/03/24 16: PT 12.90 SECONDS (12.1-14.9) 03/03/24 16: INR 0.95 (0.8-1.2) 03/03/24 16:29 APTT 31.9 SECONDS (23.9-36.7) 03/03/24 16:29 Sodium 142 mmol/L (136-145) 03/03/24 16:29 Potassium 3.8 mmol/L (3.5-5.1) 03/03/24 16:29 Chloride 103 mmol/L (98-107) 03/03/24 16:29 Carbon Dioxide 30 mmol/L (22-29) H 03/03/24 16:29 Anion Gap 12.8 (5-19) 03/03/24 16:29 BUN 21 mg/dL (6-20) H 03/03/24 16:29 Creatinine 1.0 mg/dL (0.7-1.2) 03/03/24 16:29 GFR Calculation 78.2 mL/min (90-130) L 03/03/24 16:29 Glucose 118 mg/dL (65-115) H 03/03/24 16:29 Calculated Osmolality 298 mOsm/kg (285-295) H 03/03/24 16:29 Calcium 9.3 mg/dL (8.5-10.5) 03/03/24 16:29 Total Bilirubin 0.3 mg/dL (0.15-1.2) 03/03/24 16:29 AST 17 U/L (0-40) 03/03/24 16:29 ALT 19 U/L (0-41) 03/03/24 16:29 Alkaline Phosphatase 94 U/L (40-130) 03/03/24 16:29 Troponin T Baseline < 6 ng/L (0-15) 03/03/24 16:29 Troponin T 120 Minute 6.00 ng/L (0-15) 03/03/24 18:29 Delta Troponin T 0.80745 ABS# (0-10) 03/03/24 18:29 NT-Pro-B Natriuret Pep < 36 pg/mL (0-125) 03/03/24 16:29 Total Protein 7.0 g/dL (6.6-8.7) 03/03/24 16:29 Albumin 4.2 g/dL (3.5-5.2) 03/03/24 16:29 Globulin 2.8 g/dL (1.3-4.6) 03/03/24 16:29 All radiology interpretation(s) finalized by discharge Discharge Plan Discharge Patient Disposition: Home Clinical Impression: Chest pain at rest, Angina at rest Condition: Stable Prescriptions: No Action hydrocodone-acetaminophen 5-325 mg tablet 1 tab PO Q8H PRN (Reason: Pain) atorvastatin 40 mg tablet 40 mg PO BEDTIME coenzyme Q10 100 mg capsule 100 mg PO DAILY metoprolol tartrate 50 mg tablet 75 mg PO BID Qty: 270 2RF clopidogrel 75 mg tablet 75 mg PO DAILY Qty: 30 11RF Eliquis 5 mg tablet See Rx Instructions .ROUTE .COMPLEX Qty: 180 3RF Dose Instruction: Take 1 tablet by mouth twice daily Rx Instructions: Take 1 tablet by mouth twice daily amlodipine 5 mg tablet 5 mg PO DAILY Qty: 90 3RF valsartan 160 mg tablet See Rx Instructions .ROUTE .COMPLEX Qty: 30 2RF Dose Instruction: Take 1 tablet by mouth once daily Rx Instructions: Take 1 tablet by mouth once daily furosemide 20 mg tablet See Rx Instructions .ROUTE .COMPLEX Qty: 30 3RF Dose Instruction: Take 1 tablet by mouth once daily Rx Instructions: Take 1 tablet by mouth once daily nitroglycerin 0.4 mg tablet, sublingual 0.4 mg sublingual Q5M PRN (Reason: chest pain) Qty: 60 0RF Rx Instructions: do not exceed 3 doses per episode clonidine HCl 0.1 mg tablet 0.1 mg PO BID PRN (Reason: Hypertension) ibuprofen 200 mg Capsule 400 mg PO Q6H PRN (Reason: Pain) Discharge Orders: Discharge ED (Routine); Ordered 03/03/24 Ordered By: Savage Starkey Referrals: Winsome Carlson MD [Primary Care Provider] - 4-7 days Discharge Diet: Cardiac Discharge Activity: Increase activity as tolerated Patient Instructions: Angina (ED), Chest Pain (ED) Activity Restrictions/Additional Instructions: Please further follow-up with your primary care doctor or kitchen clerk in 1 week continue taking nitroglycerin tablets as prescribed please return the interim if any of your symptoms persist or worse your lab work and imaging today is come back reassuring for no cardiac ischemia. Coding Level of Care Code ED Truck Driver Supervisor for Efra Wolff
[2024-03-03 17:04] LABS: INR 0.95 (0.8-1.2); Partial Thromboplastin Time 31.9 SECONDS (23.9-36.7)
[2024-03-03 17:22] LABS: NT Pro B Type Natriuretic Pept < 36 pg/mL (0-125)
[2024-03-03] MEDS: sodium chloride 0.9% 1,000 ML 999 ML IV (17:37)
[2024-03-03] MEDS: aspirin 81 mg Chew Tablet 324 MG PO (17:38)
--- NOTE | 2024-03-03 17:38 | PC.NURSE ---
Pt refused the morphine and zofran as he reports his pain is 2/10 and not in need of meds. Pt verbalized understanding that the meds will be available if his pain increases.
--- NOTE | 2024-03-03 18:05 | ECG_ITS ---
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 Measurements Intervals [place] Rate: 66 P: 35 MD: 188 QRS: 14 QRSD: 96 T: 33 QT: 391 QTc: 412 Interpretive Statements SINUS RHYTHM Compared to ECG 03/03/2024 16:54:26 No significant changes Electronically Signed On 03-03-2024 20:06:38 CDT by Pat Zuniga M.D. [id number]
[2024-03-03 18:50] LABS: Troponin 5 2HR Delta 0.00001 ABS# (0-10)
== END 2024-03-03 19:31 | disposition home or self-care (01) ==
PROVIDERS: Physician Assistant; Emergency Provider Emergency Medicine; PCP Family Medicine
DX: R07.89 Other chest pain (principal); I25.118 Atherosclerotic heart disease of native coronary artery with other forms of angina pectoris; Z79.01 Long term (current) use of anticoagulants; Z79.02 Long term (current) use of antithrombotics/antiplatelets; I25.10 Atherosclerotic heart disease of native coronary artery without angina pectoris; I10 Essential (primary) hypertension; E78.5 Hyperlipidemia, unspecified
CPT/HCPCS: 36415; 71045; 80053; 83880; 84484; 85025; 85610; 85730; 93005; 96360; 96361; 99285; J2270; J2405; J7030

== ENCOUNTER 2024-03-05 10:27 | Observation (INO) | payer OTHER, SELFPAY ==
[2024-03-05] VITALS (21 sets, daily range): BP systolic 104–152; BP diastolic 59–97; PULSE 56–81; RESP 12–23; TEMP 36.6–36.8; O2SAT 91–98; BMI 39.3; BMI 41.3
--- NOTE | 2024-03-05 10:33 | ECG_ITS ---
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 Measurements Intervals [place] Rate: 63 P: 25 NE: 158 QRS: 23 QRSD: 101 T: 58 QT: 377 QTc: 388 Interpretive Statements SINUS RHYTHM INTERPRETATION BASED ON A DEFAULT AGE OF 40 YEARS Compared to ECG 03/03/2024 18:05:30 No significant changes Electronically Signed On 03-05-2024 23:26:59 CDT by Pat Zuniga M.D. [email or web address] [email or web address]/store/[id number]
--- NOTE | 2024-03-05 10:44 | XRR_ITS ---
PROCEDURE INFORMATION: Exam: XR Chest Exam date and time: 03/05/2024 10:53 AM Age: 53 years old Clinical indication: Pain; Angina pectoris; Prior surgery; Surgery date: 6+ months; Surgery type: Cardiac stents; Additional info: Chest pain TECHNIQUE: Imaging protocol: Radiologic exam of the chest. Views: 1 view. COMPARISON: CR (CHEST, ) 03/03/2024 4:58 PM FINDINGS: Lungs: Unremarkable. No consolidation. Pleural spaces: Unremarkable. No pleural effusion. No pneumothorax. Heart/Mediastinum: Stable prominent cardiac silhouette. Bones/joints: Unremarkable. XR/XR chest 1V portable [id number] IMPRESSION: No acute findings.
--- NOTE | 2024-03-05 11:27 | ED_ITS ---
HPI - Chest Pain 2 General: Chief Complaint: Chest Pain Stated Complaint: chest pains Time Seen by Provider: 03/05/24 11:08 History of Present Illness: 53-year-old male with a history of coron kassie artery disease with recently placed stents on Eliquis and Plavix who presents to the emergency room with continued chest pain. He was seen in the emergency room couple days ago with chest pain. He says he was diagnosed with angina and sent home. He says he is been taking nitro regularly. He took 5 yesterday and several already today. Said the pain woke him up in the middle of the night. He had tried to go to Dr. Marie's office today but was sent to the emergency room. No cough. No abdominal pain. No nausea or vomiting. Related Data Home Medications Medication Instructions Recorded Confirmed ibuprofen 200 mg capsule 400 mg PO Q6H PRN Pain 05/18/22 03/05/24 coenzyme Q10 100 mg capsule 100 mg PO DAILY 01/19/23 03/05/24 atorvastatin 40 mg tablet 40 mg PO BEDTIME 12/07/23 03/05/24 apixaban 5 mg tablet (Eliquis) 5 mg PO BID 03/05/24 03/05/24 furosemide 20 mg tablet 20 mg PO DAILY 03/05/24 03/05/24 hydrocodone 7.5 mg-acetaminophen 1 tab PO Q8H PRN Pain 03/05/24 03/05/24 325 mg tablet valsartan 160 mg tablet 160 mg PO DAILY 03/05/24 03/05/24 Previous Rx's Medication Instructions Recorded clopidogrel 75 mg tablet 75 mg PO DAILY #30 tabs 05/11/23 amlodipine 5 mg tablet 5 mg PO DAILY #90 tabs 11/30/23 metoprolol tartrate 50 mg tablet 75 mg (1.5 x 50 mg) PO BID #270 01/25/24 tabs nitroglycerin 0.4 mg sublingual 0.4 mg sublingual Q5M PRN chest 03/03/24 tablet pain #20 tabs Allergies Allergy/AdvReac Type Severity Reaction Status Date / Time simvastatin Allergy ADR-Muscle Verified 03/03/24 16:13 Pain Review of Systems 2 Narrative: Constitutional symptoms: Negative except as documented in HPI. Skin symptoms: Negative except as documented in HPI. Eye symptoms: Negative except as documented in HPI. ENMT symptoms: Negative except as documented in HPI. Respiratory symptoms: Negative except as documented in HPI. Cardiovascular symptoms: Negative except as documented in HPI. Gastrointestinal symptoms: Negative except as documented in HPI. Genitourinary symptoms: Negative except as documented in HPI. Musculoskeletal symptoms: Negative except as documented in HPI. Neurologic symptoms: Negative except as documented in HPI. Psychiatric symptoms: Negative except as documented in HPI. Endocrine symptoms: Negative except as documented in HPI. PFSH ED 2 PFSH: Medical History Coronary artery disease Atherosclerosis of coronary artery Hypertension Dyslipidemia Smoker Surgical History Stented coronary artery History of surgery on left wrist cyst removed History of arthroscopic surgery of shoulder right 2014 Family History Mother Cancer Hypertension Grandmother Diabetes Social History Smoking and tobacco/nicotine status: never used tobacco/nicotine Second hand smoke exposure: No Alcohol intake: never Substance/Drug Use: never Adopted: No Caregiver/support person: No Lives independently: Yes Household members: significant other Housing: Manufactured/Mobile home Marital status: Number of children: 2 Highest education level completed: Some College, No Degree service: No Current occupational status: unemployed 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 Skin: Warm, dry. Head: Normocephalic, atraumatic. Neck: Supple, trachea midline. Eye: Extraocular movements are intact. Ears, nose, mouth and throat: mucosa moist. Cardiovascular: Regular, Normal peripheral perfusion. Respiratory: Lungs are clear to auscultation, respirations are non-labored, breath sounds are equal, Symmetrical chest wall expansion. Gastrointestinal: Soft, Nontender, Non distended Musculoskeletal: Normal ROM, no deformity. Neurological: Alert and oriented, No focal neurological deficit observed. Psychiatric: Cooperative, appropriate mood & affect. Course 2 Vital Signs: Vital signs: Vital Signs Temperature 98 F 03/05/24 10:40 Pulse Rate 67 03/05/24 10:40 Respiratory Rate 15 03/05/24 10:40 Blood Pressure 117/75 03/05/24 10:40 Pulse Oximetry 95 03/05/24 10:40 Oxygen Delivery Me thod Room Air 03/05/24 10:40 MDM - Chest Pain Medical Decision Making Differential diagnosis for patient with chest pain includes but is not limited to and based on the above HPI, review of systems and physical exam: Pneumonia. unstable angina. angina. Acute coronary syndrome / LA. Pulmonary embolism. Costochondritis / musculoskeletal. Pleurisy. Pericarditis. Esophageal spasm. Pancreatis. Cholecystitis. Orders placed to evaluate differential diagnosis based on the above differential, HPI and physical exam EKG: Time 1033. Rate 63. Normal sinus rhythm, No ST-T changes, no ectopy, normal ME & QRS intervals, This was reviewed and interpreted by myself the ER physician at 10:40 AM. Chest x-ray: No acute process. No infiltrate. No pneumothorax. This was reviewed and interpreted by myself the ER physician. Lab Review: Laboratory results were reviewed and interpreted by myself the emergency room physician. White count is normal at 5. Hemoglobin normal at 14. Platelets are little low at 142. BUN and creatinine are 20 and 0.9. Troponin is negative. I reviewed the patient's medical record. Workup on Tuesday revealed negative serial troponins and negative EKGs for ischemia. Patient was sent home at that point. Reexamination: Patient remained stable. No increased work of breathing. No altered mental status. No focal motor deficits. Consultation: I spoke with Dr. 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 He recommends admission. He likely will do a heart cath tomorrow given the patient's escalated need for nitroglycerin. Consultation: I spoke with Dr. Kelsey who is on-call for the hospitalist service. She agrees to admission to the cardiac stepdown unit. Assessment and plan: Unstable angina Coronary artery disease -I discussed the patient with the hospitalist on-call who is admitting the patient. - Discussed findings and plan with patient. Answered any questions. - All laboratory values were reviewed and interpreted personally by myself, the ER physician - All imaging was reviewed and interpreted personally by myself, the ER physician. - Evaluation and treatment of this problem were appropriate in the emergency setting Lab Data 03/05/24 11:31 03/05/24 11:31 Radiology Impressions Chest X-Ray 03/05/24 10:44 IMPRESSION: No acute findings. Laboratory Results WBC 4.97 10^3/uL (3.29-11.43) 03/05/24 11:31 RBC 4.73 10^6/uL (3.85-5.65) 03/05/24 11:31 Hgb 14.30 g/dL (11.27-16.99) 03/05/24 11:31 Hct 44.0 % (37-53) 03/05/24 11:31 MCV 93.0 fl (82-101) 03/05/24 11:31 MCH 30.2 pg (27-33) 03/05/24 11:31 MCHC 32.5 g/dL (30-55) 03/05/24 11:31 RDW 12.5 % (12.1-15.1) 03/05/24 11:31 Plt Count 142 10^3/cmm (157-399) L 03/05/24 11:31 MPV 11.0 fL (7.4-10.4) H 03/05/24 11:31 Neut % (Auto) 63.8 % 03/05/24 11:31 Lymph % (Auto) 21.3 % 03/05/24 11:31 [place] % (Auto) 10.7 % 03/05/24 11:31 Eos % (Auto) 3.6 % 03/05/24 11:31 Baso % (Auto) 0.4 % 03/05/24 11:31 Neut # (Auto) 3.17 10^3/uL (1.8-7.7) 03/05/24 11:31 Lymph # (Auto) 1.1 10^3/uL (0.8-4.8) 03/05/24 11:31 [place] # (Auto) 0.5 10^3/uL (0.2-0.9) 03/05/24 11:31 Eos # (Auto) 0.2 10^3/uL (0.0-0.8) 03/05/24 11:31 Baso # (Auto) 0.0 10^3/uL (0.0-0.1) 03/05/24 11:31 Nucleated RBC % (auto) 0 % 03/05/24 11:31 Nucleated RBCs # 0.0 /100WBC 03/05/24 11:31 Sodium 141 mmol/L (136-145) 03/05/24 11:31 Potassium 4.5 mmol/L (3.5-5.1) 03/05/24 11:31 Chloride 105 mmol/L (98-107) 03/05/24 11:31 Carbon Dioxide 26 mmol/L (22-29) 03/05/24 11:31 Anion Gap 14.5 (5-19) 03/05/24 11:31 BUN 20 mg/dL (6-20) 03/05/24 11:31 Creatinine 0.9 mg/dL (0.7-1.2) 03/05/24 11:31 GFR Calculation 88.3 mL/min (90-130) L 03/05/24 11:31 Glucose 122 mg/dL (65-115) H 03/05/24 11:31 Calculated Osmolality 296 mOsm/kg (285-295) H 03/05/24 11:31 Calcium 9.1 mg/dL (8.5-10.5) 03/05/24 11:31 Total Bilirubin 0.3 mg/dL (0.15-1.2) 03/05/24 11:31 AST 18 U/L (0-40) 03/05/24 11:31 ALT 17 U/L (0-41) 03/05/24 11:31 Alkaline Phosphatase 85 U/L (40-130) 03/05/24 11:31 Troponin T Baseline < 6 ng/L (0-15) 03/05/24 11:31 NT-Pro-B Natriuret Pep 48 pg/mL (0-125) 03/05/24 11:31 Total Protein 6.9 g/dL (6.6-8.7) 03/05/24 11:31 Albumin 4.1 g/dL (3.5-5.2) 03/05/24 11:31 Globulin 2.8 g/dL (1.3-4.6) 03/05/24 11:31 All radiology interpretation(s) finalized by discharge Discharge Plan Discharge Condition: Stable Prescriptions: No Action atorvastatin 40 mg tablet 40 mg PO BEDTIME coenzyme Q10 100 mg capsule 100 mg PO DAILY metoprolol tartrate 50 mg tablet 75 mg PO BID Qty: 270 2RF clopidogrel 75 mg tablet 75 mg PO DAILY Qty: 30 11RF amlodipine 5 mg tablet 5 mg PO DAILY Qty: 90 3RF ibuprofen 200 mg Capsule 400 mg PO Q6H PRN (Reason: Pain) nitroglycerin 0.4 mg tablet, sublingual 0.4 mg sublingual Q5M PRN (Reason: chest pain) Qty: 20 0RF Rx Instructions: do not exceed 3 doses per episode hydrocodone-acetaminophen 7.5-325 mg tablet 1 tab PO Q8H PRN (Reason: Pain) furosemide 20 mg tablet 20 mg PO DAILY valsartan 160 mg tablet 160 mg PO DAILY Eliquis 5 mg tablet 5 mg PO BID Referrals: Winsome Carlson MD [Primary Care Provider] - Coding Level of Care Code ED Pharmacy Data Analyst for Efra Wolff
[2024-03-05 11:46] LABS: Basophils % 0.4 %; Eosinophils # 0.2 10^3/uL (0.0-0.8); Eosinophils % 3.6 %; Lymphocytes # 1.1 10^3/uL (0.8-4.8); Lymphocytes % 21.3 %; Mean Corpuscular HGB Conc 32.5 g/dL (30-55); Mean Corpuscular Hemoglobin 30.2 pg (27-33); Monocytes # 0.5 10^3/uL (0.2-0.9); Monocytes % 10.7 %; Neutrophils # 3.17 10^3/uL (1.8-7.7); Neutrophils % 63.8 %; Nucleated Red Blood Cells % 0 %; Platelet Count 142 10^3/cmm (157-399); Red Blood Count 4.73 10^6/uL (3.85-5.65); Red Cell Distribution Width 12.5 % (12.1-15.1); White Blood Count 4.97 10^3/uL (3.29-11.43)
[2024-03-05 12:11] LABS: Troponin(5th) Baseline < 6 ng/L (0-15)
[2024-03-05 12:18] LABS: Alanine Aminotransferase 17 U/L (0-41); Albumin Level 4.1 g/dL (3.5-5.2); Alkaline Phosphatase 85 U/L (40-130); Blood Urea Nitrogen 20 mg/dL (6-20); Calcium 9.1 mg/dL (8.5-10.5); Carbon Dioxide 26 mmol/L (22-29); Chloride 105 mmol/L (98-107); Globulin 2.8 g/dL (1.3-4.6); Glomerular Filtration Rate 88.3 mL/min (90-130); Glucose 122 mg/dL (65-115); NT Pro B Type Natriuretic Pept 48 pg/mL (0-125); Osmolality Calculated 296 mOsm/kg (285-295); Sodium 141 mmol/L (136-145); Total Bilirubin 0.3 mg/dL (0.15-1.2); Total Protein 6.9 g/dL (6.6-8.7)
[2024-03-05 12:20] LABS: Anion Gap 14.5 (5-19); Aspartate Amino Transferase 18 U/L (0-40); Potassium 4.5 mmol/L (3.5-5.1)
--- NOTE | 2024-03-05 12:45 | ECG_ITS ---
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 Measurements Intervals [place] Rate: 59 P: 32 MO: 159 QRS: 39 QRSD: 91 T: 68 QT: 386 QTc: 383 Interpretive Statements SINUS BRADYCARDIA Compared to ECG 03/05/2024 10:33:39 Sinus rhythm no longer present Electronically Signed On 03-05-2024 23:35:26 CDT by Pat Zuniga M.D. [email or web address] hospital at stone countyeEyeohiohealth berger hospitalDPSI/store/OM/[id number]
--- NOTE | 2024-03-05 13:06 | PC.PHAR ---
pt states started 80mg Atorvastatin on 02/17/24 and it has caused all his current problems so he dropped back down to 40mg daily.
[2024-03-05] MEDS: nitroglycerin 0.4 mg sublingual Tablet SUBLINGUAL ×2 (14:27→18:20)
[2024-03-05 15:01] LABS: Troponin 5 2HR Delta 0.00001 ABS# (0-10)
--- NOTE | 2024-03-05 15:53 | PM.HP ---
Providers/Chief Complaint Admitting Physician: Amina Kelsey MD Primary Care Provider: Winsome Carlson MD Chief Complaint: chest pains History of Present Illness Raul Morales is a 53 year old male with past medical history of hypertension, hyperlipidemia, CAD s/p PCI x 2, last PCI in 11/03 presented with complaint of midsternal chest pain since 4 to 5 days. As per the patient he started having midsternal chest pain, 9/10 in intensity, squeezing, associated with shortness of breath, fluttering in the chest and choking sensation, worsening with exertion, relieved with nitroglycerin. He has been taking nitro sublingual multiple times since last 2 days. He was seen in ER 2 days ago for similar complaints and had negative troponins and normal EKG and was discharged home with p.o. sublingual nitroglycerin to be taken as needed. But he has been having chest pain more often since last 2 days needing multiple nitroglycerin doses and hence came to ER for further evaluation. He had 2 PCI's done, one was 1 year ago and the second was in October 2023. He denies any history of nausea, vomiting, fever, cough or dizziness. 2 sets of troponins negative in the ER and EKG normal sinus rhythm with no acute ST-T changes. BNP was 48 Review of Systems General: Reports: 10 or more systems reviewed and unremarkable except in HPI and below Medications/Allergies Home Medications Medication Instructions Recorded Confirmed Last Taken Type ibuprofen 200 mg capsule 400 mg PO Q6H PRN Pain 05/18/22 03/05/24 Unknown History coenzyme Q10 100 mg capsule 100 mg PO DAILY 01/19/23 03/05/24 03/05/24 History clopidogrel 75 mg tablet 75 mg PO DAILY #30 tabs 05/11/23 03/05/24 03/05/24 Rx amlodipine 5 mg tablet 5 mg PO DAILY #90 tabs 11/30/23 03/05/24 03/05/24 Rx atorvastatin 40 mg tablet 40 mg PO BEDTIME 12/07/23 03/05/24 03/04/24 History metoprolol tartrate 50 mg tablet 75 mg (1.5 x 50 mg) PO BID #270 01/25/24 03/05/24 03/05/24 Rx tabs nitroglycerin 0.4 mg sublingual 0.4 mg sublingual Q5M PRN chest 03/03/24 03/05/24 Unknown Rx tablet pain #20 tabs apixaban 5 mg tablet (Eliquis) 5 mg PO BID 03/05/24 03/05/24 03/05/24 History furosemide 20 mg tablet 20 mg PO DAILY 03/05/24 03/05/24 03/05/24 History hydrocodone 7.5 mg-acetaminophen 1 tab PO Q8H PRN Pain 03/05/24 03/05/24 Unknown History 325 mg tablet valsartan 160 mg tablet 160 mg PO DAILY 03/05/24 03/05/24 03/05/24 History Allergies Allergy/AdvReac Type Severity Reaction Status Date / Time simvastatin Allergy ADR-Muscle Verified 03/03/24 16:13 Pain PFSH Acute PFSH: Medical History Hypertension Coronary artery disease Atherosclerosis of coronary artery Dyslipidemia Smoker Surgical History Stented coronary artery History of surgery on left wrist cyst removed History of arthroscopic surgery of shoulder right 2013 Family History Mother Cancer Hypertension Grandmother Diabetes Social History Smoking and tobacco/nicotine status: never used tobacco/nicotine Second hand smoke exposure: No Alcohol intake: never Substance/Drug Use: never Adopted: No Caregiver/support person: No Lives independently: Yes Household members: significant other Housing: Manufactured/Mobile home Marital status: Number of children: 2 Highest education level completed: Some College, No Degree service: No Current occupational status: unemployed Current occupation: works at [employer] Pets and animals: No Vitals/I&O/Wt Last Vital Signs Temp 98 F 03/05/24 10:40 Pulse 67 03/05/24 10:40 Resp 15 03/05/24 10:40 BP 117/75 03/05/24 10:40 Pulse Ox 95 03/05/24 10:40 O2 Del Method Room Air 03/05/24 10:40 Weight last 48 hrs Weight 131.542 kg Physical Exam Narrative: He is alert awake oriented x 3, not in acute distress, morbidly obese Chest clear to auscultation bilaterally Cardiovascular normal heart sounds Abdomen soft nondistended nontender normal bowel sounds Extremities trace bilateral lower extremity edema present Data 03/05/24 11:31 03/05/24 11:31 A&P Assessment and plan (1) Chest pain: (2) Coronary artery disease: Qualifiers: Coronary Disease-Associated Artery/Lesion type: [place] artery [place] vs. transplanted heart: [place] heart Associated angina: without angina Qualified Code(s): I25.10 - Atherosclerotic heart disease of [place] coronary artery without angina pectoris (3) Dyslipidemia: (4) Essential hypertension: Plan aRul Morales is a 53 year old male with past medical history of hypertension, hyperlipidemia, CAD s/p PCI x 2, last PCI in 11/03 presented with complaint of midsternal chest pain since 4 to 5 days, had negative workup in the ER 2 days ago, requiring multiple nitro doses at home, 2 sets of troponins negative today with EKG showing no acute ST-T changes. # Chest pain-likely due to ACS Has history of CAD s/p PCI x2 Cardiology consulted in the ER Plan for cardiac cath in a.m. follow-up cardiology for further recommendations Will keep n.p.o. past midnight Hold Eliquis for now Continue FUNERAL HOME DIRECTOR meds metoprolol, Lipitor, Plavix. #Hypertension-continue FUNERAL HOME DIRECTOR amlodipine, Lasix and valsartan #Chronic low back pain-continue FUNERAL HOME DIRECTOR [place] Attestations Medical Necessity Statement*: He needs hospitalization not crossing 2 midnights for evaluation of chest pain, likely due to ACS with cardiac cath Time Spent in Patient Care: 40 minutes Coding Level of Care Code Acute Code for Chg Fwd Diagnoses Chest pain R07.9 Coronary artery disease involving [place] coronary artery of [place] heart without angina pectoris I25.10 Coronary Disease-Associated Artery/Lesion type: [place] artery [place] vs. transplanted heart: [place] heart Associated angina: without angina Dyslipidemia E78.5 Essential hypertension I10 Time Spent (min) 40
--- NOTE | 2024-03-05 16:41 | P.CONIM_ITS ---
Providers/Reason For Consult 2 Consulting Physician/Specialty*: Riccardo Marie MD/ Cardiology Reason for Consult*: Worsening angina Requesting Physician: Dr Burns Attending Physician: Amina Kelsey MD Primary Care Provider: Winsome Carlson MD History of Present Illness History of Present Illness Raul Morales is a 53 year old male with past medical history of hypertension, CAD, atrial fibrillation on Eliquis who has presented to hospital with 4 to 5 days of worsening chest pain. It is substernal and squeezing. Feels severe discomfort. Has been taking multiple nitros every day. Troponins have not trended up. EKG shows normal sinus rhythm with no significant ST-T wave changes. He had prior interventions to coronary arteries. Review of Systems 2 General: Reports: 10 or more systems reviewed and unremarkable except in HPI and below Card: Reports: chest pain and dyspnea on exertion Medications/Allergies Home Medications Medication Instructions Recorded Confirmed Last Taken Type ibuprofen 200 mg capsule 400 mg PO Q6H PRN Pain 05/18/22 03/05/24 Unknown History coenzyme Q10 100 mg capsule 100 mg PO DAILY 01/19/23 03/05/24 03/05/24 History clopidogrel 75 mg tablet 75 mg PO DAILY #30 tabs 05/11/23 03/05/24 03/05/24 Rx amlodipine 5 mg tablet 5 mg PO DAILY #90 tabs 11/30/23 03/05/24 03/05/24 Rx atorvastatin 40 mg tablet 40 mg PO BEDTIME 12/07/23 03/05/24 03/04/24 History metoprolol tartrate 50 mg tablet 75 mg (1.5 x 50 mg) PO BID #270 01/25/24 03/05/24 03/05/24 Rx tabs nitroglycerin 0.4 mg sublingual 0.4 mg sublingual Q5M PRN chest 03/03/24 03/05/24 Unknown Rx tablet pain #20 tabs apixaban 5 mg tablet (Eliquis) 5 mg PO BID 03/05/24 03/05/24 03/05/24 History furosemide 20 mg tablet 20 mg PO DAILY 03/05/24 03/05/24 03/05/24 History hydrocodone 7.5 mg-acetaminophen 1 tab PO Q8H PRN Pain 03/05/24 03/05/24 Unknown History 325 mg tablet valsartan 160 mg tablet 160 mg PO DAILY 03/05/24 03/05/24 03/05/24 History Allergies Allergy/AdvReac Type Severity Reaction Status Date / Time simvastatin Allergy ADR-Muscle Verified 03/03/24 16:13 Pain PFSH Acute 2 PFSH: Medical History Hypertension Coronary artery disease Atherosclerosis of coronary artery Dyslipidemia Smoker Surgical History Stented coronary artery History of surgery on left wrist cyst removed History of arthroscopic surgery of shoulder right 2013 Family History Mother Cancer Hypertension Grandmother Diabetes Social History Smoking and tobacco/nicotine status: never used tobacco/nicotine Second hand smoke exposure: No Alcohol intake: never Substance/Drug Use: never Adopted: No Caregiver/support person: No Lives independently: Yes Household members: significant other Housing: Manufactured/Mobile home Marital status: Number of children: 2 Highest education level completed: Some College, No Degree service: No Current occupational status: unemployed Current occupation: works at [employer] Pets and animals: No Vitals/I&O/Wt Last Vital Signs Temp 98 F 03/05/24 10:40 Pulse 67 03/05/24 10:40 Resp 15 03/05/24 10:40 BP 117/75 03/05/24 10:40 Pulse Ox 95 03/05/24 10:40 O2 Del Method Room Air 03/05/24 10:40 Weight last 48 hrs Weight 290 lb Physical Exam 2 Narrative: GENERAL: Patient is alert, awake and oriented x3. [] NECK: No jugular vein distension. [] HEENT: No cyanosis. No icterus. No pallor. [] HEART: Regular S1 and S2. No murmur, rub or gallop. [] LUNGS: Clear to auscultate bilaterally. [] CENTRAL NERVOUS SYSTEM: Grossly nonfocal. [] EXTREMITIES: Lower extremities with no edema bilaterally. Data 03/06/24 02:36 03/06/24 02:36 A&P Assessment and plan (1) Unstable angina: (2) Essential hypertension: (3) Dyslipidemia: (4) Hypertension: (5) Atrial fibrillation: Qualifiers: Atrial fibrillation type: paroxysmal Qualified Code(s): I48.0 - Paroxysmal atrial fibrillation Plan Patient has presented with unstable anginal symptoms. We will proceed with coronary angiogram with possible PCI. Risks and benefits of the procedure been discussed. We will continue Plavix. Keep holding Eliquis. N.p.o. past midnight. Order echocardiogram. Thank you for involving us with care of this patient. Will continue to follow. Please call with questions. Consult Attestations 2 Medical Necessity Statement: Care expected to cross 2 midnights. Coding Level of Care Code Acute Code for [facility] Diagnoses Unstable angina I20.0 Essential hypertension I10 Dyslipidemia E78.5 Hypertension I10 Paroxysmal atrial fibrillation I48.0 Atrial fibrillation type: paroxysmal
[2024-03-05] MEDS: HYDROcodone-acetaminophen 7.5-325 mg Tablet 1 TAB PO (16:43)
[2024-03-05] MEDS: famotidine 20 mg/2 mL INJ IVP (16:44)
--- NOTE | 2024-03-05 16:44 | ECG_ITS ---
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 Measurements Intervals [place] Rate: 67 P: 41 [place]: 188 QRS: 29 QRSD: 101 T: 71 QT: 372 QTc: 394 Interpretive Statements SINUS RHYTHM Compared to ECG 03/05/2024 12:45:04 Sinus bradycardia no longer present Electronically Signed On 03-05-2024 23:32:05 CDT by Pat Zuniga M.D. [email or web address].[place] Supplysimpson general hospitalPrizeBox™[facility]st hospitalto be/store/OM/[id number]
[2024-03-05] MEDS: metoprolol tartrate 50 mg Tablet 75 MG PO (19:50)
[2024-03-05] MEDS: atorvastatin 40 mg Tablet PO (19:51)
[2024-03-05 20:04] LABS: Troponin 5 6HR Delta 0.00001 ng/L (0-12)
[2024-03-05] MEDS: aspirin 325 mg Tablet PO (21:08)
--- NOTE | 2024-03-05 21:34 | ECG_ITS ---
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 Measurements Intervals [place] Rate: 61 P: 21 ND: 179 QRS: 11 QRSD: 108 T: 58 QT: 383 QTc: 389 Interpretive Statements SINUS RHYTHM Compared to ECG 03/05/2024 16:44:08 No significant changes Electronically Signed On 03-05-2024 23:16:29 CDT by Pat Zuniga M.D. [email or web address].Eltechsgulf [facility] veterans health care systemSportlobsteruniversity hospitals elyria medical centerQustreet/store/OM/[id number]
[2024-03-06] VITALS (14 sets, daily range): BP systolic 94–147; BP diastolic 64–85; PULSE 56–75; RESP 12–21; TEMP 36.6–37; O2SAT 92–97; BMI 40.9
[2024-03-06] MEDS: nitroglycerin 0.4 mg sublingual Tablet SUBLINGUAL ×5 (00:13→08:41)
[2024-03-06] MEDS: HYDROcodone-acetaminophen 7.5-325 mg Tablet 1 TAB PO ×2 (00:43→14:20)
--- NOTE | 2024-03-06 02:03 | ECG_ITS ---
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 Measurements Intervals [place] Rate: 69 P: 40 DC: 182 QRS: 13 QRSD: 104 T: 57 QT: 382 QTc: 410 Interpretive Statements SINUS RHYTHM MINIMAL ST DEPRESSION [0.025+ mV ST DEPRESSION] Compared to ECG 03/05/2024 21:41:10 ST (T wave) deviation now present Electronically Signed On 03-06-2024 16:55:02 CDT by Riccardo Marie M.D. [email or web address].[email or web address] Communicationslakeside hospital.[employer]/store/[id number]
[2024-03-06 02:45] LABS: Basophils % 0.4 %; Eosinophils # 0.2 10^3/uL (0.0-0.8); Eosinophils % 3.8 %; Hematocrit 41.5 % (37-53); Lymphocytes # 1.4 10^3/uL (0.8-4.8); Mean Corpuscular Volume 93.5 fl (82-101); Mean Platelet Volume 10.2 fL (7.4-10.4); Monocytes # 0.6 10^3/uL (0.2-0.9); Monocytes % 11.5 %; Neutrophils # 2.98 10^3/uL (1.8-7.7); Neutrophils % 57.1 %; Nucleated Red Blood Cells % 0 %; Platelet Count 137 10^3/cmm (157-399); Red Blood Count 4.44 10^6/uL (3.85-5.65); Red Cell Distribution Width 12.4 % (12.1-15.1); White Blood Count 5.22 10^3/uL (3.29-11.43)
[2024-03-06 03:06] LABS: Blood Urea Nitrogen 21 mg/dL (6-20); Calcium 9.2 mg/dL (8.5-10.5); Carbon Dioxide 28 mmol/L (22-29); Chloride 103 mmol/L (98-107); Creatinine Clr Calc Pharmacy 111.8697; Glucose 106 mg/dL (65-115); Magnesium 1.8 mg/dL (1.7-2.3); Osmolality Calculated 291 mOsm/kg (285-295); Phosphorus 3.3 mg/dL (2.5-4.5); Sodium 139 mmol/L (136-145)
[2024-03-06 03:16] LABS: Estmated Average Glucose 120; Hemoglobin A1C 5.8 % (4.0-6.0)
[2024-03-06] MEDS: famotidine 20 mg/2 mL INJ IVP ×2 (04:46→17:45)
--- NOTE | 2024-03-06 05:25 | ECG_ITS ---
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 Measurements Intervals [place] Rate: 61 P: 27 [place]: 188 QRS: 16 QRSD: 111 T: 50 QT: 395 QTc: 400 Interpretive Statements SINUS RHYTHM MODERATE INTRAVENTRICULAR CONDUCTION DELAY [110+ ms QRS DURATION] Compared to ECG 03/06/2024 02:03:17 Intraventricular conduction delay now present ST (T wave) deviation no longer present Electronically Signed On 03-06-2024 16:54:49 CDT by Riccardo Marie M.D. [email or web address].[employer]store/[id number]
--- NOTE | 2024-03-06 06:23 | XACV_ITS ---
Exam Room: [facility] Ht: 183 cm Wt: 138 kg BSA: 2.71 m2 Gender: Male : 1970 Any Known Allergies: Other Exam Priority: Routine Procedure(s): Procedure Description: Diagnostic procedure Procedure Description: PCI procedure Procedure Description: Coronary IVUS Procedure Description: Drug Eluting Coronary Stent Procedure Description: PTCA Procedure Description: Miscellaneous Procedure Description: ACT Procedure Description: Coronary Angiography Diagnostic Cath Status: Urgent Diagnostic Findings * INDICATION: Unstable angina. * Left Main has no significant disease. * Circumflex has no significant disease. * Right Coronary Artery has mild luminal irregularities. Large sized PDA has diffuse severe disease.. * Proximal Left Anterior Descending to Mid Left Anterior Descending: mild to moderate 40% stenosis, DINESH: 3 flow. Patent prior mid LAD stent. * LAD gives rise to a large sized diagonal artery. It has a critical 95% stenosis, DINESH: 3 flow. * Coronary angiography shows right dominance. PCI Status: Urgent Interventional Findings * Procedure detail: We engaged left main artery with XB 3.5 guide catheter. IV heparin was administered to maintain anticoagulation. 0.014 run-through guidewire was used to cross the stenosis in diagonal artery and was placed in the distal vessel. We predilated the stenosis with 2.5 x 15 mm semicompliant balloon. This was followed by IVUS to size the vessel. We then proceeded with placing 3.5 x 18 mm resolute B[place] drug-eluting stent. Post stent deployment, IVUS was performed showing mild underexpansion in the proximal portion of the stent. Stent was postdilated with 3.5 x 12 mm NC balloon at high pressure. At this time final angiogram was performed that showed excellent stent expansion, no residual stenosis and DINESH-3 flow. Guidewire and guide catheter were removed. 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 * 1st Diagonal: 95% stenosis treated with a AB TREK 2.50X15 RX BALLOON, MARTIN Moreno BIJAN 3.5X18 ROCAEL, and MARTIN SUERO EUPHORA RX [id number] BALLOON. 0% residual stenosis, DINESH: 3 flow. Conclusions 1. Critical diagonal artery stenosis s/p successful revascularization with 1 stent.. 2. 1st Diagonal was treated with a Balloon, Drug Eluting Stent, and Balloon. Recommendations * Continue plavix. We will resume eliquis tonight. * High intensity statin therapy. * Outpatient cardiology follow up in 2 weeks. Interventional RX Recommendation: PCI w/o planned CABG Diagnostic RX Recommendation: PCI w/o planned CABG Anticoagulation: Heparin Pressures Phase:Rest AO : 129 / 95 ( 112 ) @ 10:21:00 AM 112 / 78 ( 95 ) @ 10:34:00 AM 130 / 91 ( 110 ) @ 10:41:00 AM 105 / 75 ( 90 ) @ 11:07:00 AM Clinical Evaluation EBL: 5mL-10mL Procedural Details Procedure Consent Obtained. Pre-Procedure Time Out. Identified patient by full name and date of as verbalized by the patient/guarantor. Does the consent match the physician's order: Yes. Accurate & Complete Informed Consent: Yes. Inpatient/Outpatient History & Physical on Chart: Yes. If H&P is completed, is and addenduem needed: No. Visualize and Verify Site with Patient/Guarantor: N/A. Relevant Radiology Images available: Yes. The risks, benefits, and alternatives of sedation and/or procedure were discussed by physician. The patient agrees to continue. Procedure started. [facility] Clinical Fraility Score: 3: Managing Well. Storehouse Clerk Indications: Suspected CAD. Chest Pain Symptom Assessment: Typical Angina Symptoms. Cardiovascular Instability: No. Correct patient, site and procedure confirmed by cath team. PERRLA. Strong, equal hand technical operations manager bilaterally. Lungs clear x 5 lobes. IV Site on Arrival: 18 gauge in the right upper arm. IV Fluids: 0.9% NaCl at KVO. 200 mL infused prior to cath lab radiological technologist. Pre Procedural Pulses: bilateral dorsalis pedis was 3+. Pre Procedural Pulses: bilateral posterior tibial was 3+. Pre Procedural Pulses: bilateral radial was 3+. Oxygen started at 2liters/min via nasal canula. right groin was prepped with chloroprep then draped in the usual sterile fashion. right radial was prepped with chloroprep then draped in the usual sterile fashion. Physician notified. Patient's family in the cath lab radiological technologist waiting room. Dr. Marie will update at the completion of the procedure. Physician arrived. Equipment: 6F - Radial. Cardiac Cath Pack. ACIST Manifold Kit Model BT 2000. Heparinized Saline (2 units/mL), 1000 mL bag. Baseline sample Acquired. HR: 64 BPM. Physician scrubbed in. Immediate Pre-Procedure Time Out. Correct Patient: Yes; Correct Procedure: Yes; Correct Site: Yes; Correct Patient Position: Yes; Correct Supplies: Yes; Dried Flammable Prep: Yes; Blood Products Available: No. Lidocaine 1% infiltrated to the right radial. Arterial access obtained. A 5 chinese TIG catheter in over the exchange J wire. Multiple views taken of left coronary artery. Catheter redirected to the RCA. Unable to cannulate RCA. Catheter removed over the exchange J wire. A 5 chinese JR4 catheter in over the exchange J wire. Multiple views taken of right coronary artery. Catheter removed over the exchange J wire. 6 chinese XB 3.5 guide catheter was inserted over the exchange J wire. Runthrough guidewire was advanced through the guide catheter to lesion in the diaganol. Inflation number : 1 A AB TREK 2.50X15 RX BALLOON was prepped and advanced across the 1st Diag , then inflated to 8 JOSELYN for 0:17 seconds. Inflation number: 2 The AB TREK 2.50X15 RX BALLOON was reinflated across the 1st Diag, to 8 JOSELYN for 0:14 seconds. Balloon out. Results checked. IVUS catheter in OTW. IVUS run performed of the diagonal/LAD. IVUS catheter out OTW. Inflation Number : 3 A MARTIN Moreno BIJAN 3.5X18 ROCAEL -Lot Number# [id number] prepped and advanced across the 1st Diag. The stent was deployed at 12 JOSELYN for 0:25 seconds. Exp 2026-02-27. Stent balloon out over wire. Results checked. ACT drawn. Results 399 seconds. Therapeutic limits - pre-heparin administration 90-150 seconds and monitoring heparin during a vascular procedure >250 seconds. IVUS catheter in OTW. IVUS run performed of the diagonal/LAD. IVUS catheter out OTW. Inflation number : 4 A MARTIN SUERO EUPHORA RX [id number] BALLOON was prepped and advanced across the 1st Diag , then inflated to 14 JOSELYN for 0:20 seconds. Balloon out. Results checked. Wire out. Results checked. Guide catheter out over the exchange J wire. Dr. Marie scrubbed out. A TR Band was successful obtaining hemostatsis at the Right Radial artery insertion site. Post Procedure: Pulses reassessed and unchanged. PERRLA. Strong, equal hand technical operations manager bilaterally. No VTE prophylaxis required. Medication's Wasted: Lidocaine 1% = 18 mL. Medication's Wasted: Nitro = 48.6 mg. Medication's Wasted: Heparin = 4000 Units. Total IV fluids: 51 mL. PCI Indication: CAD (without ischemic symptoms). Post-op diagnosis: PCI of the diagonal s/p ROCAEL x 1. Complications: none. Estimated blood loss: 5mL-10mL. Responsiveness - Normal response to verbal stimuli; alert and oriented, PERRLA. Airway - Unaffected, no intervention required; spontaneous ventilation. Circulation: W/N/L, pulses unchanged. Nausea/Vomiting: No. Procedure completed. Patient transferred by bed to CPRU. Vital chart was stopped. ACT drawn. Results 301 seconds. Therapeutic limits - pre-heparin administration 90-150 seconds and monitoring heparin during a vascular procedure >250 seconds. Access Site Site: Right Radial artery Sheath Size: 6 Fr Hemostasis Method: TR Band Hemostasis Success: Successful Procedure Medications Start: 9:06 AM Stop: 9:06 AM Medication: Versed Amount: 1 mg Route: I.V. Start: 9:07 AM Stop: 9:07 AM Medication: Fentanyl Amount: 50 mcg Route: I.V. Start: 9:14 AM Stop: 9:14 AM Medication: Versed Amount: 1 mg Route: I.V. Start: 9:16 AM Stop: 9:16 AM Medication: Fentanyl Amount: 50 mcg Route: I.V. Start: 9:19 AM Stop: 9:19 AM Medication: Nitrogylcerin Amount: 200 mcg Route: I.A. Start: 9:20 AM Stop: 9:20 AM Medication: Heparin Amount: 5000 units Route: I.V. Start: 9:21 AM Stop: 9:21 AM Medication: Versed Amount: 1 mg Route: I.V. Start: 9:32 AM Stop: 9:32 AM Medication: Heparin Amount: 7000 units Route: I.V. Start: 9:58 AM Stop: 9:58 AM Medication: Nitrogylcerin Amount: 200 mcg Route: I.A. Start: 10:12 AM Stop: 10:12 AM Medication: Plavix Amount: 300 mg Route: P.O. I, the attending physician, have reviewed and verified all procedure medications. Yes, all medications given per verbal order History/Risk Factors Hypertension: Yes Dyslipidemia: Yes Peripheral Arterial Disease (PAD): No Myocardial Infarction (NV): No Obesity: Yes Renal Disease: No Tobacco Use: Former Prior Interventions PCI: Yes CABG: No Valve Surgery: No Date of PCI: 11/08/2023 Report Signatures Finalized by Riccardo Marie MD on 03/11/2024 08:02 PM
[2024-03-06] MEDS: sodium chloride 0.9% 1,000 ML 50 ML IV (06:37)
--- NOTE | 2024-03-06 06:52 | PC.NURSE ---
Patient had 3 episodes of chest pain through out shift. Dr De La Rosa was notified EKG were ordered and nitro was given.
[2024-03-06] MEDS: diphenhydrAMINE 50 mg Capsule PO (08:25)
[2024-03-06] MEDS: metoprolol tartrate 50 mg Tablet 75 MG PO ×2 (08:25→17:45)
[2024-03-06] MEDS: losartan 50 mg Tablet PO (08:25)
[2024-03-06] MEDS: amlodipine 5 mg Tablet PO (08:25)
[2024-03-06] MEDS: clopidogrel 75 mg Tablet PO (08:26)
--- NOTE | 2024-03-06 09:00 | PC.NURSE ---
Patient is off the floor for angiogram.
--- NOTE | 2024-03-06 09:07 | W.PM.OPSUD ---
Surgery/Procedure H&P Update DATE OF PROCEDURE: March 06, 2024 DATE H&P PERFORMED: 03/05/25 H&P UPDATE INFORMATION: I have reviewed H&P completed within last 30 days, I have examined patient prior to procedure and No changes to prior documentation PREOP DIAGNOSIS: Unstable angina PRIMARY INDICATION FOR PROCEDURE: Unstable angina PLANNED PROCEDURE: Left heart cath with possible percutaneous coronary intervention PATIENT REASSESSED PRIOR TO SEDATION, WITH NO CHANGE NOTED: Yes PHYSICAL EXAM: alert, oriented x 3, clear to auscultation bilaterally and regular rate & rhythm AIRWAY EVAL/ANESTHESIA PLAN: normal airway, ASA III, Local Anesthesia, Risks, benefits & alternatives of sedation and/or procedure discussed and Patient agrees to continue as planned ADDITIONAL INFORMATION: Moderate sedation
--- NOTE | 2024-03-06 09:23 | PC.CHAP ---
Pastoral Care Encounter/Spiritual Assessment Type of Contact [] Declined vp revenue cycle visit [] Patient/Family/Request visit [] Outpatient visit [] Follow-up visit [] Physician referral [] Code/Alert [x] Routine visit [] Staff referral [] Actively dying [] Patient sleeping [x] Family support [] [] Out of room [] Palliative care [] [] Receiving care in room [] Pre-surgical visit [] Trauma [] Long length of stay [] ICU visit [] Other: Relational/Emotional Strength [x] Patient feels connected with others/family/visitors/staff [] Distress [] Loneliness/isolation [] Abandonment Spirituality of Patient [x] Person of Faviola [] Attends Synagogue of their [place] [x] Believes in Prayer [] Reads Bible or Gnosticism materials [] There are Spiritual issues to be addressed Senior Mechanical Design Engineer Interventions [x] Prayer [x] Active listening [] Non-anxious presence [x] Spiritual/emotional support [] Crisis/trauma care [] Spiritual counseling [] Bereavement support [] Provided bereavement packet [] Provided Bible/devotional materials [] Provided toy/stuffed animal, coloring book to patient or family member [] Provided Communion [] Anointing/[place] [] Salvation [x] Completed spiritual assessment [] Other: Impact on Illness or Injury [] Angry [] Fearful [] Anxious [] Often cries [] Exhaustion [] Unable to work [] Unable to attend oriental orthodox [] Unable to walk/stand [] Unable to read [] Unable to drive [] Unable to eat/drink [] Unable to sleep [] Unable to be with family [] Patient intubated [] Other: Summary Time spent with patient 5 min
--- NOTE | 2024-03-06 10:31 | PC.NURSE ---
CPRU recovery Note Pt arrived to CPRU post cath procedure. Pt up to bathroom with assist. Right radial TR band site bleeding. No observation of hematoma formation. Additional 5ml air placed in TR band for total of 18ml. Hemostasis achieved, no hematoma present. Radial pulse palpable. Activity restrictions given to patient and verbalized understanding. Pt denies pain. Placed on bedside associate director.
--- NOTE | 2024-03-06 10:59 | PM.PN ---
Subjective Subjective: Patient had critical diagonal artery stenosis s/p successful revascularization with 1 stent. No chest pain. Vitals/I&O/Wt Last Vital Signs Temp 97.8 F 03/06/24 08:00 Pulse 65 03/06/24 10:49 Resp 16 03/06/24 10:49 BP 131/84 03/06/24 10:49 Pulse Ox 96 03/06/24 10:49 O2 Del Method Room Air 03/06/24 10:49 03/05/24 03/06/24 03/06/24 22:59 06:59 14:59 Intake Total 480 / 480 Output Total 150 / 150 200 / 350 Balance -150 / -150 -200 / -350 480 / 480 Weight last 48 hrs Weight 302 lb 0.533 oz Weight 304 lb 10.861 oz Weight 290 lb Physical Exam Narrative: GENERAL: Patient is alert, awake and oriented x3. [] NECK: No jugular vein distension. [] HEENT: No cyanosis. No icterus. No pallor. [] HEART: Regular S1 and S2. No murmur, rub or gallop. [] LUNGS: Clear to auscultate bilaterally. [] CENTRAL NERVOUS SYSTEM: Grossly nonfocal. [] EXTREMITIES: Lower extremities with no edema bilaterally. Data 03/06/24 02:36 03/06/24 02:36 A&P Assessment and plan (1) Unstable angina: (2) Essential hypertension: (3) Dyslipidemia: (4) Hypertension: (5) Atrial fibrillation: Qualifiers: Atrial fibrillation type: paroxysmal Qualified Code(s): I48.0 - Paroxysmal atrial fibrillation Plan Patient had critical large sized diagonal artery stenosis s/p successful revascularization with 1 stent. Continue plavix. We will resume artur bowen. Thank you for involving us with care of this patient. Will continue to follow. Please call with questions. Attestations Medical Necessity Statement*: Care expected to cross 2 midnights. Coding Level of Care Code Acute Code for [facility] Fwd Diagnoses Unstable angina I20.0 Essential hypertension I10 Dyslipidemia E78.5 Hypertension I10 Paroxysmal atrial fibrillation I48.0 Atrial fibrillation type: paroxysmal
--- NOTE | 2024-03-06 11:00 | PC.NURSE ---
Patient arrived back from clinical lab assistant. TR band intact on right wrist with 18mls of air in it. Patient educated on activity restrictions. Nurse will continue to monitor and remove TR band per protocol.
--- NOTE | 2024-03-06 12:32 | PM.PN ---
Subjective Subjective: No acute overnight events noted. Patient was seen at bedside post cardiac cath. Doing well. No complaints of chest pain, shortness of breath or palpitations noted. Medications: Reviewed: Yes Vitals/I&O/Wt Last Vital Signs Temp 98.6 F 03/06/24 11:49 Pulse 60 03/06/24 11:49 Resp 13 03/06/24 11:49 BP 135/78 03/06/24 11:49 Pulse Ox 96 03/06/24 11:49 O2 Del Method Room Air 03/06/24 11:49 03/05/24 03/06/24 03/06/24 22:59 06:59 14:59 Intake Total 480 / 480 Output Total 150 / 150 200 / 350 Balance -150 / -150 -200 / -350 480 / 480 Weight last 48 hrs Weight 137 kg Weight 138.2 kg Weight 131.542 kg Physical Exam Narrative: He is alert awake oriented x 3, not in acute distress, morbidly obese Chest clear to auscultation bilaterally Cardiovascular normal heart sounds Abdomen soft nondistended nontender normal bowel sounds Extremities trace bilateral lower extremity edema present Data 03/06/24 02:36 03/06/24 02:36 A&P Assessment and plan (1) Chest pain: (2) Coronary artery disease: Qualifiers: Coronary Disease-Associated Artery/Lesion type: [place] artery [place] vs. transplanted heart: [place] heart Associated angina: without angina Qualified Code(s): I25.10 - Atherosclerotic heart disease of [place] coronary artery without angina pectoris (3) Dyslipidemia: (4) Essential hypertension: (5) Unstable angina: Plan Raul Morales is a 53 year old male with past medical history of hypertension, hyperlipidemia, paroxysmal atrial fibrillation on Eliquis, CAD s/p PCI x 2, last PCI in 11/03 presented with complaint of midsternal chest pain since 4 to 5 days, had negative workup in the ER 2 days ago, requiring multiple nitro doses at home, 2 sets of troponins negative today with EKG showing no acute ST-T changes. # Chest pain-likely due to ACS/unstable angina Has history of CAD s/p PCI x2 Cardiology consulted in the ER S/p cardiac cath this morning. Had critical diagonal artery stenosis s/p successful revascularization with 1 stent. 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 # Atrial fibrillation-rate controlled. Will continue to hold her Eliquis for now #Hypertension-continue BRAKE OPERATOR SHEET METAL amlodipine, Lasix and valsartan #Chronic low back pain-continue BRAKE OPERATOR SHEET METAL [place] Attestations Medical Necessity Statement*: He needs continued hospitalization for monitoring s/p cardiac cath and PCI x 1. Anticipating discharge home in a.m.. Time Spent in Patient Care: 20 minutes Coding Level of Care Code Acute Code for [facility] Fw Diagnoses Chest pain R07.9 Coronary artery disease involving [place] coronary artery of [place] heart without angina pectoris I25.10 Coronary Disease-Associated Artery/Lesion type: [place] artery [place] vs. transplanted heart: [place] heart Associated angina: without angina Dyslipidemia E78.5 Essential hypertension I10 Unstable angina I20.0 Time Spent (min) 20
[2024-03-06] MEDS: sodium chloride 0.9% 1,000 ML 100 ML IV (14:27)
[2024-03-06] MEDS: apixaban 5 mg Tablet PO (17:46)
[2024-03-06] MEDS: atorvastatin 40 mg Tablet PO (21:12)
[2024-03-07] VITALS (7 sets, daily range): BP systolic 96–133; BP diastolic 71–88; PULSE 56–71; RESP 11–18; TEMP 36.6–36.9; O2SAT 95–98; BMI 41.9
[2024-03-07 04:18] LABS: Basophils % 0.6 %; Eosinophils # 0.2 10^3/uL (0.0-0.8); Hematocrit 42.8 % (37-53); Lymphocytes # 1.1 10^3/uL (0.8-4.8); Lymphocytes % 20.3 %; Mean Corpuscular HGB Conc 31.5 g/dL (30-55); Mean Corpuscular Hemoglobin 29.9 pg (27-33); Mean Corpuscular Volume 94.7 fl (82-101); Mean Platelet Volume 10.7 fL (7.4-10.4); Monocytes # 0.7 10^3/uL (0.2-0.9); Monocytes % 12.8 %; Neutrophils # 3.24 10^3/uL (1.8-7.7); Neutrophils % 61.9 %; Nucleated Red Blood Cells % 0 %; Platelet Count 128 10^3/cmm (157-399); Red Blood Count 4.52 10^6/uL (3.85-5.65); Red Cell Distribution Width 12.5 % (12.1-15.1); White Blood Count 5.23 10^3/uL (3.29-11.43)
[2024-03-07 04:44] LABS: Anion Gap 12.7 (5-19); Blood Urea Nitrogen 17 mg/dL (6-20); Calcium 9.1 mg/dL (8.5-10.5); Carbon Dioxide 30 mmol/L (22-29); Chloride 103 mmol/L (98-107); Creatinine Clr Calc Pharmacy 122.4767; Glomerular Filtration Rate 78.2 mL/min (90-130); Glucose 100 mg/dL (65-115); Osmolality Calculated 294 mOsm/kg (285-295); Potassium 4.7 mmol/L (3.5-5.1); Sodium 141 mmol/L (136-145)
[2024-03-07] MEDS: famotidine 20 mg/2 mL INJ IVP (05:21)
[2024-03-07] MEDS: apixaban 5 mg Tablet PO (08:16)
[2024-03-07] MEDS: FUROsemide 20 mg Tablet PO (08:16)
[2024-03-07] MEDS: metoprolol tartrate 50 mg Tablet 75 MG PO (08:17)
[2024-03-07] MEDS: losartan 50 mg Tablet PO (08:17)
[2024-03-07] MEDS: clopidogrel 75 mg Tablet PO (08:17)
--- NOTE | 2024-03-07 08:18 | PM.PN ---
Vitals/I&O/Wt Last Vital Signs Temp 97.9 F 03/07/24 07:38 Pulse 62 03/07/24 07:38 Resp 14 03/07/24 07:38 BP 133/83 03/07/24 08:17 Pulse Ox 97 03/07/24 07:38 O2 Del Method Room Air 03/07/24 07:38 03/06/24 03/07/24 03/07/24 22:59 06:59 14:59 Intake Total 1999 Balance 1999 Weight last 48 hrs Weight 309 lb 4.937 oz Weight 302 lb 0.533 oz Weight 304 lb 10.861 oz Weight 290 lb Data 03/07/24 03:32 03/07/24 03:32 Coding Level of Care Code Acute Code for [facility]
[2024-03-07 09:58] LABS: Chol HDL Ratio 3.46 mg/dL (1.0-5.00); Cholesterol 142 mg/dL (0-200); HDL Cholesterol 41 mg/dL (60-100); LDL Cholesterol Calculated 81 mg/dL (50-129); LDL HDL Ratio 1.98 RATIO (0.00-3.22); Triglycerides 99 mg/dL (0-150)
[2024-03-07] MEDS: HYDROcodone-acetaminophen 7.5-325 mg Tablet 1 TAB PO (10:00)
--- NOTE | 2024-03-07 11:18 | P.DS_ITS ---
Discharge Providers Date of Admission: 03/05/24 13:58 Date of Discharge: March 07, 2024 Attending Provider at Admission: Amina Kelsey MD Attending Provider at Discharge: Amina Kelsey MD Primary Care Provider: Winsome Carlson MD Diagnoses at Discharge Discharge Diagnosis (1) Chest pain: Status: Acute (2) Coronary artery disease: Status: Acute Qualifiers: Coronary Disease-Associated Artery/Lesion type: [place] artery [place] vs. transplanted heart: [place] heart Associated angina: without angina Qualified Code(s): I25.10 - Atherosclerotic heart disease of [place] coronary artery without angina pectoris (3) Dyslipidemia: Status: Acute (4) Essential hypertension: Status: Chronic (5) Unstable angina: Status: Acute Reason for Visit Reason for Visit: chest pains Brief History: Raul Morales is a 53 year old male with past medical history of hypertension, hyperlipidemia, CAD s/p PCI x 2, last PCI in 11/03 presented with complaint of midsternal chest pain since 4 to 5 days. As per the patient he started having midsternal chest pain, 9/10 in intensity, squeezing, associated with shortness of breath, fluttering in the chest and choking sensation, worsening with exertion, relieved with nitroglycerin. He has been taking nitro sublingual multiple times since last 2 days. He was seen in ER 2 days ago for similar complaints and had negative troponins and normal EKG and was discharged home with p.o. sublingual nitroglycerin to be taken as needed. But he has been having chest pain more often since last 2 days needing multiple nitroglycerin doses and hence came to ER for further evaluation. He had 2 PCI's done, one was 1 year ago and the second was in October 2023. He denies any history of nausea, vomiting, fever, cough or dizziness. 2 sets of troponins negative in the ER a nd EKG normal sinus rhythm with no acute ST-T changes. BNP was 48 Hospital Course Hospital Course 03/05 # Chest pain-likely due to ACS Has history of CAD s/p PCI x2 Cardiology consulted in the ER Plan for cardiac cath in a.m. follow-up cardiology for further recommendations Will keep n.p.o. past midnight Hold Eliquis for now Continue RESEARCH ANTHROPOLOGIST meds metoprolol, Lipitor, Plavix. 03/06 # Chest pain-likely due to ACS/unstable angina Has history of CAD s/p PCI x2 Cardiology consulted in the ER S/p cardiac cath this morning. Had critical diagonal artery stenosis s/p successful revascularization with 1 stent. Continue to hold Eliquis for now Continue RESEARCH ANTHROPOLOGIST meds metoprolol, Lipitor, Plavix. He is doing better, feeling well and ambulating with no complaint of chest pain or shortness of breath. Physical Exam Narrative: He is alert awake oriented x 3, not in acute distress, morbidly obese Chest clear to auscultation bilaterally Cardiovascular normal heart sounds Abdomen soft nondistended nontender normal bowel sounds Extremities trace bilateral lower extremity edema present Discharge Data Studies Completed and Pending Completed Studies During Hospitalization Category Date Time Status XR chest 1V portable [id number] Urgent Exams 03/05/24 10:44 Completed Pending at discharge Category Date Time Status COLD ROLLING COORDINATOR request for service Routine Exams 03/06/24 06:23 Taken Radiology Impressions Chest X-Ray 03/05/24 10:44 IMPRESSION: No acute findings. Laboratory Results WBC 5.23 10^3/uL (3.29-11.43) 03/07/24 03:32 RBC 4.52 10^6/uL (3.85-5.65) 03/07/24 03:32 Hgb 13.50 g/dL (11.27-16.99) 03/07/24 03:32 Hct 42.8 % (37-53) 03/07/24 03:32 MCV 94.7 fl (82-101) 03/07/24 03:32 MCH 29.9 pg (27-33) 03/07/24 03:32 MCHC 31.5 g/dL (30-55) 03/07/24 03:32 RDW 12.5 % (12.1-15.1) 03/07/24 03:32 Plt Count 128 10^3/cmm (157-399) L 03/07/24 03:32 MPV 10.7 fL (7.4-10.4) H 03/07/24 03:32 Neut % (Auto) 61.9 % 03/07/24 03:32 Lymph % (Auto) 20.3 % 03/07/24 03:32 [place] % (Auto) 12.8 % 03/07/24 03:32 Eos % (Auto) 4.0 % 03/07/24 03:32 Baso % (Auto) 0.6 % 03/07/24 03:32 Neut # (Auto) 3.24 10^3/uL (1.8-7.7) 03/07/24 03:32 Lymph # (Auto) 1.1 10^3/uL (0.8-4.8) 03/07/24 03:32 [place] # (Auto) 0.7 10^3/uL (0.2-0.9) 03/07/24 03:32 Eos # (Auto) 0.2 10^3/uL (0.0-0.8) 03/07/24 03:32 Baso # (Auto) 0.0 10^3/uL (0.0-0.1) 03/07/24 03:32 Nucleated RBC % (auto) 0 % 03/07/24 03:32 Nucleated RBCs # 0.0 /100WBC 03/07/24 03:32 Sodium 141 mmol/L (136-145) 03/07/24 03:32 Potassium 4.7 mmol/L (3.5-5.1) 03/07/24 03:32 Chloride 103 mmol/L (98-107) 03/07/24 03:32 Carbon Dioxide 30 mmol/L (22-29) H 03/07/24 03:32 Anion Gap 12.7 (5-19) 03/07/24 03:32 BUN 17 mg/dL (6-20) 03/07/24 03:32 Creatinine 1.0 mg/dL (0.7-1.2) 03/07/24 03:32 GFR Calculation 78.2 mL/min (90-130) L 03/07/24 03:32 Glucose 100 mg/dL (65-115) 03/07/24 03:32 Estimat Average Glucose 120 03/06/24 02:36 Hemoglobin A1c 5.8 % (4.0-6.0) 03/06/24 02:36 Calculated Osmolality 294 mOsm/kg (285-295) 03/07/24 03:32 Calcium 9.1 mg/dL (8.5-10.5) 03/07/24 03:32 Phosphorus 3.3 mg/dL (2.5-4.5) 03/06/24 02:36 Magnesium 1.8 mg/dL (1.7-2.3) 03/06/24 02:36 Total Bilirubin 0.3 mg/dL (0.15-1.2) 03/05/24 11:31 AST 18 U/L (0-40) 03/05/24 11:31 ALT 17 U/L (0-41) 03/05/24 11:31 Alkaline Phosphatase 85 U/L (40-130) 03/05/24 11:31 Troponin T Baseline < 6 ng/L (0-15) 03/05/24 11:31 Troponin T 120 Minute 6.00 ng/L (0-15) 03/05/24 14:35 Delta Troponin T 0.98097 ABS# (0-10) 03/05/24 14:35 Troponin T Hi Sens 6Hr 6.00 ng/L (0-15) 03/05/24 18:18 Troponin T Hi Sens 6Hr Delta 0.57918 ng/L (0-12) 03/05/24 18:18 NT-Pro-B Natriuret Pep 48 pg/mL (0-125) 03/05/24 11:31 Total Protein 6.9 g/dL (6.6-8.7) 03/05/24 11:31 Albumin 4.1 g/dL (3.5-5.2) 03/05/24 11:31 Globulin 2.8 g/dL (1.3-4.6) 03/05/24 11:31 Triglycerides 99 mg/dL (0-150) 03/07/24 03:32 Cholesterol 142 mg/dL (0-200) 03/07/24 03:32 LDL Cholesterol, Calc 81 mg/dL (50-129) 03/07/24 03:32 HDL Cholesterol 41 mg/dL (60-100) L 03/07/24 03:32 LDL/HDL Ratio 1.98 RATIO (0.00-3.22) 03/07/24 03:32 Cholesterol/HDL Ratio 3.46 mg/dL (1.0-5.00) 03/07/24 03:32 Vitals Last Vital Signs Temp 97.9 F 03/07/24 07:38 Pulse 62 03/07/24 07:38 Resp 14 03/07/24 07:38 BP 133/83 03/07/24 08:17 Pulse Ox 97 03/07/24 07:38 O2 Del Method Room Air 03/07/24 07:38 Discharge Plan Discharge Patient Disposition: Home Condition: Stable Prescriptions: Continued atorvastatin 40 mg tablet 40 mg PO BEDTIME coenzyme Q10 100 mg capsule 100 mg PO DAILY metoprolol tartrate 50 mg tablet 75 mg PO BID Qty: 270 2RF clopidogrel 75 mg tablet 75 mg PO DAILY Qty: 30 11RF amlodipine 5 mg tablet 5 mg PO DAILY Qty: 90 3RF ibuprofen 200 mg Capsule 400 mg PO Q6H PRN (Reason: Pain) nitroglycerin 0.4 mg tablet, sublingual 0.4 mg sublingual Q5M PRN (Reason: chest pain) Qty: 20 0RF Rx Instructions: do not exceed 3 doses per episode hydrocodone-acetaminophen 7.5-325 mg tablet 1 tab PO Q8H PRN (Reason: Pain) furosemide 20 mg tablet 20 mg PO DAILY valsartan 160 mg tablet 160 mg PO DAILY Eliquis 5 mg tablet 5 mg PO BID Discharge Orders: Discharge Order (Routine); Ordered 03/07/24 Ordered By: Amina Kelsey Referrals: Victorina Mccabe FNP [Nurse Practitioner] - Winsome Carlson MD [Primary Care Provider] - 03/13/24 9:40 am (April Souza will be the new PCP, Dr Carlson is no longer there) Discharge Diet: Cardiac Discharge Activity: Increase activity as tolerated Patient Instructions: Coronary Artery Disease (DC), Chest Pain (DC), Coronary Angioplasty (DC), Opioid Safety, Post Angiogram Home Care Instructions Activity Restrictions/Additional Instructions: Bedrest for 2 weeks Discharge Attestations Time Spent in Discharge Care*: less than 30 min Status at Discharge: Cognitive status at discharge: cognitively intact , Behavioral status at discharge: cooperative , Quality Metrics Clinical Quality Measures [ No reported AMI, CVA or VTE this stay] Coding Level of Care Code Acute Code for g Fwd Diagnoses Chest pain R07.9 Coronary artery disease involving [place] coronary artery of [place] heart without angina pectoris I25.10 Coronary Disease-Associated Artery/Lesion type: [place] artery [place] vs. transplanted heart: [place] heart Associated angina: without angina Dyslipidemia E78.5 Essential hypertension I10 Unstable angina I20.0 Time Spent (min) 15
== END 2024-03-07 12:18 | disposition home or self-care (01) ==
LOC: ER 11:28 → CSU 18:35 → ER IP 03-06 05:11
PROVIDERS: Internal Medicine; Physician Assistant; Admitting Provider Internal Medicine; Emergency Provider Emergency Medicine; PCP Family Medicine; Visit Provider Internal Medicine
DX: I25.110 Atherosclerotic heart disease of native coronary artery with unstable angina pectoris (principal); I48.0 Paroxysmal atrial fibrillation; I10 Essential (primary) hypertension; E78.5 Hyperlipidemia, unspecified; M54.50 Low back pain, unspecified; G89.29 Other chronic pain; E66.01 Morbid (severe) obesity due to excess calories; Z79.899 Other long term (current) drug therapy; Z79.01 Long term (current) use of anticoagulants; Z88.8 Allergy status to other drugs, medicaments and biological substances; Z95.5 Presence of coronary angioplasty implant and graft; Z79.02 Long term (current) use of antithrombotics/antiplatelets
CPT/HCPCS: 36415; 71045; 80048; 80053; 80061; 83036; 83735; 83880; 84100; 84484; 85025; 85347; 92978; 93005; 93454; 94664; 96374; 96376; 99152; 99153; 99285; C1725; C1753; C1769; C1874; C1887; C1894; C9600; G0378; J1644; J2250; J3010; J3490; J7030; Q0163; Q9967

== ENCOUNTER → 2024-05-15 09:56 | Outpatient (BNVA) | payer OTHER, SELFPAY | PROVIDERS: PCP Nurse Practitioner Family; Visit Provider Nurse Practitioner Family | DX: I25.10 Atherosclerotic heart disease of native coronary artery without angina pectoris (principal) | CPT/HCPCS: 80061 ==

== ENCOUNTER → 2024-10-15 13:56 | Outpatient (BNVA) | payer OTHER, SELFPAY | PROVIDERS: PCP Nurse Practitioner Family; Visit Provider Clinical Nurse Specialist Adult Health | DX: I10 Essential (primary) hypertension (principal) | CPT/HCPCS: 80053; 80061; 82043; 84550; 85025 ==

== ENCOUNTER 2024-11-02 12:56 | Outpatient (CLI) | payer OTHER, SELFPAY ==
--- NOTE | 2024-11-02 13:00 | CT_ITS ---
WS: [id number] LDCT LUNG CANCER SCREENING TECHNIQUE: Noncontrast CT of the chest with coronal and sagittal reformatted images. CLINICAL INFORMATION: Z87.891 - Personal history of nicotine dependence COMPARISON: None. DLP: 218.47 mGy.cm DIvol: Mean CTDIvol: 5.10 (mGy) All CT scans at [facility] use at least one of these dose optimization techniques: automated exposure control; mA and/or kV adjustment per patient size (includes targeted exams where dose is matched to clinical indication); or iterative reconstruction. FINDINGS: Small nodule RIGHT upper lobe measuring 4 to 5 mm. No other suspicious pulmonary parenchymal abnormalities. Normal caliber thoracic aorta. Coronary stents. No mediastinal or hilar lymphadenopathy. No axillary lymphadenopathy. RIGHT adrenal adenoma measuring 2.3 cm. Smaller LEFT adrenal adenoma. Normal GE junction. Mild thoracic curve. CT/CT lung screening [id number] IMPRESSION: LUNG-RADS: 2-Benign Appearance or Behavior FOLLOW UP: 12 Month: Continue annual screening with LDCT
== END 2024-11-02 12:57 | disposition home or self-care (01) ==
PROVIDERS: PCP Clinical Nurse Specialist Adult Health; Visit Provider Clinical Nurse Specialist Adult Health
DX: Z12.2 Encounter for screening for malignant neoplasm of respiratory organs (principal); Z87.891 Personal history of nicotine dependence; R91.1 Solitary pulmonary nodule; Z96.89 Presence of other specified functional implants; D35.01 Benign neoplasm of right adrenal gland; D35.02 Benign neoplasm of left adrenal gland; M43.8X4 Other specified deforming dorsopathies, thoracic region
CPT/HCPCS: 71271

== ENCOUNTER → 2024-12-19 08:31 | Outpatient (BNVA) | payer OTHER, SELFPAY | PROVIDERS: PCP Clinical Nurse Specialist Adult Health; Visit Provider Clinical Nurse Specialist Adult Health | DX: N39.0 Urinary tract infection, site not specified (principal) | CPT/HCPCS: 81000 ==

== ENCOUNTER 2024-12-26 12:56 | Outpatient (CLI) | payer OTHER, SELFPAY | END 2024-12-26 12:57 | disposition home or self-care (01) | LOC: SLEEP 12:57 | PROVIDERS: PCP Clinical Nurse Specialist Adult Health; Visit Provider Clinical Nurse Specialist Adult Health | DX: G47.33 Obstructive sleep apnea (adult) (pediatric) (principal); I10 Essential (primary) hypertension; G47.36 Sleep related hypoventilation in conditions classified elsewhere | CPT/HCPCS: G0399 ==

== ENCOUNTER → 2025-03-06 15:29 | Outpatient (BNVA) | payer OTHER, SELFPAY | PROVIDERS: PCP Clinical Nurse Specialist Adult Health; Visit Provider Clinical Nurse Specialist Adult Health | DX: D69.6 Thrombocytopenia, unspecified (principal); N18.2 Chronic kidney disease, stage 2 (mild); G47.33 Obstructive sleep apnea (adult) (pediatric); I25.10 Atherosclerotic heart disease of native coronary artery without angina pectoris; I10 Essential (primary) hypertension | CPT/HCPCS: 80053; 80061; 83036; 85025 ==

== ENCOUNTER → 2025-05-29 08:45 | Outpatient (BNVA) | payer OTHER, SELFPAY | PROVIDERS: PCP Clinical Nurse Specialist Adult Health; Visit Provider Clinical Nurse Specialist Adult Health | DX: E78.1 Pure hyperglyceridemia (principal); N18.2 Chronic kidney disease, stage 2 (mild); I10 Essential (primary) hypertension | CPT/HCPCS: 80053; 80061; 82306; 85025 ==

== ENCOUNTER 2025-06-11 06:47 | Day surgery (SDC) | payer OTHER, SELFPAY ==
[2025-06-11 07:13] VITALS: BP 93/50; PULSE 71; RESP 18; TEMP 36.6; O2SAT 94; BMI 36.6
--- NOTE | 2025-06-11 07:33 | W.PM.OPSFHP ---
Same Day Surgery H&P Indication for Procedure/HPI DATE OF PROCEDURE: June 11, 2025 CHIEF COMPLAINT/INDICATIONFOR SURGICAL PROCEDURE: need for screening colonoscopy PREOP DIAGNOSIS: positive cologuard PLANNED PROCEDURE: Operation Date: 06/11/25 08:20 Proposed Procedures p Colonoscopy 90341 [id number] R19.5(Not Applicable) - Francisco J Vann MD Medications/Allergies* Home Medications ?Medication ?Instructions ?Recorded ?Confirmed ?Type coenzyme Q10 100 mg capsule 100 mg PO DAILY 01/19/23 06/11/25 History hydrocodone 7.5 mg-acetaminophen 1 tab PO Q8H PRN Pain 03/05/24 06/11/25 History 325 mg tablet baclofen 10 mg tablet 10 mg PO DAILY PRN muscle spasm 03/06/25 06/11/25 History ezetimibe 10 mg tablet 10 mg PO DAILY 06/03/25 06/11/25 History valsartan 160 mg tablet 160 mg PO DAILY 06/03/25 06/11/25 History amlodipine 5 mg tablet 5 mg PO BEDTIME 06/10/25 06/11/25 History Allergies/Adverse Reactions Allergy/AdvReac Type Severity Reaction Status Date / Time simvastatin Allergy ADR-Muscle Verified 06/11/25 07:06 Pain Current Medications: Generic Name Dose Route Start Last Admin Trade Name Freq PRN Reason Stop Dose Admin Sodium Chloride 1,000 mls @ 15 mls/hr 06/11/25 06:50 06/11/25 07:15 Sodium Chloride 0.9% IV 06/12/25 06:49 15 mls/hr .Q24H PRN Administration COLONOSCOPY FLUIDS Pertinent History/Comorbid Conditions* Medical History Severe obstructive sleep apnea Hypertriglyceridemia Thrombocytopenia Stage 2 chronic kidney disease Migraine headache without aura Kidney stone Adrenal nodule noted in 2022, follow up imaging-- 2.5 x 2.2 cm right adrenal nodule and 1.3 cm left adrenal nodule show internal attenuation averaging less than 10 Hounsfield units on noncontrast sequence in keeping with lipid rich adenomas. Witnessed episode of apnea Snoring Back pain follows with pain management for this Coronary artery disease hx of 3 stents Paroxysmal atrial fibrillation follows with cardiology Essential hypertension Atherosclerosis of coronary artery Dyslipidemia Former smoker former smoker, quit 2023. 30 pack year history Surgical History (Updated 10/15/24 @ 13:46 by Bobby Otoole NP) Stented coronary artery X3 History of surgery on left wrist cyst removed History of arthroscopic surgery of shoulder right 2013 Family History (Updated 10/15/24 @ 13:51 by Bobby Otoole NP) Brother, arrythmigenic ventricular dysplasia Diabetes Grandmother Atrial fibrillation Father Sudden cardiac Brother Cancer Mother Hypertension Mother Social History Smoking and tobacco/nicotine status: current every day tobacco/nicotine user (vaping) e-cigarettes E-Cigarette Details: with nicotine Quit status (tobacco/nicotine): has quit using Year quit tobacco: 2023 Former quit date comment: 30 pack year history of cigarettes Second hand smoke exposure: No Alcohol intake: former Substance/Drug Use: former Adopted: No Caregiver/support person: No Lives independently: Yes Household members: significant other Housing: Manufactured/Mobile home Marital status: Number of children: 2 Highest education level completed: Some College, No Degree service: No Current occupational status: unemployed 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
--- NOTE | 2025-06-11 07:45 | ANES.PREANE2 ---
Pre-Anesthetic Assessment Height/Weight: Height 1.83 m Weight 122.47 kg Temp Pulse Resp BP Pulse Ox O2 Del Method 97.8 F 71 18 93/50 94 Room Air 06/11/25 07:13 06/11/25 07:13 06/11/25 07:13 06/11/25 07:13 06/11/25 07:13 06/11/25 07:13 Preop Diagnosis: positive cologuard Operation Date: 06/11/25 08:20 Proposed Procedures p Colonoscopy [id number] R19.5(Not Applicable) - Francisco J Vann MD Familial anesthetic complications: none Was Beta Clemencia taken within 24 hours: Yes Was Clonidine taken within 24 hours: N/A Last intake: Intake Last Liquid Date 06/10/25 Last Liquid Time 23:45 Last Solid Date 06/09/25 Last Solid Time 19:00 Social Tobacco (vapes daily ) Exam alert, oriented x 3 and clear to auscultation bilaterally Airway Mallampati: Class I Dentition: false History/ROS No significant history except as noted Pulmonary Sleep Apnea (wears CPAP sometimes ) CV/HEM Atrial Fibrillation, Coronary Artery Disease and Hypertension CKD Hepatic None reported GI None reported Metabolic Hyperlipidemia and Morbid Obesity [facility] None reported Neuropsych None reported Anesthetic Plan ASA status: 3 Anesthesia: Anesthesia Evaluation and MAC Risk of > 500 ml blood loss (7ml/kg in children): Yes, adequate IV access and fluids planned Medications/Allergies Home Medications ?Medication ?Instructions ?Recorded ?Confirmed ?Last Taken ?Type coenzyme Q10 100 mg capsule 100 mg PO DAILY 01/19/23 06/11/25 06/10/25 History hydrocodone 7.5 mg-acetaminophen 1 tab PO Q8H PRN Pain 03/05/24 06/11/25 06/10/25 History 325 mg tablet atorvastatin 40 mg tablet 40 mg PO BEDTIME #30 tabs 10/15/24 06/11/25 06/10/25 Rx clopidogrel 75 mg tablet 75 mg PO DAILY #30 tabs 10/15/24 06/11/25 06/06/25 Rx furosemide 20 mg tablet 20 mg PO DAILY #30 tabs 10/15/24 06/11/25 06/10/25 Rx nitroglycerin 0.4 mg sublingual 0.4 mg sublingual Q5M PRN chest 10/15/24 06/11/25 Unknown Rx tablet pain #20 tabs metoprolol tartrate 50 mg tablet 75 mg (1.5 x 50 mg) PO BID #270 11/27/24 06/11/25 06/11/25 Rx tabs auto-titrating CPAP 6-16 CM with #1 ea 01/09/25 05/29/25 Unknown Rx tubing, mask and all other supplies baclofen 10 mg tablet 10 mg PO DAILY PRN muscle spasm 03/06/25 06/11/25 Unknown History apixaban 5 mg tablet (Eliquis) 5 mg PO BID #60 tabs 04/10/25 06/11/25 06/08/25 Rx ezetimibe 10 mg tablet 10 mg PO DAILY 06/03/25 06/11/25 06/10/25 History valsartan 160 mg tablet 160 mg PO DAILY 06/03/25 06/11/25 06/10/25 History amlodipine 5 mg tablet 5 mg PO BEDTIME 06/10/25 06/11/25 06/10/25 History Allergies Allergy/AdvReac Type Severity Reaction Status Date / Time simvastatin Allergy ADR-Muscle Verified 06/11/25 07:06 Pain Current Medications Generic Name Dose Route Start Last Admin Trade Name Freq PRN Reason Stop Dose Admin Sodium Chloride 1,000 mls @ 15 mls/hr 06/11/25 06:50 06/11/25 07:15 Sodium Chloride 0.9% IV 06/12/25 06:49 15 mls/hr .Q24H PRN Administration COLONOSCOPY FLUIDS PFSH Anesthesia Medical History Severe obstructive sleep apnea Hypertriglyceridemia Thrombocytopenia Stage 2 chronic kidney disease Migraine headache without aura Kidney stone Adrenal nodule noted in 2022, follow up imaging-- 2.5 x 2.2 cm right adrenal nodule and 1.3 cm left adrenal nodule show internal attenuation averaging less than 10 Hounsfield units on noncontrast sequence in keeping with lipid rich adenomas. Witnessed episode of apnea Snoring Back pain follows with pain management for this Coronary artery disease hx of 3 stents Paroxysmal atrial fibrillation follows with cardiology Essential hypertension Atherosclerosis of coronary artery Dyslipidemia Former smoker former smoker, quit 2023. 30 pack year history Surgical History Stented coronary artery X3 History of surgery on left wrist cyst removed History of arthroscopic surgery of shoulder right 2013 Family History Mother Cancer Hypertension Grandmother Diabetes Father Atrial fibrillation Brother , arrythmigenic ventricular dysplasia Sudden cardiac Social History Smoking and tobacco/nicotine status: current every day tobacco/nicotine user (vaping) e-cigarettes E-Cigarette Details: with nicotine Quit status (tobacco/nicotine): has quit using Year quit tobacco: 2023 Former quit date comment: 30 pack year history of cigarettes Second hand smoke exposure: No Alcohol intake: former Substance/Drug Use: former Adopted: No Caregiver/support person: No Lives independently: Yes Household members: significant other Housing: Manufactured/Mobile home Marital status: Number of children: 2 Highest education level completed: Some College, No Degree service: No Current occupational status: unemployed Current occupation: works at [employer] Pets and animals: No Data Anesthesia Cardiac Studies: Echocardiogram 11/07/23 Sestamibi Stress Test (Cardiology) 08/30/22 Holter Monitor 09/17/22
[2025-06-11 08:40] VITALS: BP 107/67; PULSE 66; RESP 18; TEMP 36.1; O2SAT 96
[2025-06-11 09:00] VITALS: BP 111/69; PULSE 69; RESP 18; O2SAT 96
--- NOTE | 2025-06-11 09:30 | ANE.PACU2 ---
Inpatient post-anesthesia follow up: Airway intact: Yes Vital signs: Temperature 97 F Pulse Rate 69 Respiratory Rate 18 Blood Pressure 111/69 Pulse Oximetry 96 Oxygen Delivery Me thod Room Air Oxygen Flow Rate Fraction of Inspir ed Oxygen Hydration adequate: Yes Nausea and vomiting: No Pain level: 1 Mental status: Baseline
== END 2025-06-11 09:30 | disposition home or self-care (01) ==
PROVIDERS: PCP Clinical Nurse Specialist Adult Health; Visit Provider Surgery
PROC: 0DJD8ZZ Inspection of Lower Intestinal Tract, Via Natural or Artificial Opening Endoscopic (ICD-10-PCS; CPT 45378; principal; 2025-06-11 08:20)
DX: Z12.11 Encounter for screening for malignant neoplasm of colon (principal); R19.5 Other fecal abnormalities; D12.4 Benign neoplasm of descending colon; D12.3 Benign neoplasm of transverse colon; D12.5 Benign neoplasm of sigmoid colon; Z79.891 Long term (current) use of opiate analgesic; I12.9 Hypertensive chronic kidney disease with stage 1 through stage 4 chronic kidney disease, or unspecified chronic kidney disease; N18.2 Chronic kidney disease, stage 2 (mild); G47.33 Obstructive sleep apnea (adult) (pediatric); Z99.89 Dependence on other enabling machines and devices; I25.10 Atherosclerotic heart disease of native coronary artery without angina pectoris; Z95.5 Presence of coronary angioplasty implant and graft; E78.5 Hyperlipidemia, unspecified; F17.290 Nicotine dependence, other tobacco product, uncomplicated; I48.91 Unspecified atrial fibrillation; E66.01 Morbid (severe) obesity due to excess calories; Z68.36 Body mass index [BMI] 36.0-36.9, adult; Z79.02 Long term (current) use of antithrombotics/antiplatelets
CPT/HCPCS: 45380; 45385; 88305; J2704; J7030; J9999